=== PATIENT | female | born 1975 | race Caucasian/White ===

== ENCOUNTER 2020-01-12 07:42 | Outpatient (CLI) | payer OTHER, SELFPAY ==
[2020-01-12 07:57] LABS: Basophils Absolute Auto 0.04 K/mm3 (0.00-0.10); Basophils Percent Auto 0.6 % (0.0-1.0); Eosinophils Percent Auto 1.6 % (1.0-6.0); Hematocrit 40.1 % (35.0-49.0); Hemoglobin 13.1 g/dL (12.0-15.0); Immature Granulocyte Absolute 0.02 K/mm3 (0.00-0.00); Immature Granulocyte Percent A 0.3 % (0.0-0.0); Lymphocytes Absolute Auto 1.76 K/mm3 (1.10-4.50); Lymphocytes Percent Auto 28.2 % (18.0-42.0); Mean Corpuscular HGB Conc 32.7 g/dL (32.0-36.0); Mean Corpuscular Hemoglobin 30.8 pg (27.0-31.0); Mean Corpuscular Volume 94.1 fL (78.0-102.0); Mean Platelet Volume 9.7 fl (9.2-11.8); Monocytes Absolute Auto 0.76 K/mm3 (0.10-0.90); Monocytes Percent Auto 12.2 % (2.0-11.0); Neutrophils Absolute Auto 3.6 K/mm3 (1.7-7.2); Neutrophils Percent Auto 57.1 % (50.0-70.0); Platelet Count Result 388 K/mm3 (150-420); Red Blood Count 4.26 M/mm3 (4.20-5.40); White Blood Count 6.2 K/mm3 (4.8-10.8)
[2020-01-12 08:10] LABS: Add Urine Microscopic? YES; Appearance Urine Clear (Clear); Bilirubin Urine Negative (Negative); Color Urine Yellow (Yellow); Glucose Urine UA Negative (Negative); Ketones Urine Negative (Negative); Leukocyte Esterase Ur Negative LEU/UL (Negative); Nitrate Urine Negative (Negative); Protein Urine Negative (Negative); Specific Grav Ur 1.025 (1.010-1.020); Urobilinogen Urine 0.2 mg/dL (0.2-1.0)
[2020-01-12 08:18] LABS: Bacteria Urine 2+ /hpf; RBC Urine >75 /hpf (0-2); Squamous Epithelial Cell Urine Few /hpf (Few); WBC Urine 0-3 /hpf (0-3)
[2020-01-12 08:19] LABS: Blood Urine 3+ (Negative)
[2020-01-12 09:52] LABS: Alanine Aminotransferase 12 U/L (14-59); Albumin Level 3.6 g/dL (3.4-5.0); Alkaline Phosphatase 66 U/L (46-116); Anion Gap 16.3 mmol/L (7-16); Aspartate Amino Transferase 12 U/L (15-37); Bilirubin,Total 0.5 mg/dL (0.00-1.00); Blood Urea Nitrogen 15 mg/dL (7-18); Calcium 9.2 mg/dL (8.5-10.1); Carbon Dioxide 27 mmol/L (21-32); Chloride 105 mmol/L (98-108); Cholesterol 197 mg/dL (0-200); Estimated Glomerular Filt Rate > 60; Glucose 90 mg/dL (70-99); HDL Direct 49 mg/dL (40-60); LDL Cholesterol Calculated 130 mg/dL (<130); Osmolality Calculated 298 mOsm/kg (285-295); Potassium 4.3 mmol/L (3.5-5.1); Sodium 144 mmol/L (136-145); Thyroid Stimulating Hormone 1.07 uIU/mL (0.36-3.74); Total Protein 6.9 g/dL (6.4-8.2); Triglycerides 88 mg/dL (0-150)
== END 2020-01-12 07:43 | disposition home or self-care (01) ==
LOC: CHSLAB 07:45
PROVIDERS: PCP Internal Medicine; Visit Provider Nurse Practitioner Family
DX: E66.01 Morbid (severe) obesity due to excess calories (principal); F41.1 Generalized anxiety disorder; G43.709 Chronic migraine without aura, not intractable, without status migrainosus
CPT/HCPCS: 36415; 80053; 80061; 81001; 84443; 85025

== ENCOUNTER 2020-02-08 12:44 | Outpatient (CLI) | payer OTHER, SELFPAY ==
--- NOTE | ~2020-02-08 | MM_ITS ---
EXAMINATION: MM screening [facility] HISTORY: Screening mammogram TECHNIQUE: Craniocaudal and mediolateral oblique 3-D tomosynthesis images were obtained and synthetic 2-D images were generated. CAD analysis was submitted and interpreted. COMPARISON: 02/06/2019 diagnostic right mammogram 01/24/2019, 01/18/2018 bilateral digital screening mammogram examinations BREAST PARENCHYMAL COMPOSITION: There are scattered areas of fibroglandular density. FINDINGS: There is no evidence of suspicious mass, calcification, or architectural distortion to sugg est malignancy in either breast. There has been no suspicious interval change. IMPRESSION: 1. No mammographic evidence of malignancy. 2. Recommend routine screening mammography in one year. BI-RADS Category 1: Negative Reviewed, dictated and finalized at location A.
== END 2020-02-08 12:45 | disposition home or self-care (01) ==
LOC: CHSIMG 12:46
PROVIDERS: PCP Internal Medicine; Visit Provider Nurse Practitioner Family
DX: Z12.31 Encounter for screening mammogram for malignant neoplasm of breast (principal)
CPT/HCPCS: 77063; 77067

== ENCOUNTER 2020-08-26 11:48 | Outpatient (CLI) | payer OTHER, SELFPAY ==
[2020-08-27 13:51] LABS: SARS-CoV-2 RNA PCR Negative
== END 2020-08-26 11:49 | disposition home or self-care (01) ==
LOC: CHSLAB 11:50
PROVIDERS: PCP Internal Medicine; Visit Provider Internal Medicine
DX: Z20.828 Contact with and (suspected) exposure to other viral communicable diseases (principal)
CPT/HCPCS: 87635; C9803; U0003

== ENCOUNTER 2021-01-17 08:25 | Outpatient (CLI) | payer OTHER, SELFPAY ==
[2021-01-17 08:41] LABS: Add Urine Microscopic? NO; Appearance Urine Clear (Clear); Basophils Absolute Auto 0.04 K/mm3 (0.00-0.10); Basophils Percent Auto 0.4 % (0.0-1.0); Bilirubin Urine Negative (Negative); Blood Urine Negative (Negative); Color Urine Yellow (Yellow); Eosinophils Absolute Auto 0.12 K/mm3 (0.02-0.50); Eosinophils Percent Auto 1.3 % (1.0-6.0); Glucose Urine UA Negative (Negative); Hematocrit 39.5 % (35.0-49.0); Hemoglobin 12.8 g/dL (12.0-15.0); Immature Granulocyte Absolute 0.05 K/mm3 (0.00-0.00); Immature Granulocyte Percent A 0.5 % (0.0-0.0); Ketones Urine Negative (Negative); Leukocyte Esterase Ur Negative LEU/UL (Negative); Lymphocytes Absolute Auto 1.91 K/mm3 (1.10-4.50); Lymphocytes Percent Auto 20.7 % (18.0-42.0); Mean Corpuscular HGB Conc 32.4 g/dL (32.0-36.0); Mean Corpuscular Hemoglobin 30.8 pg (27.0-31.0); Mean Platelet Volume 9.7 fl (9.2-11.8); Monocytes Absolute Auto 0.83 K/mm3 (0.10-0.90); Neutrophils Absolute Auto 6.3 K/mm3 (1.7-7.2); Neutrophils Percent Auto 68.1 % (50.0-70.0); Nitrate Urine Negative (Negative); Platelet Count Result 375 K/mm3 (150-420); Protein Urine Negative (Negative); Red Blood Count 4.16 M/mm3 (4.20-5.40); Red Cell Distribution Width 12.7 % (11.6-14.4); Specific Grav Ur 1.025 (1.010-1.020); Urobilinogen Urine 0.2 mg/dL (0.2-1.0); White Blood Count 9.2 K/mm3 (4.8-10.8)
[2021-01-17 09:32] LABS: Alanine Aminotransferase 10 U/L (14-59); Albumin Level 3.5 g/dL (3.4-5.0); Alkaline Phosphatase 64 U/L (46-116); Anion Gap 11 mmol/L (8-16); Aspartate Amino Transferase < 10 U/L (15-37); Bilirubin,Total 0.7 mg/dL (0.00-1.00); Blood Urea Nitrogen 15 mg/dL (7-18); Calcium 8.8 mg/dL (8.5-10.1); Carbon Dioxide 27 mmol/L (21-32); Chloride 102 mmol/L (98-108); Cholesterol 195 mg/dL (0-200); Estimated Glomerular Filt Rate > 60; Free T4 Free Thyroxine 1.19 ng/dL (0.76-1.46); Glucose 88 mg/dL (70-99); HDL Direct 58 mg/dL (40-60); LDL Cholesterol Calculated 112 mg/dL (<130); Osmolality Calculated 289 mOsm/kg (285-295); Potassium 4.5 mmol/L (3.5-5.1); Sodium 140 mmol/L (136-145); Thyroid Stimulating Hormone 1.37 uIU/mL (0.36-3.74); Triglycerides 123 mg/dL (0-150)
== END 2021-01-17 08:26 | disposition home or self-care (01) ==
LOC: CHSLAB 08:27
PROVIDERS: PCP Nurse Practitioner Family; Visit Provider Nurse Practitioner Family
DX: Z00.00 Encounter for general adult medical examination without abnormal findings (principal); G43.709 Chronic migraine without aura, not intractable, without status migrainosus; F41.1 Generalized anxiety disorder
CPT/HCPCS: 36415; 80053; 80061; 81003; 84439; 84443; 85025

== ENCOUNTER 2021-01-22 07:50 | Outpatient (CLI) | payer OTHER, SELFPAY ==
--- NOTE | ~2021-01-22 | US_ITS ---
US right upper quadrant INDICATION: Abnormal liver function tests. PROCEDURE: Realtime right upper abdominal ultrasound. COMPARISON: Limited abdominal ultrasound dated 09/22/2012 FINDINGS: The pancreas is normal without focal mass or pancreatic ductal dilation. There is asymmetr ic hyperechoic mass right hepatic lobe measuring 6.3 x 5.6 x 5.3 cm, suspicious for malignancy. Remai nder of the liver echotexture is heterogeneous. There is normal directional flow in the portal vein. Gallbladder is grossly unremarkable. No definite gallstones. No gallbladder wall thickening. Common bile duct measures 4 mm. No sonographic He's sign. IMPRESSION: 1: Heterogeneous predominantly hyperechoic 6.3 cm mass right hepatic lobe, suspicious for malignancy. Correlation with contrast-enhanced CT is recommended. Reviewed, dictated and finalized at location A. IMPRESSION: 1: Heterogeneous predominantly hyperechoic 6.3 cm mass right hepatic lobe, susp icious for malignancy. Correlation with contrast-enhanced CT is recommended.
== END 2021-01-22 07:51 | disposition home or self-care (01) ==
LOC: CHSIMG 07:52
PROVIDERS: PCP Nurse Practitioner Family; Visit Provider Nurse Practitioner Family
DX: R94.5 Abnormal results of liver function studies (principal); D18.00 Hemangioma unspecified site; R16.0 Hepatomegaly, not elsewhere classified
CPT/HCPCS: 76705

== ENCOUNTER 2021-02-09 07:55 | Outpatient (CLI) | payer OTHER, SELFPAY ==
--- NOTE | ~2021-02-09 | CT_ITS ---
EXAMINATION: CT abdomen w con INDICATION: Liver mass on ultrasound TECHNIQUE: Computed tomographic images of the abdomen were obtained after the administration of 100 c c of Omnipaque 350 intravenous contrast. The dose-length product (DLP) was 744.25 mGy-cm. Automated e xposure control and iterative reconstruction technique were employed. COMPARISON: 01/22/2021, 03/08/2012 FINDINGS: There is an 8.7 x 7.2 cm right hepatic lobe mass with interrupted peripheral nodular enhanc ement, consistent with a hemangioma. No suspicious liver mass is identified. The spleen, pancreas, ga llbladder, and adrenal glands are normal. The kidneys are unremarkable. There are no pathologically e nlarged abdominal lymph nodes. There is no free intraperitoneal gas or evidence of bowel obstruction. IMPRESSION: 1. Large hemangioma of the right hepatic lobe corresponding to the ultrasound lesion in question. Reviewed, dictated and finalized at location B. IMPRESSION: 1. Large hemangioma of the right hepatic lobe corresponding to the ultrasound l esion in question.
--- NOTE | ~2021-02-09 | MM_ITS ---
EXAMINATION: MM screening [facility] HISTORY: Screening TECHNIQUE: Craniocaudal and mediolateral oblique 3-D tomosynthesis images were obtained and synthetic 2-D images were generated. CAD analysis was submitted and interpreted. COMPARISON: Comparison to multiple prior studies sequentially, with oldest reviewed study dated 01/18. BREAST PARENCHYMAL COMPOSITION: There are scattered areas of fibroglandular density. FINDINGS: There is no evidence of suspicious mass, calcification, or architectural distortion to sugg est malignancy in either breast. There has been no suspicious interval change. IMPRESSION: 1. No mammographic evidence of malignancy. 2. Recommend routine screening mammography in one year. BI-RADS Category 1: Negative Reviewed, dictated and finalized at location A.
== END 2021-02-09 07:56 | disposition home or self-care (01) ==
LOC: CHSIMG 07:57
PROVIDERS: PCP Internal Medicine; Visit Provider Internal Medicine
DX: R16.0 Hepatomegaly, not elsewhere classified (principal); Z12.31 Encounter for screening mammogram for malignant neoplasm of breast
CPT/HCPCS: 74160; 77063; 77067; Q9967

== ENCOUNTER 2021-03-30 07:03 | Emergency (ER) | payer OTHER, SELFPAY ==
[2021-03-30 07:10] VITALS: BP 192/95; PULSE 70; RESP 17; TEMP 36.6; O2SAT 98
--- NOTE | 2021-03-30 07:21 | ED.GENADULT ---
HPI - General Adult General Chief complaint: Headache Stated complaint: Migraine Source: patient Mode of arrival: ambulatory Limitations: no limitations History of Present Illness HPI narrative: Mirna is a 45F with a PMH of cluster headaches and anxiety that presented to the ED with a headache. She has severe stabbing pain in her right eye that started 2 days ago. Pain came about over 1 hour. No vision or hearing changes. It feels like all of her other cluster headaches. Admits nausea but no vomiting. No syncope or lightheadedness. Related Data Home Medications Medication Instructions Recorded Confirmed norgestimate-ethinyl estradiol 1 tablet PO DAILY 03/30/21 03/30/21 [[id number]] Allergies Allergy/AdvReac Type Severity Reaction Status Date / Time Penicillins Allergy Unknown Flushing Verified 03/30/21 07:08 Review of Systems Constitutional: Constitutional: Denies chills, Denies fever(s) and Denies weakness Eyes: Eyes: Reports no additional eye complaints ENT: Reports as per HPI Cardiovascular: Cardiovascular: Reports no additional cardiovascular complaints Respiratory: Respiratory: Reports no additional respiratory complaints Gastrointestinal: Gastrointestinal: Reports no additional gastrointestinal complaints Genitourinary: Genitourinary: Reports no additional female genitourinary complaints Musculoskeletal: Musculoskeletal: Reports no additional musculoskeletal complaints Integumentary/Breasts: Skin/Breast: Reports system reviewed and no additional complaints, except as docu Neurologic: Reports as per HPI Psychiatric: Psychiatric: Reports no additional psychiatric complaints Endocrine: Endocrine: Reports no additional endocrine complaints Hematologic/Lymphatic: Hematologic/Lymphatic: Reports no additional hematologic/lymphatic complaints Allergic/Immunologic: Allergic/Immunologic: Reports no additional allergic/immunologic complaints Exam Const: General: healthy appearing, no acute distress and alert; No confusion Orientation/consciousness: patient oriented x3 Limitations: No altered mental status HENMT: Head: normal to inspection Other: atraumatic Eyes: Conjunctivae: conjunctivae normal Pupils: Equal, round and reactive pupils present Neck: Neck: normal visual inspection Chest: Chest palpation & inspection: normal inspection of the chest Resp: Effort & Inspection: normal respiratory effort, not labored and not tachypneic Cardio: Rate: regular rate Skin: General skin exam: normal color Rashes: no rashes Neuro: General: patient oriented x3 and moves all extremities Other: Normal finger to nose, normal rapid alternating movements, cranial nerves II-XII intact as tested, normal speech and cognition. Extrem: General: normal to inspection Psych: Appearance: grossly normal Mental Status: mental status grossly normal Thought content: Yes Normal thought content present Course Course Emergency Course: Ordered toradol, benadryl, compazine and fluids for the headache. After meds her pain was a 2/10 Vital Signs Vital signs: Vital Signs Temperature 97.8 F 03/30/21 07:10 Pulse Rate 70 03/30/21 07:10 Respiratory Rate 17 03/30/21 07:10 Blood Pressure 192/95 H 03/30/21 07:10 Pulse Oximetry 98 03/30/21 07:10 Temperature 97.8 F 03/30/21 07:10 Pulse Rate 70 03/30/21 07:10 Respiratory Rate 17 03/30/21 08:34 Blood Pressure 192/95 H 03/30/21 07:10 Pulse Oximetry 98 03/30/21 07:10 Medical Decision Making Vital Signs Vital Signs: Vital Signs Temperature 97.8 F 03/30/21 07:10 Pulse Rate 70 03/30/21 07:10 Respiratory Rate 17 03/30/21 07:10 Blood Pressure 192/95 H 03/30/21 07:10 Pulse Oximetry 98 03/30/21 07:10 Temperature 97.8 F 03/30/21 07:10 Pulse Rate 70 03/30/21 07:10 Respiratory Rate 17 03/30/21 08:34 Blood Pressure 192/95 H 03/30/21 07:10 Pulse Oximetry 98 03/30/21 07:10 Discharge Plan Di
[2021-03-30] MEDS: diphenhydrAMINE HCl INJ 50 MG/ML VIAL IV PUSH (07:34)
[2021-03-30] MEDS: SODIUM CHLORIDE 0.9% IV 1,000 ML 999 ML IV CONT (07:35)
[2021-03-30] MEDS: KETOROLAC 30 MG/ML VIAL (*BKC) IV PUSH (07:35)
[2021-03-30] MEDS: PROCHLORPERAZINE EDISYLATE 10 MG/2 ML VIAL IV PUSH (07:35)
[2021-03-30 08:34] VITALS: RESP 17
== END 2021-03-30 08:35 | disposition home or self-care (01) ==
PROVIDERS: Emergency Provider Family Medicine; PCP Internal Medicine
DX: G44.009 Cluster headache syndrome, unspecified, not intractable (principal)
CPT/HCPCS: 96361; 96374; 96375; 99283; 99284; J0780; J1200; J1885; J7030

== ENCOUNTER 2021-10-12 11:33 | Outpatient (CLI) | payer OTHER, SELFPAY ==
[2021-10-12 11:46] LABS: Basophils Absolute Auto 0.04 K/mm3 (0.00-0.10); Basophils Percent Auto 0.4 % (0.0-1.0); Eosinophils Absolute Auto 0.14 K/mm3 (0.02-0.50); Eosinophils Percent Auto 1.4 % (1.0-6.0); Hematocrit 39.9 % (35.0-49.0); Hemoglobin 13.6 g/dL (12.0-15.0); Immature Granulocyte Absolute 0.03 K/mm3 (0.00-0.00); Immature Granulocyte Percent A 0.3 % (0.0-0.0); Lymphocytes Absolute Auto 1.94 K/mm3 (1.10-4.50); Lymphocytes Percent Auto 19.9 % (18.0-42.0); Mean Corpuscular HGB Conc 34.1 g/dL (32.0-36.0); Mean Corpuscular Hemoglobin 31.1 pg (27.0-31.0); Mean Corpuscular Volume 91.3 fL (78.0-102.0); Mean Platelet Volume 9.5 fl (9.2-11.8); Monocytes Percent Auto 8.2 % (2.0-11.0); Neutrophils Absolute Auto 6.8 K/mm3 (1.7-7.2); Neutrophils Percent Auto 69.8 % (50.0-70.0); Platelet Count Result 375 K/mm3 (150-420); Red Blood Count 4.37 M/mm3 (4.20-5.40); Red Cell Distribution Width 12.5 % (11.6-14.4); White Blood Count 9.7 K/mm3 (4.8-10.8)
== END 2021-10-12 11:34 | disposition home or self-care (01) ==
LOC: CHSLAB 11:35
PROVIDERS: PCP Internal Medicine; Visit Provider Internal Medicine
DX: J03.90 Acute tonsillitis, unspecified (principal)
CPT/HCPCS: 36415; 85025

== ENCOUNTER 2021-10-29 10:24 | Outpatient (CLI) | payer OTHER, SELFPAY ==
[2021-10-29 11:10] LABS: Anion Gap 10 mmol/L (8-16); Blood Urea Nitrogen 23 mg/dL (7-18); Calcium 9.4 mg/dL (8.5-10.1); Carbon Dioxide 28 mmol/L (21-32); Chloride 102 mmol/L (98-108); Estimated Glomerular Filt Rate > 60; Glucose 75 mg/dL (70-99); Osmolality Calculated 292 mOsm/kg (285-295); Potassium 4.5 mmol/L (3.5-5.1); Sodium 140 mmol/L (136-145)
== END 2021-10-29 10:25 | disposition home or self-care (01) ==
LOC: CHSLAB 10:26
PROVIDERS: PCP Internal Medicine; Visit Provider Internal Medicine
DX: I10 Essential (primary) hypertension (principal)
CPT/HCPCS: 36415; 80048

== ENCOUNTER 2021-12-04 10:14 | Outpatient (CLI) | payer OTHER, SELFPAY ==
[2021-12-04 11:00] LABS: Anion Gap 10 mmol/L (8-16); Blood Urea Nitrogen 18 mg/dL (7-18); Calcium 9.2 mg/dL (8.5-10.1); Carbon Dioxide 28 mmol/L (21-32); Chloride 100 mmol/L (98-108); Estimated Glomerular Filt Rate > 60; Glucose 91 mg/dL (70-99); Osmolality Calculated 287 mOsm/kg (285-295); Potassium 3.9 mmol/L (3.5-5.1); Sodium 138 mmol/L (136-145)
== END 2021-12-04 10:15 | disposition home or self-care (01) ==
LOC: CHSLAB 10:15
PROVIDERS: PCP Internal Medicine; Visit Provider Internal Medicine
DX: I10 Essential (primary) hypertension (principal)
CPT/HCPCS: 36415; 80048

== ENCOUNTER 2022-02-11 10:50 | Outpatient (CLI) | payer OTHER, SELFPAY ==
--- NOTE | ~2022-02-11 | MM_ITS ---
EXAMINATION: MM screening [facility] HISTORY: Screening TECHNIQUE: Craniocaudal and mediolateral oblique 3-D tomosynthesis images were obtained and synthetic 2-D images were generated. CAD analysis was submitted and interpreted. COMPARISON: Comparison to multiple prior studies sequentially, with oldest reviewed study dated 01/18. BREAST PARENCHYMAL COMPOSITION: There are scattered areas of fibroglandular density. FINDINGS: There is no evidence of suspicious mass, calcification, or architectural distortion to sugg est malignancy in either breast. There has been no suspicious interval change. IMPRESSION: 1. No mammographic evidence of malignancy. 2. Recommend routine screening mammography in one year. BI-RADS Category 1: Negative Reviewed, dictated and finalized at location A.
== END 2022-02-11 10:51 | disposition home or self-care (01) ==
LOC: CHSIMG 10:51
PROVIDERS: PCP Internal Medicine; Visit Provider Nurse Practitioner
DX: Z12.31 Encounter for screening mammogram for malignant neoplasm of breast (principal)
CPT/HCPCS: 77063; 77067

== ENCOUNTER 2022-03-06 07:33 | Outpatient (CLI) | payer OTHER, SELFPAY ==
[2022-03-06 07:54] LABS: Basophils Absolute Auto 0.06 K/mm3 (0.00-0.10); Basophils Percent Auto 0.7 % (0.0-1.0); Eosinophils Absolute Auto 0.22 K/mm3 (0.02-0.50); Eosinophils Percent Auto 2.6 % (1.0-6.0); Hematocrit 39.6 % (35.0-49.0); Immature Granulocyte Absolute 0.03 K/mm3 (0.00-0.00); Immature Granulocyte Percent A 0.4 % (0.0-0.0); Lymphocytes Absolute Auto 2.05 K/mm3 (1.10-4.50); Lymphocytes Percent Auto 24.1 % (18.0-42.0); Mean Corpuscular HGB Conc 32.8 g/dL (32.0-36.0); Mean Corpuscular Hemoglobin 31.4 pg (27.0-31.0); Mean Corpuscular Volume 95.7 fL (78.0-102.0); Mean Platelet Volume 9.4 fl (9.2-11.8); Monocytes Absolute Auto 0.86 K/mm3 (0.10-0.90); Monocytes Percent Auto 10.1 % (2.0-11.0); Neutrophils Absolute Auto 5.3 K/mm3 (1.7-7.2); Neutrophils Percent Auto 62.1 % (50.0-70.0); Platelet Count Result 460 K/mm3 (150-420); Red Blood Count 4.14 M/mm3 (4.20-5.40); Red Cell Distribution Width 12.7 % (11.6-14.4); White Blood Count 8.5 K/mm3 (4.8-10.8)
[2022-03-06 08:14] LABS: Alanine Aminotransferase 18 U/L (14-59); Albumin Level 3.4 g/dL (3.4-5.0); Alkaline Phosphatase 73 U/L (46-116); Anion Gap 7 mmol/L (8-16); Aspartate Amino Transferase 14 U/L (15-37); Bilirubin,Total 0.5 mg/dL (0.00-1.00); Blood Urea Nitrogen 17 mg/dL (7-18); Calcium 8.9 mg/dL (8.5-10.1); Carbon Dioxide 29 mmol/L (21-32); Chloride 103 mmol/L (98-108); Cholesterol 224 mg/dL (0-200); Estimated Glomerular Filt Rate > 60; Free T4 Free Thyroxine 1.23 ng/dL (0.76-1.46); Glucose 94 mg/dL (70-99); HDL Direct 58 mg/dL (40-60); LDL Cholesterol Calculated 149 mg/dL (<130); Osmolality Calculated 289 mOsm/kg (285-295); Potassium 3.5 mmol/L (3.5-5.1); Sodium 139 mmol/L (136-145); Thyroid Stimulating Hormone 1.39 uIU/mL (0.36-3.74); Total Protein 7.6 g/dL (6.4-8.2); Triglycerides 85 mg/dL (0-150)
[2022-03-06 11:39] LABS: Bilirubin Urine Negative (Negative); Blood Urine 3+ (Negative); Glucose Urine UA Negative (Negative); Ketones Urine Negative (Negative); Leukocyte Esterase Ur Trace LEU/UL (Negative); Nitrate Urine Negative (Negative); Protein Urine 2+ (Negative); Urobilinogen Urine 0.2 mg/dL (0.2-1.0); pH Urine 5.5 (5.0-8.0)
[2022-03-06 11:43] LABS: Add Urine Microscopic? YES; Appearance Urine Cloudy (Clear); Bacteria Urine 1+ /hpf; Color Urine Dark Brown (Yellow); Squamous Epithelial Cell Urine Few /hpf (Few); WBC Urine 0-3 /hpf (0-3)
[2022-03-06 11:44] LABS: RBC Urine >75 /hpf (0-2)
[2022-03-10 15:32] LABS: Vitamin D 25 Hydroxy 26 ng/mL (30-100)
== END 2022-03-06 07:34 | disposition home or self-care (01) ==
LOC: CHSLAB 07:35
PROVIDERS: PCP Internal Medicine; Visit Provider Nurse Practitioner
DX: Z00.00 Encounter for general adult medical examination without abnormal findings (principal); E55.9 Vitamin D deficiency, unspecified; R53.83 Other fatigue
CPT/HCPCS: 36415; 80053; 80061; 81001; 82306; 84439; 84443; 85025

== ENCOUNTER 2022-03-15 12:15 | Outpatient (CLI) | payer OTHER, SELFPAY ==
[2022-03-15 12:32] LABS: Basophils Absolute Auto 0.07 K/mm3 (0.00-0.10); Basophils Percent Auto 0.6 % (0.0-1.0); Eosinophils Absolute Auto 0.15 K/mm3 (0.02-0.50); Eosinophils Percent Auto 1.3 % (1.0-6.0); Hematocrit 38.7 % (35.0-49.0); Immature Granulocyte Absolute 0.04 K/mm3 (0.00-0.00); Immature Granulocyte Percent A 0.3 % (0.0-0.0); Lymphocytes Absolute Auto 2.56 K/mm3 (1.10-4.50); Lymphocytes Percent Auto 21.6 % (18.0-42.0); Mean Corpuscular HGB Conc 33.6 g/dL (32.0-36.0); Mean Corpuscular Hemoglobin 31.7 pg (27.0-31.0); Mean Corpuscular Volume 94.4 fL (78.0-102.0); Mean Platelet Volume 9.6 fl (9.2-11.8); Monocytes Absolute Auto 0.93 K/mm3 (0.10-0.90); Monocytes Percent Auto 7.8 % (2.0-11.0); Neutrophils Absolute Auto 8.1 K/mm3 (1.7-7.2); Neutrophils Percent Auto 68.4 % (50.0-70.0); Platelet Count Result 471 K/mm3 (150-420); Red Cell Distribution Width 12.2 % (11.6-14.4); White Blood Count 11.9 K/mm3 (4.8-10.8)
[2022-03-15 12:35] LABS: Appearance Urine Clear (Clear); Bilirubin Urine Negative (Negative); Color Urine Light Yellow (Yellow); Glucose Urine UA Negative (Negative); Ketones Urine Negative (Negative); Leukocyte Esterase Ur Trace LEU/UL (Negative); Nitrate Urine Negative (Negative); Protein Urine Negative (Negative); Specific Grav Ur 1.015 (1.010-1.020); Urobilinogen Urine 0.2 mg/dL (0.2-1.0)
[2022-03-15 12:39] LABS: Add Urine Microscopic? YES; Bacteria Urine 2+ /hpf; Blood Urine Trace-Intact (Negative); RBC Urine 0-2 /hpf (0-2); Squamous Epithelial Cell Urine Moderate /hpf (Few); WBC Urine 0-3 /hpf (0-3)
[2022-03-15 13:13] LABS: Alanine Aminotransferase 8 U/L (14-59); Albumin Level 3.6 g/dL (3.4-5.0); Alkaline Phosphatase 76 U/L (46-116); Anion Gap 10 mmol/L (8-16); Aspartate Amino Transferase 17 U/L (15-37); Bilirubin,Total 0.5 mg/dL (0.00-1.00); Blood Urea Nitrogen 16 mg/dL (7-18); CRP 1.7 mg/dL (0.0-0.9); Carbon Dioxide 27 mmol/L (21-32); Chloride 100 mmol/L (98-108); Estimated Glomerular Filt Rate > 60; Glucose 87 mg/dL (70-99); NT Pro B Type Natriuretic Pept 102 pg/mL (0-125); Osmolality Calculated 284 mOsm/kg (285-295); Potassium 3.3 mmol/L (3.5-5.1); Sodium 137 mmol/L (136-145); Total Protein 7.8 g/dL (6.4-8.2); Uric Acid 6.2 mg/dL (2.6-6.0)
== END 2022-03-15 12:16 | disposition home or self-care (01) ==
LOC: CHSLAB 12:18
PROVIDERS: PCP Internal Medicine; Visit Provider Nurse Practitioner Family
DX: I50.9 Heart failure, unspecified (principal); M79.89 Other specified soft tissue disorders; I10 Essential (primary) hypertension; R31.9 Hematuria, unspecified
CPT/HCPCS: 36415; 80053; 81001; 83880; 84550; 85025; 85380; 86140; 88112; 88175; G0145

== ENCOUNTER 2022-03-16 10:11 | Outpatient (CLI) | payer OTHER, SELFPAY ==
--- NOTE | ~2022-03-16 | US_ITS ---
EXAMINATION:US venous doppler LE BI INDICATION:Leg swelling TECHNIQUE: Multiple grayscale, color flow and Doppler images of the right and left lower extremity de ep venous systems were obtained and reviewed. COMPARISON:No prior studies for comparison. FINDINGS: The common femoral, superficial femoral and popliteal veins demonstrate normal respiratory variation, augmentation and compressibility. Color flow is also seen within the posterior tibial, pe roneal, greater saphenous and profunda veins. There is a hypoechoic mass in the right popliteal fossa measuring 2.4 x 1.8 x 1.8 cm, possibly an enlarged lymph node or complicated Grya's cyst. IMPRESSION: 1: No lower extremity deep venous thrombosis. 2: Hypoechoic mass in the right popliteal fossa measuring 2.4 x 1.8 x 1.8 cm, possibly an enlarged l ymph node or complicated Gray's cyst. Reviewed, dictated and finalized at location A. IMPRESSION: 1: No lower extremity deep venous thrombosis. 2: Hypoechoic mass in the right popliteal fossa measuring 2.4 x 1.8 x 1.8 cm, possibly an enlarged lymph node or complicated Gray's cyst.
== END 2022-03-16 10:12 | disposition home or self-care (01) ==
LOC: CHSIMG 10:15
PROVIDERS: PCP Internal Medicine; Visit Provider Nurse Practitioner Family
DX: M79.89 Other specified soft tissue disorders (principal)
CPT/HCPCS: 93970

== ENCOUNTER 2022-03-27 06:43 | Outpatient (CLI) | payer OTHER, SELFPAY ==
--- NOTE | ~2022-03-27 | MR_ITS ---
EXAMINATION: MR knee RT wo con DATE: 03/27/2022 10:13 INDICATION: Soft tissue mass. TECHNIQUE: Magnetic resonance imaging (MRI) of the right knee was performed without intravenous contr ast. COMPARISON: Ultrasound 03/16/2022 FINDINGS: Medial compartment: Medial meniscus is normal. Medial compartment cartilage is normal, but the large vsqdj-ye-nvxg decrea ses sensitivity. Lateral compartment: Lateral meniscus is normal. Lateral compartment cartilage is normal, but the large pscwc-qh-ytrb decr eases sensitivity. Patellofemoral compartment: Patellar and trochlear cartilage are normal, but the large xbrbo-jh-rejg decreases sensitivity. Ligaments and tendons: The anterior and posterior cruciate ligaments are normal. Medial collateral ligament and lateral harpreet ateral ligament complex are normal. There is mild patellar tendinopathy. Fluid: There is a small knee joint effusion. Osseous/other: There is a 2.4 x 1.9 x 2.1 cm mass posterior to the popliteal vessels that demonstrates increased T2- weighted signal intensity. IMPRESSION: 1. 2.4 cm mass posterior to the popliteal vessels suspicious for neoplasm such as peripheral nerve s melissa tumor. Ultrasound-guided core needle biopsy is recommended. Reviewed, dictated and finalized at location A. IMPRESSION: 1. 2.4 cm mass posterior to the popliteal vessels suspicious for neoplasm such as peripheral nerve sheath tumor. Ultrasound-guided core needle biopsy is elvis mmended.
== END 2022-03-27 06:44 | disposition home or self-care (01) ==
LOC: CHSIMG 06:45
PROVIDERS: PCP Internal Medicine; Visit Provider Internal Medicine
DX: R22.41 Localized swelling, mass and lump, right lower limb (principal)
CPT/HCPCS: 73721

== ENCOUNTER 2022-04-17 07:40 | Outpatient (CLI) | payer OTHER, SELFPAY ==
[2022-04-17 08:00] LABS: Basophils Absolute Auto 0.06 K/mm3 (0.00-0.10); Basophils Percent Auto 0.5 % (0.0-1.0); Eosinophils Absolute Auto 0.19 K/mm3 (0.02-0.50); Eosinophils Percent Auto 1.7 % (1.0-6.0); Hematocrit 40.3 % (35.0-49.0); Hemoglobin 13.2 g/dL (12.0-15.0); Immature Granulocyte Absolute 0.04 K/mm3 (0.00-0.00); Immature Granulocyte Percent A 0.4 % (0.0-0.0); Lymphocytes Absolute Auto 1.69 K/mm3 (1.10-4.50); Mean Corpuscular HGB Conc 32.8 g/dL (32.0-36.0); Mean Corpuscular Hemoglobin 31.4 pg (27.0-31.0); Mean Platelet Volume 9.5 fl (9.2-11.8); Monocytes Absolute Auto 1.05 K/mm3 (0.10-0.90); Monocytes Percent Auto 9.3 % (2.0-11.0); Neutrophils Absolute Auto 8.2 K/mm3 (1.7-7.2); Neutrophils Percent Auto 73.1 % (50.0-70.0); Platelet Count Result 390 K/mm3 (150-420); White Blood Count 11.2 K/mm3 (4.8-10.8)
[2022-04-17 08:09] LABS: Anion Gap 7 mmol/L (8-16); Blood Urea Nitrogen 16 mg/dL (7-18); Calcium 8.9 mg/dL (8.5-10.1); Carbon Dioxide 28 mmol/L (21-32); Chloride 103 mmol/L (98-108); Estimated Glomerular Filt Rate > 60; Glucose 112 mg/dL (70-99); Osmolality Calculated 288 mOsm/kg (285-295); Sodium 138 mmol/L (136-145)
== END 2022-04-17 07:41 | disposition home or self-care (01) ==
LOC: CHSLAB 07:42
PROVIDERS: PCP Internal Medicine; Visit Provider Internal Medicine
DX: D75.839 Thrombocytosis, unspecified (principal); I10 Essential (primary) hypertension
CPT/HCPCS: 36415; 80048; 85025

== ENCOUNTER 2022-10-16 08:53 | Outpatient (CLI) | payer OTHER, SELFPAY ==
[2022-10-16 09:11] LABS: Add Urine Microscopic? YES; Bilirubin Urine Negative (Negative); Blood Urine 3+ (Negative); Glucose Urine UA Negative (Negative); Ketones Urine Negative (Negative); Leukocyte Esterase Ur 2+ (Negative); Nitrate Urine Negative (Negative); Protein Urine 2+ (Negative); Urobilinogen Urine 0.2 mg/dL (0.2-1.0)
[2022-10-16 09:23] LABS: Appearance Urine Cloudy (Clear); Color Urine Red (Yellow)
[2022-10-16 09:24] LABS: Bacteria Urine 2+ /hpf; Squamous Epithelial Cell Urine Moderate /hpf (Few); WBC Urine >75 /hpf (0-3)
[2022-10-16 09:52] LABS: Alanine Aminotransferase 11 U/L (14-59); Albumin Level 3.6 g/dL (3.4-5.0); Alkaline Phosphatase 80 U/L (46-116); Anion Gap 10 mmol/L (8-16); Aspartate Amino Transferase 13 U/L (15-37); Bilirubin,Total 0.5 mg/dL (0.00-1.00); Blood Urea Nitrogen 15 mg/dL (7-18); Calcium 9.5 mg/dL (8.5-10.1); Carbon Dioxide 30 mmol/L (21-32); Chloride 101 mmol/L (98-108); Cholesterol 235 mg/dL (0-200); Estimated Glomerular Filt Rate > 60; Glucose 90 mg/dL (70-99); HDL Direct 62 mg/dL (40-60); LDL Cholesterol Calculated 156 mg/dL (<130); Osmolality Calculated 292 mOsm/kg (285-295); Sodium 141 mmol/L (136-145); Total Protein 7.5 g/dL (6.4-8.2); Triglycerides 86 mg/dL (0-150); Uric Acid 5.3 mg/dL (2.6-6.0)
== END 2022-10-16 08:54 | disposition home or self-care (01) ==
LOC: CHSLAB 08:55
PROVIDERS: PCP Internal Medicine; Visit Provider Internal Medicine
DX: E79.0 Hyperuricemia without signs of inflammatory arthritis and tophaceous disease (principal); I10 Essential (primary) hypertension; E78.2 Mixed hyperlipidemia
CPT/HCPCS: 36415; 80053; 80061; 81001; 84550

== ENCOUNTER 2022-10-18 10:19 | Outpatient (CLI) | payer OTHER, SELFPAY ==
[2022-10-18 10:44] LABS: Add Urine Microscopic? YES; Appearance Urine Cloudy (Clear); Bilirubin Urine Negative (Negative); Blood Urine 3+ (Negative); Glucose Urine UA Negative (Negative); Ketones Urine Negative (Negative); Leukocyte Esterase Ur 1+ (Negative); Nitrate Urine Negative (Negative); Protein Urine 1+ (Negative); Urobilinogen Urine 0.2 mg/dL (0.2-1.0)
[2022-10-18 10:56] LABS: Color Urine Red (Yellow); RBC Urine >75 /hpf (0-2); Renal Epithelial Cells Urine Few /hpf; Squamous Epithelial Cell Urine Few /hpf (Few)
[2022-10-18 10:57] LABS: Bacteria Urine 1+ /hpf
== END 2022-10-18 10:20 | disposition home or self-care (01) ==
LOC: CHSLAB 10:20
PROVIDERS: PCP Internal Medicine; Visit Provider Internal Medicine
DX: N39.0 Urinary tract infection, site not specified (principal)
CPT/HCPCS: 81001; 87086; 87088

== ENCOUNTER 2022-12-25 20:36 | Emergency (ER) | payer OTHER, SELFPAY ==
--- NOTE | ~2022-12-25 | CT_ITS ---
EXAMINATION: CT brain wo con DATE: 12/25/2022 21:20 INDICATION: bells palsy. RIGHT SIDE TINGLING AND FACIAL DROOP. . TECHNIQUE: Computed tomography (CT) of the head was performed without intravenous contrast. The mA wa s adjusted according to patient size. Iterative reconstruction technique was employed. The dose-lengt h product was 605.33 mGy-cm. COMPARISON: None. FINDINGS: No acute intracranial hemorrhage or extra-axial fluid collection. No hydrocephalus, mass, or herniation. No acute ischemic infarct. Unremarkable dural venous sinus attenuation. No acute osseous abnormality. The aerated spaces are clear. IMPRESSION: No acute intracranial process. Reviewed, dictated and finalized at location K. [employer]
--- NOTE | 2022-12-25 20:38 | ED.GENADULT ---
HPI - General Adult General Chief complaint: Unspecified Stated complaint: tingling R side Time Seen by Provider: 12/25/22 20:38 Source: patient Mode of arrival: ambulatory Limitations: no limitations History of Present Illness HPI narrative: Patient is a 47-year-old white female complaining of yesterday started to have some twitching around right eye and then some discomfort in the eye without visual changes. Or discharge. Then today she started having tingling in the right side of her face with drooping of her right side of her mouth. Denies any problems talking walking seeing or hearing. Any other weakness or paresthesias or numbness. Denies any pain anywhere. Denies any fever nausea vomiting diarrhea joint pain bleeding or bruising 50 cough or shortness of breath sore throat earache sinus problems nasal congestion chest pain palpitations irregular heartbeat shortness of breath problems voiding or stooling diarrhea constipation blood in her stool or melena Or lumps or bumps. Related Data Home Medications Medication Instructions Recorded Confirmed norgestimate 0.18 mg/0.215 mg/0.25 1 tablet PO DAILY 03/30/21 12/25/22 mg-ethinyl estradiol 25 mcg tablet (Pbs-Np-Exgtbnim) losartan 100 mg tablet 100 mg PO DAILY 12/25/22 12/25/22 triamterene 37.5 1 tablet PO DAILY 12/25/22 12/25/22 mg-hydrochlorothiazide 25 mg tablet Allergies Allergy/AdvReac Type Severity Reaction Status Date / Time Penicillins Allergy Unknown Flushing Verified 12/25/22 20:59 Review of Systems Review of Systems: per HPI Exam Const: General: healthy appearing Nutritional Appearance: well nourished Orientation/consciousness: patient oriented x3 Limitations: no limitations Other: white female no apparent distress head is normocephalic she is alert and oriented x4 she has right facial droop with weakness of the right side of face or upper and lower portions of the face he has definite weakness with trying to close her right eye drooping of right side of her mouth pupils are equal round react light extraocular movements are intact there is no nystagmus ears TMs are normal rest of her neuro exam is normal with regards to motor and sensory strength for upper lower extremities gait is normal mbqsvk-owyc-bjhysy is normal. Neck is supple without lymphadenopathy oropharynx is clear with moist mucous membranes. Hearing is grossly normal. Lungs are clear heart is regular rate rhythm without murmurs gallops or rubs. Abdomen is soft and nontender no hepatosplenomegaly or masses no CVA tenderness no abdominal bruits extremities no cyanosis clubbing or edema. Skin is warm and dry. Course Vital Signs Vital signs: Vital Signs Temperature 36.8 C 12/25/22 20:39 Pulse Rate 83 12/25/22 20:39 Respiratory Rate 16 12/25/22 20:39 Blood Pressure 125/85 12/25/22 20:39 Pulse Oximetry 100 12/25/22 20:39 Oxygen Delivery Room Air 12/25/22 20:39 Temperature 36.8 C 12/25/22 20:39 Pulse Rate 75 12/25/22 21:24 Respiratory Rate 16 12/25/22 21:24 Blood Pressure 124/68 12/25/22 21:24 Pulse Oximetry 98 12/25/22 21:24 Oxygen Delivery Room Air 12/25/22 21:24 Medical Decision Making MDM Narrative Medical decision making narrative: History and physical is done and she is sent for CT of the head which was negative. . Patient has no joint diseases or rash to suggest Lyme disease he has no pain in her ear to suggest otitis media mastoiditis. She does not have the present tingling complaints ofGullain-Danville syndrome, she has no other weaknesses or cranial nerve abnormalities to suggest stroke no history of Sjogren's syndrome or sarcoidosis. Patient was given 60 mg of prednisone and Protonix 40 mg and valacyclovir 1000 mg. Evaluation was discussed in detail with patient and her all questions were asked and answered and they agreed on plan. She take prednisone for a week 60 mg Protonix 40 mg daily and valacyclovir 1000
[2022-12-25 20:39] VITALS: BP 125/85; PULSE 83; RESP 16; TEMP 36.8; O2SAT 100
[2022-12-25 21:24] VITALS: BP 124/68; PULSE 75; RESP 16; O2SAT 98
[2022-12-25] MEDS: predniSONE 20 MG TABLET 60 MG PO (21:48)
[2022-12-25] MEDS: PANTOPRAZOLE 40 MG TABLET PO (21:50)
[2022-12-25] MEDS: valACYclovir HCL 500 MG TABLET 1000 MG PO (21:50)
[2022-12-25 21:58] VITALS: BP 129/70; PULSE 71; RESP 16; O2SAT 100
== END 2022-12-25 22:03 | disposition home or self-care (01) ==
PROVIDERS: Emergency Provider Emergency Medicine; PCP Internal Medicine
DX: G51.0 Bell's palsy (principal)
CPT/HCPCS: 70450; 99284; A9270; J7512

== ENCOUNTER 2023-02-14 12:01 | Outpatient (CLI) | payer OTHER, SELFPAY ==
--- NOTE | ~2023-02-14 | MM_ITS ---
EXAMINATION: MM screening [facility] BI w [facility] HISTORY: Screening mammogram TECHNIQUE: Craniocaudal and mediolateral oblique 3-D tomosynthesis images were obtained and synthetic 2-D images were generated. CAD analysis was submitted and interpreted. COMPARISON: 02/11/2022, 02/09/2021, 02/08/2020 BREAST PARENCHYMAL COMPOSITION: There are scattered areas of fibroglandular density. FINDINGS: No suspicious mass, calcification, or architectural distortion are identified in either martina ast to suggest malignancy. There has been no suspicious interval change. IMPRESSION: 1. No mammographic evidence of malignancy. 2. Recommend routine screening mammography in one year. BI-RADS Category 1: Negative Reviewed, dictated and finalized at location A.
== END 2023-02-14 12:02 | disposition home or self-care (01) ==
LOC: CHSIMG 12:03
PROVIDERS: PCP Internal Medicine; Visit Provider Internal Medicine
DX: Z12.31 Encounter for screening mammogram for malignant neoplasm of breast (principal)
CPT/HCPCS: 77063; 77067

== ENCOUNTER 2023-04-30 08:18 | Outpatient (CLI) | payer OTHER, SELFPAY ==
[2023-04-30 08:44] LABS: Appearance Urine Slightly Cloudy (Clear); Bilirubin Urine Negative (Negative); Blood Urine 3+ (Negative); Color Urine Yellow (Yellow); Glucose Urine UA Negative (Negative); Ketones Urine Negative (Negative); Leukocyte Esterase Ur Negative (Negative); Nitrate Urine Negative (Negative); Protein Urine 1+ (Negative); Urobilinogen Urine 0.2 mg/dL (0.2-1.0)
[2023-04-30 08:51] LABS: Alanine Aminotransferase 17 U/L (14-59); Albumin Level 3.7 g/dL (3.4-5.0); Alkaline Phosphatase 80 U/L (46-116); Anion Gap 9 mmol/L (8-16); Aspartate Amino Transferase 32 U/L (15-37); Bilirubin,Total 0.5 mg/dL (0.00-1.00); Blood Urea Nitrogen 13 mg/dL (7-18); Calcium 9.4 mg/dL (8.5-10.1); Carbon Dioxide 29 mmol/L (21-32); Chloride 103 mmol/L (98-108); Cholesterol 218 mg/dL (0-200); Estimated Glomerular Filt Rate > 60; Glucose 108 mg/dL (70-99); HDL Direct 58 mg/dL (40-60); LDL Cholesterol Calculated 146 mg/dL (<130); Osmolality Calculated 293 mOsm/kg (285-295); Potassium 3.7 mmol/L (3.5-5.1); Sodium 141 mmol/L (136-145); Total Protein 7.3 g/dL (6.4-8.2); Triglycerides 72 mg/dL (0-150)
[2023-04-30 08:54] LABS: Add Urine Microscopic? YES; Bacteria Urine 1+ /hpf; Mucus Urine Few /lpf; Squamous Epithelial Cell Urine Moderate /hpf (Few); WBC Urine None seen /hpf (0-3)
== END 2023-04-30 08:19 | disposition home or self-care (01) ==
LOC: CHSLAB 08:19
PROVIDERS: PCP Internal Medicine; Visit Provider Internal Medicine
DX: I10 Essential (primary) hypertension (principal); E78.2 Mixed hyperlipidemia
CPT/HCPCS: 36415; 80053; 80061; 81001

== ENCOUNTER 2023-08-13 09:18 | Outpatient (CLI) | payer OTHER, SELFPAY ==
[2023-08-13 09:51] LABS: Hemoglobin A1C 5.5 % (<5.7)
[2023-08-13 10:05] LABS: Alanine Aminotransferase 9 U/L (14-59); Albumin Level 3.1 g/dL (3.4-5.0); Alkaline Phosphatase 73 U/L (46-116); Anion Gap 12 mmol/L (8-16); Aspartate Amino Transferase < 10 U/L (15-37); Bilirubin,Total 0.5 mg/dL (0.00-1.00); Blood Urea Nitrogen 20 mg/dL (7-18); Calcium 9.1 mg/dL (8.5-10.1); Carbon Dioxide 27 mmol/L (21-32); Chloride 105 mmol/L (98-108); Cholesterol 199 mg/dL (0-200); Estimated Glomerular Filt Rate > 60; Glucose 88 mg/dL (70-99); HDL Direct 63 mg/dL (40-60); LDL Cholesterol Calculated 118 mg/dL (<130); Osmolality Calculated 299 mOsm/kg (285-295); Potassium 3.9 mmol/L (3.5-5.1); Sodium 144 mmol/L (136-145); Total Protein 6.5 g/dL (6.4-8.2); Triglycerides 90 mg/dL (0-150)
== END 2023-08-13 09:19 | disposition home or self-care (01) ==
LOC: CHSLAB 09:19
PROVIDERS: PCP Internal Medicine; Visit Provider Internal Medicine
DX: R73.01 Impaired fasting glucose (principal); E78.2 Mixed hyperlipidemia
CPT/HCPCS: 36415; 80053; 80061; 83036

== ENCOUNTER 2024-01-31 07:39 | Outpatient (CLI) | payer OTHER, SELFPAY ==
[2024-01-31 07:58] LABS: Appearance Urine Clear (Clear); Bilirubin Urine Negative (Negative); Blood Urine Trace-intact (Negative); Color Urine Yellow (Yellow); Glucose Urine UA Negative (Negative); Ketones Urine Negative (Negative); Leukocyte Esterase Ur Trace (Negative); Nitrate Urine Negative (Negative); Protein Urine Negative (Negative); Specific Grav Ur 1.025 (1.010-1.020); Urobilinogen Urine 0.2 mg/dL (0.2-1.0)
[2024-01-31 08:26] LABS: Hemoglobin A1C 5.2 % (<5.7)
[2024-01-31 08:32] LABS: Add Urine Microscopic? YES; Bacteria Urine 2+ /hpf; Mucus Urine Moderate /lpf; RBC Urine 0-2 /hpf (0-2); Squamous Epithelial Cell Urine Moderate /hpf (Few); WBC Urine 0-5 /hpf (0-3)
[2024-01-31 09:06] LABS: Albumin Level 3.1 g/dL (3.4-5.0); Alkaline Phosphatase 61 U/L (46-116); Anion Gap 9 mmol/L (4-12); Aspartate Amino Transferase 11 U/L (15-37); Bilirubin,Total 0.5 mg/dL (0.00-1.00); Blood Urea Nitrogen 19 mg/dL (7-18); Calcium 8.9 mg/dL (8.5-10.1); Carbon Dioxide 30 mmol/L (21-32); Chloride 103 mmol/L (98-108); Cholesterol 221 mg/dL (0-200); Creatine Kinase 54 U/L (26-192); Estimated Glomerular Filt Rate > 60; Glucose 83 mg/dL (70-99); HDL Direct 66 mg/dL (40-60); LDL Cholesterol Calculated 129 mg/dL (<130); Osmolality Calculated 295 mOsm/kg (285-295); Sodium 142 mmol/L (136-145); Total Protein 6.6 g/dL (6.4-8.2); Triglycerides 132 mg/dL (0-150)
[2024-01-31 09:15] LABS: Alanine Aminotransferase 12 U/L (14-59)
== END 2024-01-31 07:40 | disposition home or self-care (01) ==
LOC: CHSLAB 07:40
PROVIDERS: PCP Internal Medicine; Visit Provider Internal Medicine
DX: I10 Essential (primary) hypertension (principal); E78.2 Mixed hyperlipidemia; R73.01 Impaired fasting glucose
CPT/HCPCS: 36415; 80053; 80061; 81001; 82550; 83036

== ENCOUNTER 2024-02-17 11:48 | Outpatient (CLI) | payer OTHER, SELFPAY ==
--- NOTE | ~2024-02-17 | MM_ITS ---
EXAMINATION: MM screening [facility] w [facility] HISTORY: Screening TECHNIQUE: Craniocaudal and mediolateral oblique 3-D tomosynthesis images were obtained and synthetic 2-D images were generated. CAD analysis was submitted and interpreted. COMPARISON: Comparison to multiple prior studies sequentially, with oldest reviewed study dated 02/07. BREAST PARENCHYMAL COMPOSITION: Not dense: There are scattered areas of fibroglandular density. FINDINGS: There is no evidence of suspicious mass, calcification, or architectural distortion to sugg est malignancy in either breast. There has been no suspicious interval change. IMPRESSION: 1. No mammographic evidence of malignancy. 2. Recommend routine screening mammography in one year. BI-RADS Category 1: Negative Reviewed, dictated and finalized at location B.
== END 2024-02-17 11:49 | disposition home or self-care (01) ==
LOC: CHSIMG 11:49
PROVIDERS: PCP Internal Medicine; Visit Provider Internal Medicine
DX: Z12.31 Encounter for screening mammogram for malignant neoplasm of breast (principal)
CPT/HCPCS: 77063; 77067

== ENCOUNTER 2024-07-15 01:46 | Emergency (ER) | payer OTHER, SELFPAY ==
[2024-07-15 01:47] VITALS: BP 153/89; PULSE 70; RESP 18; TEMP 36.3; O2SAT 96
--- NOTE | 2024-07-15 02:01 | ED.EAR ---
HPI - Ear Problem General Chief complaint: Ear Stated complaint: ear issues Time Seen by Provider: 07/15/24 01:53 Source: patient Mode of arrival: ambulatory Limitations: no limitations History of Present Illness HPI Narrative: this is 48-year-old female that presents with some right ear pressure with no drainage no discharge no fever chills no shortness of breath. Patient has been having sinus congestion and sinus pressure for the last 2 weeks. MD Complaint: ear pain Location: right ear Duration: constant Severity: moderate Relieving factors: nothing Related Data Home Medications Medication Instructions Recorded Confirmed norgestimate 0.18 mg/0.215 mg/0.25 1 tablet PO DAILY 03/30/21 07/15/24 mg-ethinyl estradiol 25 mcg tablet (Ewh-Ms-Yiwacbvn) losartan 100 mg tablet 100 mg PO DAILY 12/25/22 07/15/24 triamterene 37.5 1 tablet PO DAILY 12/25/22 07/15/24 mg-hydrochlorothiazide 25 mg tablet Allergies Allergy/AdvReac Type Severity Reaction Status Date / Time Penicillins Allergy Unknown Flushing Verified 07/15/24 02:01 Review of Systems Review of Systems: All systems reviewed & are unremarkable except as noted in HPI and below PMFSH Past Medical History Medical History Patient denies medical problems Exam Const: General: healthy appearing Nutritional Appearance: well nourished Orientation/consciousness: patient oriented x3 Limitations: no limitations HENMT: Other: frontal and maxillary sinus tenderness with palpation with some right ear dullness with of the tympanic membrane nasal turbinates inflamed and red bilaterally Eyes: Conjunctivae: conjunctivae normal Neck: Neck: normal visual inspection, no lymphadenopathy and no meningeal signs Chest: Chest palpation & inspection: normal inspection of the chest Resp: Effort & Inspection: normal respiratory effort Auscultation: clear to auscultation bilaterally Cardio: Rate: regular rate Rhythm: regular rhythm GI: GI Palp: Yes Soft to palpation Auscultation: normal bowel sounds Course Course Emergency Course: patient with some ear pain related to sinus infection will administer a dose of p.o. Zithromax and a g of Tylenol p.o.. Vital Signs Vital signs: Vital Signs Temperature 36.3 C L 07/15/24 01:47 Pulse Rate 70 07/15/24 01:47 Respiratory Rate 18 07/15/24 01:47 Blood Pressure 153/89 H 07/15/24 01:47 Pulse Oximetry 96 07/15/24 01:47 Oxygen Delivery Room Air 07/15/24 01:47 Temperature 36.3 C L 07/15/24 01:47 Pulse Rate 70 07/15/24 01:47 Respiratory Rate 18 07/15/24 01:47 Blood Pressure 153/89 H 07/15/24 01:47 Pulse Oximetry 96 07/15/24 01:47 Oxygen Delivery Room Air 07/15/24 01:47 Medical Decision Making Vital Signs Vital Signs: Vital Signs Temperature 36.3 C L 07/15/24 01:47 Pulse Rate 70 07/15/24 01:47 Respiratory Rate 18 07/15/24 01:47 Blood Pressure 153/89 H 07/15/24 01:47 Pulse Oximetry 96 07/15/24 01:47 Oxygen Delivery Room Air 07/15/24 01:47 Temperature 36.3 C L 07/15/24 01:47 Pulse Rate 70 07/15/24 01:47 Respiratory Rate 18 07/15/24 01:47 Blood Pressure 153/89 H 07/15/24 01:47 Pulse Oximetry 96 07/15/24 01:47 Oxygen Delivery Room Air 07/15/24 01:47 Critical Care Time Critical Care Time Critical Care Time: No Discharge Plan Discharge Clinical Impression: Sinusitis Qualifiers: Sinusitis location: frontal Chronicity: acute Recurrence: non-recurrent Qualified Code(s): J01.10 - Acute frontal sinusitis, unspecified Patient Disposition: Home, Self-Care Condition: Stable Instructions: Antibiotic Form, Sinusitis (ED) Additional Instructions: advised to take medicine as prescribed and follow-up with primary care physician if symptoms persist or worsen. and take [id number] Claritin or Zyrtec daily x2 weeks. Prescriptions: New azithromycin [Zithromax
[2024-07-15] MEDS: ACETAMINOPHEN 500 MG TABLET 1000 MG PO (02:08)
[2024-07-15] MEDS: AZITHROMYCIN 250 MG TABLET 500 MG PO (02:09)
== END 2024-07-15 02:21 | disposition home or self-care (01) ==
PROVIDERS: Emergency Provider Emergency Medicine; PCP Internal Medicine
DX: J01.10 Acute frontal sinusitis, unspecified (principal); Z79.899 Other long term (current) drug therapy
CPT/HCPCS: 99283; A9270

== ENCOUNTER 2024-07-16 07:09 | Outpatient (CLI) | payer OTHER, SELFPAY ==
[2024-07-16 07:32] LABS: Add Urine Microscopic? YES; Appearance Urine Sl Cloudy (Clear); Bilirubin Urine 1+ (Negative); Blood Urine Trace-intact (Negative); Color Urine Light Yellow (Yellow); Glucose Urine UA Negative (Negative); Ketones Urine Negative (Negative); Leukocyte Esterase Ur 1+ (Negative); Nitrate Urine Negative (Negative); Protein Urine Negative (Negative); Specific Grav Ur >= 1.030 (1.010-1.020); Urobilinogen Urine 0.2 mg/dL (0.2-1.0)
[2024-07-16 07:37] LABS: Bacteria Urine 1+ /hpf; RBC Urine 0-2 /hpf (0-2); Squamous Epithelial Cell Urine Moderate /hpf (Few)
[2024-07-16 07:49] LABS: Hemoglobin A1C 5.6 % (<5.7)
[2024-07-16 08:03] LABS: Alanine Aminotransferase 9 U/L (14-59); Alkaline Phosphatase 70 U/L (46-116); Anion Gap 6 mmol/L (4-12); Aspartate Amino Transferase < 10 U/L (15-37); Bilirubin,Total 0.5 mg/dL (0.00-1.00); Blood Urea Nitrogen 15 mg/dL (7-18); Calcium 9.1 mg/dL (8.5-10.1); Carbon Dioxide 32 mmol/L (21-32); Chloride 102 mmol/L (98-108); Cholesterol 224 mg/dL (0-200); Creatine Kinase 65 U/L (26-192); Estimated Glomerular Filt Rate > 60; Glucose 93 mg/dL (70-99); HDL Direct 69 mg/dL (40-60); LDL Cholesterol Calculated 132 mg/dL (<130); Osmolality Calculated 290 mOsm/kg (285-295); Potassium 4.5 mmol/L (3.5-5.1); Sodium 140 mmol/L (136-145); Total Protein 6.8 g/dL (6.4-8.2); Triglycerides 114 mg/dL (0-150)
== END 2024-07-16 07:10 | disposition home or self-care (01) ==
LOC: CHSLAB 07:11
PROVIDERS: PCP Internal Medicine; Visit Provider Internal Medicine
DX: I10 Essential (primary) hypertension (principal); E78.2 Mixed hyperlipidemia; R73.01 Impaired fasting glucose
CPT/HCPCS: 36415; 80053; 80061; 81001; 82550; 83036

== ENCOUNTER 2024-11-03 02:52 | Emergency (ER) | payer OTHER, SELFPAY ==
[2024-11-03 02:54] VITALS: BP 147/89; PULSE 83; RESP 18; TEMP 36.4; O2SAT 99
--- NOTE | 2024-11-03 02:56 | ED.EAR ---
HPI - Ear Problem General Chief complaint: Ear Stated complaint: ear pain Time Seen by Provider: 11/03/24 02:54 Source: patient Mode of arrival: ambulatory Limitations: no limitations History of Present Illness HPI Narrative: Patient is 48-year-old female with right ear pain this evening. It is going down the side of her neck below the ear. Complaint: ear pain ( Right) Location: right ear Duration: constant Severity: moderate Relieving factors: nothing Exacerbating factors: nothing Context: Reports other ( patient having right ear pain this evening and some nasal congestion) Discharge from ear: Reports no Associated symptoms ear: other ( none) Treatment prior to arrival: none Related Data Home Medications ?Medication ?Instructions ?Recorded ?Confirmed ?Last Taken ?Type norgestimate 0.18 mg/0.215 mg/0.25 1 tablet PO DAILY 03/30/21 07/15/24 Unknown History mg-ethinyl estradiol 25 mcg tablet (Dcr-My-Hdagwdwy) losartan 100 mg tablet 100 mg PO DAILY 12/25/22 07/15/24 Unknown History triamterene 37.5 1 tablet PO DAILY 12/25/22 07/15/24 Unknown History mg-hydrochlorothiazide 25 mg tablet Allergies Allergy/AdvReac Type Severity Reaction Status Date / Time Penicillins Allergy Unknown Flushing Verified 07/15/24 02:01 Review of Systems Review of Systems: All systems reviewed & are unremarkable except as noted in HPI and below Constitutional: Constitutional: Reports no additional constitutional complaints Eyes: Eyes: Reports no additional eye complaints ENT: Reports system reviewed and no additional complaints, except as documented Cardiovascular: Cardiovascular: Reports no additional cardiovascular complaints Respiratory: Respiratory: Reports no additional respiratory complaints Gastrointestinal: Gastrointestinal: Reports no additional gastrointestinal complaints Genitourinary: Genitourinary: Reports no additional female genitourinary complaints Musculoskeletal: Musculoskeletal: Reports no additional musculoskeletal complaints Integumentary/Breasts: Skin/Breast: Reports system reviewed and no additional complaints, except as docu Neurologic: Reports system reviewed and no additional complaints, except as documented Psychiatric: Psychiatric: Reports no additional psychiatric complaints Endocrine: Endocrine: Reports no additional endocrine complaints Hematologic/Lymphatic: Hematologic/Lymphatic: Reports no additional hematologic/lymphatic complaints Allergic/Immunologic: Allergic/Immunologic: Reports no additional allergic/immunologic complaints PMFSH Past Medical History Medical History Patient denies medical problems Exam Const: General: healthy appearing Nutritional Appearance: well nourished Orientation/consciousness: patient oriented x3 Limitations: no limitations HENMT: Head: normal to inspection Ears: external ears normal Face/Nose/Sinus: Normal external nose present Other: Left canal and tympanic membrane are normal; right canal is red and irritated and inflamed with excoriation with a normal TM Eyes: Conjunctivae: conjunctivae normal Pupils: Equal, round and reactive pupils present EOM: EOMs intact bilaterally Neck: Neck: normal visual inspection Chest: Chest palpation & inspection: normal inspection of the chest Resp: Effort & Inspection: normal respiratory effort and not labored Auscultation: clear to auscultation bilaterally and no crackles Cardio: Rate: regular rate Rhythm: regular rhythm Heart sounds: no murmurs GI: Inspection: non-distended GI Palp: Yes Soft to palpation and No Tenderness to palpation present (GI) Auscultation: normal bowel sounds : General: Yes bladder normal to palpation Back/Spine/Pelvis: Back: no CVA tenderness Skin: General skin exam: normal color Rashes: no rashes Wounds: no wounds Neuro: General: patient oriented x3 Cranial nerves: Yes Nystagmus not present Speech: normal speech Gait exam (Neuro): Normal gait present Extrem: General: normal to inspection Psych: Mental Status: mental status grossly normal Affect: normal affect Attitude: cooperative Course Vital Signs Vital signs: Vital Signs Temperature 36.4 C 11/03/24 02:54 Pulse Rate 83 11/03/24 02:54 Respiratory Rate 18 11/03/24 02:54 Blood Pressure 147/89 H 11/03/24 02:54 Pulse Oximetry 99 11/03/24 02:54 Oxygen Delivery Room Air 11/03/24 02:54 Temperature 36.4 C 11/03/24 02:54 Pulse Rate 83 11/03/24 02:54 Respiratory Rate 18 11/03/24 02:54 Blood Pressure 147/89 H 11/03/24 02:54 Pulse Oximetry 99 11/03/24 02:54 Oxygen Delivery Room Air 11/03/24 02:54 Medical Decision Making MDM Narrative Medical decision making narrative: patient is a 48-year-old female with right ear pain this evening. We will use Cortisporin otic. Vital Signs Vital Signs: Vital Signs Temperature 36.4 C 11/03/24 02:54 Pulse Rate 83 11/03/24 02:54 Respiratory Rate 18 11/03/24 02:54 Blood Pressure 147/89 H 11/03/24 02:54 Pulse Oximetry 99 11/03/24 02:54 Oxygen Delivery Room Air 11/03/24 02:54 Temperature 36.4 C 11/03/24 02:54 Pulse Rate 83 11/03/24 02:54 Respiratory Rate 18 11/03/24 02:54 Blood Pressure 147/89 H 11/03/24 02:54 Pulse Oximetry 99 11/03/24 02:54 Oxygen Delivery Room Air 11/03/24 02:54 Discharge Plan Discharge Clinical Impression: Otitis externa Qualifiers: Otitis externa type: diffuse Chronicity: acute Laterality: right Qualified Code(s): H60.311 - Diffuse otitis externa, right ear Patient Disposition: Home, Self-Care Condition: Stable Instructions: Antibiotic Form, Earache (ED) Patient Language: Djiboutian Prescriptions: New ftzgljvm-liqmbhtgu-GS 3.5-10,000-1 mg/mL-unit/mL-% drops,suspension 3 drp RIGHT EAR TID 7 Days Qty: 10 0RF No Action norgestimate-ethinyl estradiol [Cbg-Wp-Zedsvhbs] 0.18/0.215/0.25 mg-25 mcg tablet 1 tablet PO DAILY triamterene-hydrochlorothiazid 37.5-25 mg tablet 1 tablet PO DAILY losartan 100 mg tablet 100 mg PO DAILY prednisone 20 mg tablet 60 mg PO DAILY 6 Days Qty: 18 0RF pantoprazole [Protonix] [address] for susp in packet 40 mg PO DAILY 10 Days Qty: 10 0RF valacyclovir 1 gram tablet 1,000 mg PO Q8H 10 Days Qty: 30 0RF azithromycin [Zithromax Z-Stanislaw] 250 mg tablet See Rx Instructions .ROUTE .COMPLEX Qty: 6 0RF Rx Instructions: For 250 mg dose pack: take 500 mg today (day 1), then 250 mg for 4 days (days 2-5) fluticasone propionate [Flonase Allergy Relief] 50 mcg/actuation spray,suspension 2 spray intranasal DAILY Qty: 16 0RF Rx Instructions: administer into each nostril Follow-up/Referrals: Chan Daniel MD [Primary Care Provider] - Time of Disposition: 03:10
[2024-11-03] MEDS: NEOMYCIN/POLYMYXIN/HYDROCORT OT SUSP 10 ML BTL (*BKC) 3 DROP RIGHT EAR (03:21)
--- OUTSIDE RECORDS SUMMARY | 2024-11-10 03:48 | XMS_ITS | Clinical Summary ---
Author Organization [facility] Address [address] [place] [address] Care Team Providers Care Occupational Health Professional Name Role Phone Chan Daniel MD Primary Care Provider + [phone] Chan Daniel MD Unavailable [phone] Myrtle Rivas MD Unavailable [phone] China Gee MD PhD Unavailable + Allergies Active Allergy Reactions Criticality Noted Date Comments Penicillins Rash Medium 06/10/2022 Medications losartan (COZAAR) 100 mg tablet 05/13/2022 Active triamterene-hyd roCHLOROthiazid e 37.5-25 mg per tablet 05/13/2022 Active Yuo-Uv-Azkigqxz 0.18/0.215/0.25 mg-25 mcg per tablet 05/29/2022 Active potassium chloride ER 20 mEq CR tablet 05/04/2022 Activ e multivitamin capsule Take 1 capsule by mouth daily Active ACETAMINOPHEN ORAL Take by mouth Active Active Problems Problem Noted Date Diagnosed Date Neoplasm 07/27/2022 Immunizations Name Administration Dates Next Due DTP 04/02/1981,06/15/1977,05/01/1976 ,02/29/1976,1975 MMR 01/24/1992,12/17/1976 OPV 04/02/1981,06/15/1977,05/01/1976 ,02/29/1976,1975 Td, adsorbed 05/26/1990 Surgical History Surgery Date Site/Laterality Comments PERCUTANEOUS NEEDLE BIOPSY MUSCLE 08/09/2022 N/A Medical History Medical History Date Comments Hypertension Family History Medical History Relation Name Comments No Known Problems Brother Hypertension Father No Known Problems Maternal Grandfather No Known Problems Maternal Grandmother Hypertension Mother No Known Problems Paternal Grandfather No Known Problems Paternal Grandmother Relation Name Status Comments Brother Alive Father Alive Maternal Grandfather Maternal Grandmother Mother Alive Paternal Grandfather Paternal Grandmother Social History Tobacco Use Types Packs/Day Years Used Date Smoking Tobacco: Never Passive Smoke Exposure: Never Smokeless Tobacco: Never Tobacco Cessation:Counseling Given: Not Answered Personal Safety Answer Date Recorded Getting School Help Needed Not on file 01/14 Comments Unknown Sex and Gender Information Value Date Recorded Sex Assigned at Not on file Legal Sex Female 4:01 PM CDT Gender Identity Not on file Sexual Orientation Not on file Obstetrics History Last Filed Vital Signs Vital Sign Reading Time Taken Comments Blood Pressure 121/68 08/09/2022 3:00 PM CDT Pulse 66 08/09/2022 3:00 PM CDT Temperature 36.5 ??C (97.7 ??F) 08/09/2022 1:55 PM CD T Respiratory Rate 16 08/09/2022 3:00 PM CDT Oxygen Saturation 97% 08/09/2022 3:00 PM CDT Inhaled Oxygen Concentration - - Weight 116.1 kg (256 lb) 08/09/2022 12:25 PM CDT Height 162.6 cm (5' 4 ) 08/09/2022 12:25 PM CDT Body Mass Index 43.94 08/09/2022 12:25 PM CDT Plan of Treatment Health Maintenance Due Date Last Done Comments Breast Cancer Screening-Mammogram 1975 Cervical Cancer Screening 1975 Colon Cancer Screening-Colonoscopy 1975 Depression Screening 1975 Hepatitis C Screening 1975 DTaP/Tdap/Td Vaccine (6 - Tdap) 05/27/1990 05/26/1990, 04/02/1981, 06/15/1977, Additional history exists Hepatitis B Screening 1993 Regular Well Visit/Exam 18-64 1993 Covid-19 Vaccine (4 - 2024-25 season) 2024 04/16/2022, 04/28/2021, 04/07/2021 Influenza Vaccine (#1) 2024 Pneumococcal vaccine <65 Aged Out No longer eligible based on patient's age to complete this topic Insurance [facility] Care Teams Occupational Health Professional Relationship Specialty Start Date End Date Chan Daniel MD [address] [place] [address] PCP - General Internal Medicine 04/30/22 Chan Daniel MD [address] [place] [address] Referring Physician Internal Medicine 04/30/22 Myrtle Rivas MD [address] [facility] [address] [place] [address] Referring Physician Plastic Surgery 07/14/22 China Gee MD PhD [address] [facility] DIV IM MEDICAL ONCOLOGY, [address]A, [address], [address] [place] [address] Medical Oncologist/Buttonhole Maker Medical Oncology 07/14/22
--- OUTSIDE RECORDS SUMMARY | 2024-11-10 03:48 | XMS_ITS | Encounter Summary ---
Author Organization [facility] Address [address] [place] [address]. [place] [address] [place] [address] Care Team Providers Care Quality Controller Name Role Phone Unavailable Primary Care Provider Unavailabl e Encounter Details Date Type Department Care Team (Late st Contact Info) Description 11/23/2013 [facility] [address] [place] [address] , Raven Garza MD Social History Tobacco Use Types Packs/Day Years Used Date Smoking Tobacco: Never Assessed Comments Unknown Sex and Gender Information Value Date Recorded Sex Assigned at Not on file Legal Sex Female 4:46 PM CDT Gender Identity Not on file Sexual Orientation Not on file documented as of this encounter Plan of Treatment Not on file documented as of this encounter Visit Diagnoses Not on filedocumented in this encounter
--- OUTSIDE RECORDS SUMMARY | 2024-11-10 03:48 | XMS_ITS | Referral Summary ---
Author Organization [facility] Address [address] [place] [address] Care Team Providers Care Tie Mill Operator Name Role Phone Chan Daniel MD Primary Care Provider + [phone] Chan Daniel MD Unavailable [phone] Myrtle Rivas MD Unavailable [phone] China Gee MD PhD Unavailable + Allergies Active Allergy Reactions Criticality Noted Date Comments Penicillins Rash Medium 06/10/2022 Medications losartan (COZAAR) 100 mg tablet 05/13/2022 Active triamterene-hyd roCHLOROthiazid e 37.5-25 mg per tablet 05/13/2022 Active Hse-Vp-Vvlwotat 0.18/0.215/0.25 mg-25 mcg per tablet 05/29/2022 Active potassium chloride ER 20 mEq CR tablet 05/04/2022 Activ e multivitamin capsule Take 1 capsule by mouth daily Active ACETAMINOPHEN ORAL Take by mouth Active Active Problems Problem Noted Date Diagnosed Date Neoplasm 07/27/2022 Immunizations Name Administration Dates Next Due DTP 04/02/1981,06/15/1977,05/01/1976 ,02/29/1976,1975 MMR 01/24/1992,12/17/1976 OPV 04/02/1981,06/15/1977,05/01/1976 ,02/29/1976,1975 Td, adsorbed 05/26/1990 Social History Tobacco Use Types Packs/Day Years [...] on file Sexual Orientation Not on file Last Filed Vital Signs Vital Sign Reading [...] 08/09/2022 12:25 PM CDT Plan of Treatment Not on file Insurance [facility] Care Teams Tie Mill Operator Relationship Specialty Start Date End Date Chan Daniel MD [address] [place] [address] PCP - General Internal Medicine 04/30/22 Chan Daniel MD [address] [place] [address] Referring Physician Internal Medicine 04/30/22 Myrtle Rivas MD [address] [place] [address] Referring Physician Plastic Surgery 07/14/22 China Gee MD PhD [address] DIV IM MEDICAL ONCOLOGY, [address] [place] [address] Medical Oncologist/Bunghole Borer Medical Oncology 07/14/22
--- OUTSIDE RECORDS SUMMARY | 2024-11-10 03:48 | XMS_ITS | Encounter Summary ---
Author Organization [facility] Address [address] [place] [address] Phone Care Team Providers Care Immunochemist Name Role Phone Chan Danile MD Primary Care Provider + [phone] Chan Daniel MD Unavailable [phone] Myrtle Rivas MD Unavailable [phone] China Gee MD PhD Unavailable + Encounter Details Date Type Department Care Team (Late st Contact Info) Description 08/11/2022 Telephone [facility] On[facility] [address] [facility] 7th [place] [address] [place] [address] Rosamaria Mann RMA Social History Tobacco Use Types Packs/Day Years Used Date Smoking Tobacco: Never Passive Smoke Exposure: Never Smokeless Tobacco: Never Comments Unknown Sex and Gender Information Value Date Recorded Sex Assigned at Not on file Legal Sex Female 4:01 PM CDT Gender Identity Not on file Sexual Orientation Not on file documented as of this encounter Miscellaneous Notes * Telephone Encounter - Rosamaria Mann RMA - 08/11/2022 10:42 AM CDT Pt. Cancel the previously scheduled PET Scan... I called to see if she would like to tito., no answer and the call was routed to vm. I left a vm with a call back number if she'd like to tito. And/or required any addtl assistance. documented in this encounter Plan of Treatment Not on file documented as of this encounter Visit Diagnoses Not on filedocumented in this encounter Care Teams Immunochemist Relationship Specialty Start Date End Date Chan Daniel MD [address] [place] [address] PCP - General Internal Medicine 04/30/22 Chan Daniel MD [address] [place] [address] Referring Physician Internal Medicine 04/30/22 Myrtle Rivas MD [address] [facility] [address] [place] [address] Referring Physician Plastic Surgery 07/14/22 China Gee MD PhD [address] [facility] DIV IM MEDICAL ONCOLOGY, [address] [place] [address] Medical Oncologist/Print Color Operator Medical Oncology 07/14/22 documented as of this encounter
--- OUTSIDE RECORDS SUMMARY | 2024-11-10 03:48 | XMS_ITS | Encounter Summary ---
Author Organization [facility] Address [address] [place] [address] [place] [address] Phone Care Team Providers Care Scalping Machine Operator Name Role Phone Chan Daniel MD Primary Care Provider + [phone] Chan Daniel MD Unavailable [phone] Myrtle Rivas MD Unavailable [phone] China Gee MD PhD Unavailable + Encounter Details Date Type Department Care Team (Late st Contact Info) Description 08/17/2022 Orders Only [facility] Oncology [address] [facility] Advanced Medicine 7th [place] [address] [place] [address] Jose Armando Carrillo, JASPREET [address] [place] [address] Benign schwannoma (Primary Dx) Social History Tobacco Use Types Packs/Day Years [...] documented as of this encounter Visit Diagnoses Diagnosis Benign schwannoma- Primary documented in this encounter Care Teams Scalping Machine Operator Relationship Specialty Start Date End Date Chan Daniel MD [address] [place] [address] PCP - General Internal Medicine 04/30/22 Chan Daniel MD [address] [place] [address] Referring Physician Internal Medicine 04/30/22 Myrtle Rivas MD [address] [facility] [address] [place] [address] Referring Physician Plastic Surgery 07/14/22 China Gee MD PhD [address] [facility] [address] DIV IM MEDICAL ONCOLOGY, [address] [place] [address] Medical Oncologist/Call Center Specialist Medical Oncology 07/14/22 documented as of this encounter
--- OUTSIDE RECORDS SUMMARY | 2024-11-10 03:48 | XMS_ITS | Clinical Summary ---
Author Organization [facility] Address [address] [place] [address]. [place], [place] [address] [place] [address] Care Team Providers Care Wheel Worker Name Role Phone Unavailable Primary Care Provider Unavailabl e Social History Tobacco Use Types Packs/Day Years Used Date Smoking Tobacco: Never Assessed Comments Unknown Sex and Gender Information Value Date Recorded Sex Assigned at Not on file Legal Sex Female 4:46 PM CDT Gender Identity Not on file Sexual Orientation Not on file Plan of Treatment Health Maintenance Due Date Last Done Comments Cervical Cancer Screening Pa p Smear (Age 30 to 64) Every 3 Years 1975 Colorectal Cancer Screening Colonoscopy (10 Years) 1975 Annual Physical 1978 Hepatitis C 1993 DTaP, Tdap and Td Vaccines ( 1 - Tdap) 1994 Hepatitis B Vaccines (1 of 3 - 19+ 3-dose series) 1994 Cervical Cancer Screening Pa p with HPV Testing (Age 30 to 64) Every 5 Years 2005 Cervical Cancer Screening with HPV 2005 Mammogram Screening 2015 COVID-19 Vaccine (2023-2 5 season) 2024 Influenza Adult (#1) 2024 Meningococcal Vaccine Aged Out No joaquin loretta eligible based on patient's age to complete this topic Pneumococcal Vaccine: Pediat rics (0 to 5 Years) and At-Risk Patients (6 to 64 Years) Aged Out No longer eligible b ased on patient's age to complete this topic RSV Immunizations Under 20 Months Aged Out No longer eligible based on patient's age to complete this topic
--- OUTSIDE RECORDS SUMMARY | 2024-11-10 03:48 | XMS_ITS | Encounter Summary ---
Author Organization [facility] Address [address] [place] [address] Phone Care Team Providers Care Corporate Planning Manager Name Role Phone Chan Daniel MD Primary Care Provider + [phone] Chan Daniel MD Unavailable [phone] Myrtle Rivas MD Unavailable [phone] China Gee MD PhD Unavailable + Encounter Details Date Type Department Care Team (Late st Contact Info) Description 08/17/2022 Telephone [facility] Oncology [address] [facility] Advanced Medicine 7th [place] [address] [place] [address] Jose Armando Carrillo NP [address] [place] [address] Social History Tobacco Use Types Packs/Day Years Used Date Smoking Tobacco: Never Passive Smoke Exposure: Never Smokeless Tobacco: Never Comments Unknown Sex and Gender Information Value Date Recorded Sex Assigned at Not on file Legal Sex Female 4:01 PM CDT Gender Identity Not on file Sexual Orientation Not on file documented as of this encounter Miscellaneous Notes * Telephone Encounter - Jose Armando Carrillo NP - 08/17/2022 4:04 PM CDT I spoke with the patient and let her know that we had our tumor board discussion and we reviewed pathology and mri scans- the mass is a benign schwannoma. For follow up and surveillance- We can image once a year. Let the patient know she doesn't need to do anything unless it grows or becomes painful, then she should getevaluated by Dr. Rivas. We will cancel her upcoming in person follow up and reschedule to a year from now with repeat imaging with MRI knee right. Patient in agreement. Jose Armando Carrillo, MSN, WAGE ANALYST, AGNP-C Nurse Practitioner, Medical Oncology [facility] documented in this encounter Plan of Treatment Not on file documented as of this encounter Visit Diagnoses Not on filedocumented in this encounter Care Teams Corporate Planning Manager Relationship Specialty Start Date End Date Chan Daniel MD [address] [place] [address] PCP - General Internal Medicine 04/30/22 Chan Daniel MD [address] [place] [address] Referring Physician Internal Medicine 04/30/22 Myrtle Rivas MD [address] [facility] [address] [place] [address] Referring Physician Plastic Surgery 07/14/22 China Gee MD PhD [address] [facility] [address] DIV IM MEDICAL ONCOLOGY, [address] [place] [address] Medical Oncologist/Mixing Plant Operator Medical Oncology 07/14/22 documented as of this encounter
--- OUTSIDE RECORDS SUMMARY | 2024-11-10 03:48 | XMS_ITS | Encounter Summary ---
Author Organization [facility] Address [address] [place] [address]. [place] [address] [place] [address] Care Team Providers Care Caddie Name Role Phone Unavailable Primary Care Provider Unavailabl e Encounter Details Date Type Department Care Team (Late st Contact Info) Description 11/23/2013 [facility] [address] [place] [address] , Raven Garza MD Social History Tobacco [...]
--- OUTSIDE RECORDS SUMMARY | 2024-11-10 03:49 | XMS_ITS | Encounter Summary ---
Author Organization [facility] Healthcare Address [address] [place] [address] Care Team Providers Care Hospice Admitting Clerk Name Role Phone Chan Daniel MD Primary Care Provider [phone] Chan Daniel MD Unavailable [phone] Myrtle Rivas MD Unavailable [phone] China Gee MD PhD Unavailable + Reason for Referral * Diagnostic Imaging (Routine) - Closed Specialty Diagnoses / Procedures Referred By Contac t Referred To Contact Radiology Diagnoses Neoplasm Procedures IR Biopsy Soft Tissue Mass Consult to Musculoskeletal Interventional Radiology China Gee MD PhD [address] MEDICAL ONCOLOGY, [address] [place] [address] Phone: tel: fax: [facility] [address] [place] [address] Referral ID Status Reason Start Date Expiration Date Visits Re quested Visits Authorized [id number] Closed 07/27/2022 08/26/2023 1 1 Reason for Visit * Diagnostic Imaging (Routine) - Closed Specialty Diagnoses / Procedures Referred By Contac t Referred To Contact Radiology Diagnoses Neoplasm Procedures IR Biopsy Soft Tissue Mass Consult to Musculoskeletal Interventional Radiology China Gee MD PhD [id number] [facility] [address] IM MEDICAL ONCOLOGY, [address] [place] [address] Phone: tel: fax: [facility] [address] [place] [address] Referral ID Status Reason Start Date Expiration Date Visits Re quested Visits Authorized [id number] Closed 07/27/2022 08/26/2023 1 1 Encounter Details Date Type Department Care Team (Late st Contact Info) Description 08/09/2022 11:36 AM CDT - 08/09/2022 11:59 PM CDT Hospital Encounter [facility] Radiology [address] [place], [place] [id number] Gold Thorpe MD PhD [address] [facility] [address] [place], [place] [id number] Neoplasm Discharge Disposition: Discharge to home or self care Social History Tobacco Use Types Packs/Day Years Used Date Smoking Tobacco: Never Passive Smoke Exposure: Never Smokeless Tobacco: Never Comments Unknown Sex and Gender Information Value Date Recorded Sex Assigned at Not on file Legal Sex Female 4:01 PM CDT Gender Identity Not on file Sexual Orientation Not on file documented as of this encounter Last Filed Vital Signs Vital Sign Reading [...] Mass Index 43.94 08/09/2022 12:25 PM CDT documented in this encounter Discharge Instructions * Discharge Instructions* Ronny Torres MD - 08/09/2022 1:57 PM CDT .[facility] Radiology Outpatient Discharge Instructions/Note Diagnosis: The encounter diagnosis was Neoplasm. Procedure:IR BIOPSY SOFT TISSUE MASS Limitations: [] No lifting greater than 5 pounds with [] Right [] Left arm for 7 days. [x] Light physical activity for 48 hours (2 days). [x] Do not lift more than 10 pounds for 48 hours (2 days). [x] You received medication that may affect your judgement. Stay with a responsible person today. Do not drive, operate machinery, make any legal or important decisions, or drink alcohol until tomorrow. No smoking unless another adult is present. Other Diet: You may resume your previous diet. Medication: [x] Usual medications; check with your regular doctor for any questions. Do not take any new pain medicine, sleeping pills or sedatives unless approved by your doctor. [] Prescriptions given for: [] Blood thinners: If you take aspirin 81mg or 325mg, you may resume the same day of biopsy. If you take warfarin (Coumadin), you may resume 12 hours after biopsy. If you take clopidogrel (Plavix), you may resume the same day of biopsy. If you take ticlopidine (Ticlid), you may resume 24 hours after biopsy. If you take enoxaparin (Lovenox): 30-40 mg every day or BID for prophylaxis, you may resume 6 hours after biopsy. >40 mg for therapy, you may resume 24 hours after biopsy. If you take rivaroxaban (Xalrelto), you may resume 48 hours after biopsy. If you take apixaban (Eliquis), you may resume 48 hours after biopsy. You may resume all other medications the same day of biopsy. Procedure Site Care: [] teaching sheet given [x] Skin glue was used to close your incision. See below. [] The bandage or dressing that was placed on the biopsy site may be removed the next day. [x] Keep site clean and dry. [x] You may bathe or shower tomorrow. [x] Do not submerge in bath, pool, or hot tubs. [] Change the dressing daily and if it becomes wet or dirty. [] Cover entire area with plastic and tape down edges before showering to keep site clean and dry. Results: [x] The biopsy will be read within 5-7 days. Special studies may take longer. Please allow at leasta week before calling for results. Follow up care: [] Follow up with [facility] Radiology in 1 week with XRs on same day, prior to appointment. Nurse Coordinators will call to schedule the appointment. Please come to: [] 3rd Floor [facility] [] 10th floor [facility] [] [facility] [] [facility] To contact an [facility] Radiology at [facility] or [facility] call [phone] Tuesday through Tuesday from 7:30am-4:30pm. After hours emergencies, please contact: [phone]. Questions: During regular office hours, call your referring physician. Special instructions: Please call [facility] Radiology for any procedure related questions or problems including: Extreme swelling or bruising at the site. Unusual drainage or bleeding from procedure site. Fever of 101.5 F for more than 24 hours. Procedure related pain. If vomiting occurs more than 3 times, contact the front loader residential driver personal shopper at [phone] within 24 hours after surgery. Contact your primary care physician 24 hours after surgery. For emergencies, go to the closest emergency room if you have any of the following: SEVERE PAIN WEAKNESS OR FAINTNESS SHORTNESS OF BREATH OR CHEST PAIN Skin Adhesive Care WHAT YOU NEED TO KNOW: Skin adhesive is medical glue used to close wounds. It is a substitute for gustavo and stitches. Skin adhesive wound closures take less time and do not require anesthesia. You have less pain and a lower risk of infection than with gustavo or stitches. Skin adhesive will fall off after the wound is healed. DISCHARGE INSTRUCTIONS: Self-care: Keep your wound clean and dry for 1 to 5 days. You can shower 24 hours after the skin adhesive is applied. Lightly pat your wound dry after you shower. Do not soak your wound in water, such as in a bath or hot tub. Do not scrub your wound or pick at the adhesive. This can make your wound reopen. Do not apply ointments to your wound. These include antibiotic and other ointments that contain petroleum jelly. These products will remove skin adhesive and reopen your wound. documented in this encounter Medications at Time of Discharge ACETAMINOPHEN ORAL Take by mouth losartan (COZAAR) 100 mg tablet 05/13/2022 multivitamin capsule Take 1 capsule by mouth daily potassium chloride ER 20 mEq CR tablet 05/04/2022 Zan-Ud-Xzkfmggr 0.18/0.215/0.25 mg-25 mcg per tablet 05/29/2022 triamterene-hydro CHLOROthiazide 37.5-25 mg per tablet 05/13/2022 documented as of this encounter Discharge Disposition Disposition Code Departure Means Destination Discharge to home or self care documented in this encounter Miscellaneous Notes * Post-Procedure Note - Ronny Torres MD - 08/09/2022 1:00 PM CDT Radiology Brief Post Procedure Note Attending: Gold Thorpe Entry Level Mechanical Engineer: Rnony Torres Sedation/Anesthesia: Min Sedation Pre-Op/Pre-Procedure Diagnosis: Right popliteal mass Post-Op/Post-Procedure Diagnosis: Same Procedure Performed: Right popliteal mass biopsy Procedure Findings: See dictation Complications: None Estimated Blood Loss: < 30 ml Specimens: three 2cm cores Condition: Stable Full report to follow. * Pre-Procedure Note - Ronny Torres MD - 08/09/2022 1:00 PM CDT Radiology Short Sedation Form Indication: Right popliteal mass Planned Procedure: Right popliteal mass biopsy Planned Sedation/Anesthesia: minimal sedation History of Sedation/ Anesthesia: No See H&P dated 07/27/22 for details of history, review of systems, physical exam, labs, imaging data and assessment. Changes in patient condition since prior assessment: none Most Recent Vitals: Vitals: 08/09/22 1225 BP: 157/63 Pulse: 82 Resp: 18 Temp: 36.5 ??C (97.7 ??F) SpO2: 98% Airway assessment: normal ASA Score: ASA 3 - Patient with moderate systemic disease with functional limitations NPO time: 5 AM Benefits, risks and alternatives of procedure and planned sedation have been discussed with the patient and/or their customer counter representative. All questions answered and they agree to proceed. documented in this encounter Plan of Treatment Not on file documented as of this encounter Procedures Procedure Name Priority Date/Time Associated Diagnosis Comments PERCUTANEOUS NEEDLE BIOPSY MUSCLE Schedule Routine, Read Routine (OP Routine) 08/09/2022 1:45 PM CDT Neoplasm SURGICAL PATHOLOGY Routine 08/09/2022 1: 40 PM CDT Neoplasm documented in this encounter Results * IR Biopsy Soft Tissue Mass (08/09/2022 1:45 PM CDT) Anatomical Region Laterality Modality Body N/A Radio Fluoroscop y 08/09/2022 2:04 PM CDT Impressions 08/09/2022 3:23 PM CDT 1. ??Right popliteal soft tissue mass biopsy under ultrasound guidance. ??The soft tissue core specimens were sent to surgical pathology. ?? Dictated by: Ronny Torres M.D. The radiology attending physician has personally reviewed this study, and had reviewed and/or edited this written report and agrees with it. Electronically signed by: Gold Thorpe MD, PHD Narrative 08/09/2022 3:23 PM CDT EXAMINATION: ??Right popliteal mass biopsy under ultrasound guidance HISTORY: Right popliteal mass on MRI. ATTENDING PRESENCE: Dr. Gold Thorpe MD, PHD, the attending radiologist, was present from the beginning to the end of the procedure. SEDATION: Conscious sedation was administered under the attending physician's direction and continuous monitoring by a trained nurse specialist who was independent from those actually performing the procedure. ??Total monitored sedation time was 14 minutes. During the course of the procedure, the patient received Fentanyl 100 mcg and Versed 2 mg IV. TECHNIQUE: ??The risks, benefits and alternatives were discussed and informed consent was obtained. ??Prior to beginning the procedure, Epworth Protocol was performed to confirm the patient's identity and the planned procedure. Sterile barriers used during the procedure included cap, mask, hand hygiene, sterile gloves, sterile gown and a sterile drape. Chloraprep was used for cutaneous antisepsis. The patient was placed prone on the stretcher. ??The biopsy site was localized with ultrasound. 10 mL of a 1:1 mixture of 0.25% bupivacaine and 1% lidocaine was injected for subcutaneous and deep anesthesia. ?? A 13/14 gauge Achieve needle was inserted into the biopsy site utilizing ultrasound guidance. Appropriate needle position was confirmed with ultrasound. ??3 core specimens of 2 cm in length was/were obtained. The biopsy was very painful for the patient and no further attempts were made after the third biopsy. The needle was removed and the skin was cleansed with hydrogen peroxide. Dermabond was placed at the needle entry site. Complication: None ?? ESTIMATED BLOOD LOSS: <30mL CONDITION: Stable condition. DISCHARGED TO: Home FINDINGS: ??Ultrasound demonstrated a rounded circumscribed hypoechoic soft tissue mass in the right popliteal region without internal vascular flow. ??This was successfully biopsied under ultrasound guidance. Procedure Note Gold Thorpe MD PhD - 08/09/2022 EXAMINATION: Right popliteal mass biopsy under ultrasound guidance HISTORY: Right popliteal mass on MRI. ATTENDING PRESENCE: Dr. Gold Thorpe MD, PHD, the attending radiologist, was present from the beginning to the end of the procedure. SEDATION: Conscious sedation was administered under the attending physician's direction and continuous monitoring by a trained nurse specialist who was independent from those actually performing the procedure. Total monitored sedation time was 14 minutes. During the course of the procedure, the patient received Fentanyl 100 mcg and Versed 2 mg IV. TECHNIQUE: The risks, benefits and alternatives were discussed and informed consent was obtained. Prior to beginning the procedure, Epworth Protocol was performed to confirm the patient's identity and the planned procedure. Sterile barriers used during the procedure included cap, mask, hand hygiene, sterile gloves, sterile gown and a sterile drape. Chloraprep was used for cutaneous antisepsis. The patient was placed prone on the stretcher. The biopsy site was localized with ultrasound. 10 mL of a 1:1 mixture of 0.25% bupivacaine and 1% lidocaine was injected for subcutaneous and deep anesthesia. A 13/14 gauge Achieve needle was inserted into the biopsy site utilizing ultrasound guidance. Appropriate needle position was confirmed with ultrasound. 3 core specimens of 2 cm in length was/were obtained. The biopsy was very painful for the patient and no further attempts were made after the third biopsy. The needle was removed and the skin was cleansed with hydrogen peroxide. Dermabond was placed at the needle entry site. Complication: None ESTIMATED BLOOD LOSS: <30mL CONDITION: Stable condition. DISCHARGED TO: Home FINDINGS: Ultrasound demonstrated a rounded circumscribed hypoechoic soft tissue mass in the right popliteal region without internal vascular flow. This was successfully biopsied under ultrasound guidance. IMPRESSION: 1. Right popliteal soft tissue mass biopsy under ultrasound guidance. The soft tissue core specimens were sent to surgical pathology. Dictated by: Ronny Torres M.D. The radiology attending physician has personally reviewed this study, and had reviewed and/or edited this written report and agrees with it. Electronically signed by: Gold Thorpe MD, PHD China Gee MD PhD IMG IR PROCEDURES Final Result * Surgical pathology (08/09/2022 1:40 PM CDT) Tissue (Soft tissue biopsy) 08/09/2022 1:40 PM CDT Comment:Right Knee Soft Tiss ue Mass Biopsy Narrative PATHOLOGY [facility] - 08/12/2022 2:12 PM CDT EPIC results best viewed via link to PDF [facility] [place] [address] [place] [address] Note to Patients: This report may contain a detailed description of human tissue sent by a health care provider to the laboratory for pathologic evaluation. The content of this report is essential for diagnosis and may provide important critical findings. This information may be unfamiliar to patients to review without a medical professional present. It is advised that the patient review this report in the presence of a health care provider who can answer questions and explain the details. SURGICAL PATHOLOGY REPORT FINAL Patient Name: ?? DARYN THACKER Gender: ??F : ??1975 (Age: 46) Address: ??[address] [place] [address] ??[id number] Hospital #: ??[id number] Taken:08/09/2022 Received:08/09/2022 Reported: 08/12/2022 Patient Type: [facility] Ancillary ?? Service: Laboratory Location: Physician(s): ??Gold Thorpe M.D. China Gee M.D. Chan Daniel M.D. Diagnosis: A. Soft tissue, right knee, biopsy ? - Schwannoma (see comment) toa08/12/2022 12:40 By this signature, I attest that the above diagnosis is based upon my personal examination of the slides(and/or other material indicated in the diagnosis). Phil Aguilar M.D. Report Electronically Reviewed and Signed Out By ??Phil Aguilar M.D. 08/12/2022 14:12:10 Microscopic Description and Comment: Immunohistochemical stains (single antibody procedures, with appropriate controls) for SOX10, S100, vimentin and collagen IV for were performed. ??The lesional cells stain positive for SOX10, S100, vimentin and collagen IV. ??This staining pattern confirms the diagnosis of a schwannoma. ??Microscopic examination substantiates the above cited diagnosis. Mary Ragland M.D. History: The patient is a 46-year-old woman presenting with neoplasm. ??Operative procedure: ??Knee soft tissue mass biopsy. Specimen(s) Received: A: Right knee soft tissue mass biopsy Gross Description: Received in formalin, labeled with the patient? ? s identifiers and right knee soft tissue mass biopsy and consists of four jackson cores of soft tissue with attached hemorrhagic material measuring 0.7-1.3 cm each in length x 0.2 cm in diameter. ??Labeled A1-A2. Jar 0. ?? sxst/08/10/2022 12:11 PA(s): Leslie Mondragon By this signature, I attest that the above diagnosis is based upon my personal examination of the slides(and/or other material). Addenda/Procedures The performance characteristics of some immunohistochemical stains, fluorescence in-situ hybridization tests and immunophenotyping by flow cytometry cited in this report (if any) were determined by the Surgical Pathology and Flow Cytometry Departments at [facility] as part of an ongoing quality control projectionist program and in compliance with federally mandated regulations drawn from the Clinical Laboratory Improvement Act of 1988 (CLIA '88). ??Some of these tests rely on the use of analyte specific reagents and are subject to specific labeling requirements by the US Food and Drug Administration. ??Such diagnostic tests may only be performed in a facility that is certified by the Department of Health and Human Services as a high complexity laboratory under CLIA '88. ??The FDA has determined that such clearance or approval is not necessary. ??This test is used for clinical purposes. ??It should not be regarded as investigational or for research. ??Nevertheless, federal rules concerning the medical use of analyte specific reagents require that the following disclaimer be attached to the report: This test was developed and its performance characteristics determined by the Surgical Pathology and Flow Cytometry Departments of [facility]. ??It has not been cleared or approved by the U. S. Food and Drug Administration. IMAGES AND SCANNED DOCUMENTS, IF INCLUDED, ONLY VIEWABLE IN PDF VERSION OF REPORT China Gee MD PhD LAB PATHOLOGY [facility] Final Result PATHOLOGY [facility] 3rd Floor [place], [place] [phone] documented in this encounter Visit Diagnoses Diagnosis Neoplasm Neoplasm of unspecified nature, site unspecified documented in this encounter Administered Medications Inactive Administered Medications - up to 3 most recent administrations Medication Order MAR Action Action Date Dose Rate Site fentaNYL (SUBLIMAZE) preservative free injection intravenous, Code/trauma/sedation medication, Starting on Tue08/09/22 at 1334 Given 08/09/2022 1:38 PM CDT 50 mcg Given 08/09/2022 1:34 PM CDT 50 mcg lidocaine (XYLOCAINE) 10 mg/mL (1 %) injection Code/trauma/sedation medication, Starting on Tue08/09/22 at 1335, Intra-Procedure (IR), Indications: Administration of Local AnesthesiaIndications:Administration of Local Anesthesia Given 08/09/2022 1:35 PM CDT 1 mL midazolam (VERSED) 1 mg/mL preservative free injection intravenous, Administer over 2 Minutes, Code/trauma/sedation medication, Starting on 08/09/22 at 1331, Intra-Procedure (IR) Given 08/09/2022 1:38 PM CDT 1 mg Given 08/09/2022 1:31 PM CDT 1 mg documented in this encounter Orders Diet Count Last Ordered Date First Orde red Date ADULT DISCHARGE DIET 1 08/09/2022 Nursing Count Last Ordered Date First Orde red Date DISCHARGE ACTIVITY 3 08/09/2022 DISCHARGE CALL PROVIDER 1 08/09/2022 DISCHARGE DRESSING 1 08/09/2022 OTHER FOLLOW UP 1 08/09/2022 Discharge Count Last Ordered Date First Orde red Date DISCHARGE PATIENT 1 08/09/2022 documented in this encounter Care Teams Hospice Admitting Clerk Relationship Specialty Start Date End Date Chan Daniel MD [address] [place] [address] PCP - General Internal Medicine 04/30/22 Chan Daniel MD [address] [place] [address] Referring Physician Internal Medicine 04/30/22 Myrtle Rivas MD [address] [place] [address] Referring Physician Plastic Surgery 07/14/22 China Gee MD PhD [address] DIV IM MEDICAL ONCOLOGY, [address] [place] [address] Medical Oncologist/Underliner Medical Oncology 07/14/22 documented as of this encounter
--- OUTSIDE RECORDS SUMMARY | 2024-11-10 03:49 | XMS_ITS | Encounter Summary ---
Author Organization [facility] Address [address] [place] [address] Phone Care Team Providers Care Long Chain Dyeing Machine Operator Name Role Phone Chan Daniel MD Primary Care Provider [phone] Chan Daniel MD Unavailable [phone] Reason for Visit * Consultation (Routine) - Closed Specialty Diagnoses / Procedures Referred By Contac t Referred To Contact Plastic Surgery Diagnoses Neoplasm Chan Daniel MD [address] [place] [address] Phone: tel: fax: [facility] (All Locations) Referral ID Status Reason Start Date Expiration Date V isits Requested Visits Authorized [id number] Closed Specialty Services Required 04/30/2022 05/30/2023 99 99 Encounter Details Date Type Department Care Team (Late st Contact Info) Description 06/10/2022 12:45 PM CDT Office Visit [facility] Surgery [address] [facility] Advanced [facility] 6th [place] [address] [place] [address] Myrtle Rivas MD [address] [place] [address] Neoplasm Social History Tobacco Use Types Packs/Day Years Used Date Smoking Tobacco: Never Comments Unknown Sex and Gender Information Value Date Recorded Sex Assigned at Not on file Legal Sex Female 4:01 PM CDT Gender Identity Not on file Sexual Orientation Not on file documented as of this encounter Progress Notes * Myrtle Rivas MD - 06/10/2022 12:45 PM CDT Images from the original note were not included. PLASTIC NEW PATIENT NOTE Patient: Mirna Thacker : 1975 Date of Service: 06/10/2022 PCP: Chan Daniel MD Referring Provider: Chan Daniel MD DATE OF VISIT: 06/10/2022 Dear Chan Daniel MD, thank you for requesting me to see Mirna Thacker for RIGHT knee mass CHIEF COMPLAINT: RIGHT knee mass HISTORY OF PRESENT ILLNESS: Mirna Thacker is a 46 y.o. female with progressive swelling to RIGHT posterior knee x 2 months. 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 She currently has intermittent 4/10 pain that shoots down to her foot and this R LE issue is having a 10% negative impact on her quality of life. He was referred by Chan Daniel MD, internal medicine. 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 She has no weakness or sensory loss in the right lower extremity. PMH: Migraine, cervical atypical cells, obesity with BMI 42-44, anxiety, HTN Surg Hx: None Meds: Sumitriptan, control lmw-zk-[id number], triamterene-HCTZ, losartan All: Penicillins (pedal edema) SH: No tobacco/EtOH/IVDU. Employed at [employer], engaged with 2 children. [facility] OSH BLE duplex 03/16/22 - No DVT. 2.4x1.8x1.8cm hypoechoic mass in popliteal fossa. OSH MRI RIGHT knee 03/27/22 - 2.4x1.9x2.1 cm mass posterior to popliteal vessels with increased T2-weighted signal intensity, c/f possible nerve sheath tumor. A total of 19 pages of records were reviewed prior to today???s consultation. HEIGHT/WEIGHT/BMI: Ht Readings from Last 1 Encounters: No data found for Ht Wt Readings from Last 1 Encounters: No data found for Wt MEDICATIONS: Prior to Admission medications Not on File ALLERGIES: Not on File PAST MEDICAL HISTORY: No past medical history on file. REVIEW OF SYSTEMS: A thorough review of systems was performed per the patients general health questionnaire. All systems are negative except for history of present illness per patient questionnaire. PHYSICAL EXAM: General - Resting comfortably on room air RLE - Fullness in RIGHT popliteal fossa, no discrete palpable mass. RIGHT foot toes warm, well perfused. RIGHT knee flexion/extension intact 5/5, RIGHT ankle plantarflexion/dorsiflexion intact 5/5, toe flexion/extension intact 5/5. SILT 10/10 to sural/saphenous/tibial/SPN/DPN. ASSESSMENT AND PLAN: Ms. Mirna Thacker has a 2.5 cm popliteal mass that was found when working up her RIGHT knee fullness, with MRI read c/f possible nerve sheath tumor. She has no weakness or sensory deficits from thismass, and it has a minimal effect on her life. Given her BMI and asymptomatic presentation, the risks of removing the mass that is likely benign outweigh the benefits. We will plan to monitor the mass -- we will get a baseline RLE MRI, and then plan to re-check RLE MRI in 1 year. She showed interest in weight loss, so we gave her our weight loss plan and provided resources to learn about bariatric surgery. All questions/concerns addressed. ATTENDING ATTESTATION: Please see resident/fellow's note. I discussed the case with the resident/fellow, performed the physical examination, reviewed all tests and imaging studies, and agree with the findings and treatmentplan as documented in resident/fellow's note. 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 Given her BMI and lack of symptoms I believe that at most she could consider a fine-needle biopsy or a repeat MRI in 12 months. Being this tumor in someone with her habitus could be associated with significant complications including neurogenic pain and dysfunction. Went over with her the details of the operation and I would be happy to do that surgery fo r her if she wished by contrast she is also interested in weight loss program which I gave her today and also discussed the possibility of a consultation with our bariatric surgeons. Weight loss would certainly make the surgery more likely to be successful without complication. She is in agreement with this plan and I will be happy to see her p.r.n.. Myrtle Rivas M.D. [employer], [facility] documented in this encounter Plan of Treatment Not on file documented as of this encounter Visit Diagnoses Diagnosis Neoplasm Neoplasm of unspecified nature, site unspecified documented in this encounter Historical Medications * This list may reflect changes made after this encounter. ACETAMINOPHEN ORAL Take by mouth multivitamin capsule Take 1 capsule by mouth daily potassium chloride ER 20 mEq CR tablet 05/04/2022 Rlb-Wi-Mczkjhfk 0.18/0.215/0.25 mg-25 mcg per tablet 05/29/2022 triamterene-hydro CHLOROthiazide 37.5-25 mg per tablet 05/13/2022 losartan (COZAAR) 100 mg tablet 05/13/2022 added in this encounter Orders Outpatient Referral Count Last Ordered Date Fir st Ordered Date AMB REFERRAL TO PLASTIC SURGERY 1 2 documented in this encounter Care Teams Long Chain Dyeing Machine Operator Relationship Specialty Start Date End Date Chan Daniel MD [address] [place] [address] PCP - General Internal Medicine 04/30/22 Chan Daniel MD [address] [place] [address] Referring Physician Internal Medicine 04/30/22 documented as of this encounter
--- OUTSIDE RECORDS SUMMARY | 2024-11-10 03:49 | XMS_ITS | Encounter Summary ---
Author Organization [facility] Address [address] [place] [address] Care Team Providers Care Hand Baseball Sewer Name Role Phone Chan Daniel MD Primary Care Provider [phone] Chan Daniel MD Unavailable [phone] Myrtle Rivas MD Unavailable [phone] China Gee MD PhD Unavailable + Encounter Details Date Type Department Care Team (Late st Contact Info) Description 08/06/2022 Telephone [facility] Radiology [address] [place] [address] Magui Deng RN Social History Tobacco Use Types Packs/Day Years Used Date Smoking Tobacco: Never Passive Smoke Exposure: Never Smokeless Tobacco: Never Comments Unknown Sex and Gender Information Value Date Recorded Sex Assigned at Not on file Legal Sex Female 4:01 PM CDT Gender Identity Not on file Sexual Orientation Not on file documented as of this encounter Miscellaneous Notes * Telephone Encounter - Magui Deng RN - 08/06/2022 8:45 AM CDT I spoke with the patient and pre procedure call completed Preprocedure Phone Call Procedure Time Verified: Yes (1300) Arrival Time Verified: Yes (1130) Procedure Location Verified: Yes ([facility]) Medical History Reviewed: Yes NPO Status Reinforced: Yes (npo after 0500) Ride and Caregiver Arranged: Yes Is Patient on Blood Thinners?: No (denies) documented in this encounter Plan of Treatment Not on file documented as of this encounter Visit Diagnoses Not on filedocumented in this encounter Care Teams Hand Baseball Sewer Relationship Specialty Start Date End Date Chan Daniel MD [address] [place] [address] PCP - General Internal Medicine 04/30/22 Chan Daniel MD [address] [place] [address] Referring Physician Internal Medicine 04/30/22 Myrtle Rivas MD [address] [facility] [address] [place] [address] Referring Physician Plastic Surgery 07/14/22 China Gee MD PhD [address] [facility] [address] DIV IM MEDICAL ONCOLOGY, [address], [address] [place] [address] Medical Oncologist/Friction Saw Operator Medical Oncology 07/14/22 documented as of this encounter
--- OUTSIDE RECORDS SUMMARY | 2024-11-10 03:49 | XMS_ITS | Encounter Summary ---
Author Organization [facility] Address [address] [place] [address] Phone Care Team Providers Care Electric Container Tester Name Role Phone Chan Daniel MD Primary Care Provider [phone] Chan Daniel MD Unavailable [phone] Encounter Details Date Type Department Care Team (Late st Contact Info) Description 04/30/2022 Orders Only [facility] Surgery [address] [facility] Advanced Medicine 6th [place] [address] [place] [address] Myrtle Rivas MD [address] [place], [place] [id number] Social History Tobacco Use Types Packs/Day Years [...] on filedocumented in this encounter Care Teams Electric Container Tester Relationship Specialty Start Date End Date Chan Daniel MD [address] [place] [address] PCP - General Internal Medicine 04/30/22 Chan Daniel MD [address] [place] [id number] Referring Physician Internal Medicine 04/30/22 documented as of this encounter
--- OUTSIDE RECORDS SUMMARY | 2024-11-10 03:49 | XMS_ITS | Encounter Summary ---
Author Organization [facility] Address [address] [place] [address] Phone Care Team Providers Care Credentialing Assistant Name Role Phone Chan Daniel MD Primary Care Provider [phone] Chan Daniel MD Unavailable [phone] Myrtle Rivas MD Unavailable [phone] China Gee MD PhD Unavailable + Encounter Details Date Type Department Care Team (Late st Contact Info) Description 07/14/2022 Telephone [facility] Surgery [address] [place] [address] [place] [address] Ashley Mojica M.A. Social History Tobacco Use Types Packs/Day Years Used Date Smoking Tobacco: Never Comments Unknown Sex and Gender Information Value Date Recorded Sex Assigned at Not on file Legal Sex Female 4:01 PM CDT Gender Identity Not on file Sexual Orientation Not on file documented as of this encounter Miscellaneous Notes * Telephone Encounter - Ashley Mojica M.A. - 07/14/2022 2:33 PM CDT Call to patient to ask about changing her appt to a zoom appt. Patient is fine with this. documented in this encounter Plan of Treatment Not on file documented as of this encounter Visit Diagnoses Not on filedocumented in this encounter Care Teams Credentialing Assistant Relationship Specialty Start Date End Date Chan Daniel MD [address] [place] [address] PCP - General Internal Medicine 04/30/22 Chan Daniel MD [address] [place] [address] Referring Physician Internal Medicine 04/30/22 Myrtle Rivas MD [address] [facility] [address] [place] [address] Referring Physician Plastic Surgery 07/14/22 China Gee MD PhD [address] DIV IM MEDICAL ONCOLOGY, [address] [place] [address] Medical Oncologist/Iridologist Medical Oncology 07/14/22 documented as of this encounter
--- OUTSIDE RECORDS SUMMARY | 2024-11-10 03:49 | XMS_ITS | Encounter Summary ---
Author Organization [facility] Address [address] [place] [address] Phone Care Team Providers Care Self Pay Specialist Name Role Phone Chan Daniel MD Primary Care Provider [phone] Chan Daniel MD Unavailable [phone] Reason for Referral * MRI/CAT/PET Scan (Routine) - Closed Specialty Diagnoses / Procedures Referred By Contac t Referred To Contact Radiology Diagnoses Mass of muscle of right lower extremity Procedures MRI Knee Right W WO Contrast Myrtle Rivas MD [address] [place] [address] Phone: tel: fax: [facility] [address] [place] [address] Referral ID Status Reason Start Date Expiration Date Visits Re quested Visits Authorized [id number] Closed 06/17/2022 06/17/2023 1 1 Encounter Details Date Type Department Care Team (Late st Contact Info) Description 06/10/2022 Orders Only [facility] Surgery [address] [facility] 6th [place] [address] [place] [address] Myrtle Rivas MD [address] [place] [address] Mass of muscle of right lower extremity (Primary Dx) Social History Tobacco Use Types Packs/Day Years Used Date Smoking Tobacco: Never Comments Unknown Sex and Gender Information Value Date Recorded Sex Assigned at Not on file Legal Sex Female 4:01 PM CDT Gender Identity Not on file Sexual Orientation Not on file documented as of this encounter Plan of Treatment Not on file documented as of this encounter Results * MRI Knee Right W WO Contrast (07/11/2022 9:06 AM CDT) Anatomical Region Laterality Modality Lower Extremities Right Magnetic Reson ance 07/11/2022 11:3 7 AM CDT Impressions 07/11/2022 12:04 PM CDT 1. ??Peripherally enhancing, T2 hyperintense popliteal mass with central necrosis measuring 2.1 x 2.4 x 2.0 cm. 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 ??Given central necrosis, malignant peripheral nerve sheath tumor must be considered. Soft tissue sarcoma could have this appearance, but is less likely. ??If clinically indicated, PET/CT could be considered for further characterization. 2. 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 Dictated by: Peggy Paris M.D. The radiology attending physician has personally reviewed this study, and had reviewed and/or edited this written report and agrees with it. Electronically signed by: MD Peggy Richards 07/11/2022 12:04 PM CDT EXAMINATION: 1. MRI KNEE RIGHT W WO CONTRAST HISTORY: ??Right popliteal mass. ??Question nerve sheath tumor. TECHNIQUE: ??MR examination of the right knee was performed without and with the use of intravenous contrast (Dotarem 20 mL). FINDINGS: Right popliteal sonogram 06/10/2022 was reviewed. Within the right knee popliteal fossa just posterior to the neurovascular bundle is a T1 hypointense and T2 hyperintense mass which measures 2.1 x 2.4 x 2.0 cm (transverse x anteroposterior x craniocaudal). ??This mass demonstrates avid peripheral enhancement with central necrosis. Medial and lateral knee joint spaces are preserved. ??There is moderate chondrosis of the central trochlea with associated subchondral edema. ??No displaced meniscus tear. The cruciate and collateral ligaments are intact. ??The extensor mechanism is normal. There is a small right knee joint effusion. ??Imaged muscle bulk of the right knee is normal. No fracture or marrow replacing lesion. Procedure Note Abdiaziz Giang MD - 07/11/2022 EXAMINATION: 1. MRI KNEE RIGHT W WO CONTRAST HISTORY: Right popliteal mass. Question nerve sheath tumor. TECHNIQUE: MR examination of the right knee was performed without and with the use of intravenous contrast (Dotarem 20 mL). FINDINGS: Right popliteal sonogram 06/10/2022 was reviewed. Within the right knee popliteal fossa just posterior to the neurovascular bundle is a T1 hypointense and T2 hyperintense mass which measures 2.1 x 2.4 x 2.0 cm (transverse x anteroposterior x craniocaudal). This mass demonstrates avid peripheral enhancement with central necrosis. Medial and lateral knee joint spaces are preserved. There is moderate chondrosis of the central trochlea with associated subchondral edema. No displaced meniscus tear. The cruciate and collateral ligaments are intact. The extensor mechanism is normal. There is a small right knee joint effusion. Imaged muscle bulk of the right knee is normal. No fracture or marrow replacing lesion. IMPRESSION: 1. Peripherally enhancing, T2 hyperintense popliteal mass with central necrosis measuring 2.1 x 2.4 x 2.0 cm. 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 Given central necrosis, malignant peripheral nerve sheath tumor must be considered. Soft tissue sarcoma could have this appearance, but is less likely. If clinically indicated, PET/CT could be considered for further characterization. 2. 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 Dictated by: Peggy Paris M.D. The radiology attending physician has personally reviewed this study, and had reviewed and/or edited this written report and agrees with it. Electronically signed by: Abdiaziz Giang MD Myrtle Rivas MD IM MRI PROCEDURES Final R esult documented in this encounter Visit Diagnoses Diagnosis Mass of muscle of right lower extremity- Primary Mass of muscle of right lower extremity documented in this encounter Care Teams Self Pay Specialist Relationship Specialty Start Date End Date Chan Daniel MD [address] [place] [address] PCP - General Internal Medicine 04/30/22 Chan Daniel MD [address] [place] [address] Referring Physician Internal Medicine 04/30/22 documented as of this encounter
--- OUTSIDE RECORDS SUMMARY | 2024-11-10 03:49 | XMS_ITS | Encounter Summary ---
Author Organization [facility] Address [address] [place] [address] Care Team Providers Care Panel Wirer Name Role Phone Chan Daniel MD Primary Care Provider [phone] Chan Daniel MD Unavailable [phone] Myrtle Rivas MD Unavailable [phone] China Gee MD PhD Unavailable + Encounter Details Date Type Department Care Team (Latest Contact Info) Description 07/27/2022 1:43 PM CDT - 07/27/2022 11:59 PM CDT Hospital Encounter [facility] ([facility]) [address] [place] [id number] Neoplasm Discharge Disposition: Discharge to home or [...] on file documented as of this encounter Medications at Time of Discharge ACETAMINOPHEN ORAL Take by mouth losartan (COZAAR) 100 mg tablet 05/13/2022 multivitamin capsule Take 1 capsule by mouth daily potassium chloride ER 20 mEq CR tablet 05/04/2022 Rtl-Nk-Ctsjxvgn 0.18/0.215/0.25 mg-25 mcg per tablet 05/29/2022 triamterene-hydro CHLOROthiazide 37.5-25 mg per tablet 05/13/2022 documented as of this encounter Discharge Disposition Disposition Code Departure Means Destination Discharge to home or self care documented in this encounter Plan of Treatment Not on file documented as of this encounter Procedures Procedure Name Priority Date/Time Associated Diagnosis Comments EGFR Routine 07/27/2022 2:58 PM CDT Neoplasm DIFFERENTIAL AUTO Routine 07/27/2022 2:5 8 PM CDT Neoplasm CBC WITH AUTO DIFFERENTIAL Routine 07/27/2022 2:58 PM CDT Neoplasm COMPREHENSIVE METABOLIC PANEL Routine 07/27/2022 2:58 PM CDT Neoplasm documented in this encounter Results * eGFR (07/27/2022 2:58 PM CDT) eGFR >90 90 - 130 mL/min/1. 73 m2 [facility] Comment: Interpretive Data Reference Interval Normal ?>/= 90 mL/min/1.73m2 Mildly decreased* ? 60 - 89 mL/min/1.73m2 Mildly to moderately decreased ?45 - 59 mL/min/1.73m2 Moderately to severely decreased ??30 - 44 mL/min/1.73m2 Severely decreased ?15 - 29 mL/min/1.73m2 Kidney Failure ?< 15 ??mL/min/1.73m2 *Relative to young adult level Estimated glomerular filtration rate is determined by the 2020 CKD-EPI equation recommended by the National Kidney Foundation (A Unifying Approach to GFR Estimation: Recommendations of the NKF-ASK Task Force on Reassessing the Inclusion of Race in Diagnosing Kidney Disease, JASN 2020). The CKD-EPI equation should not be used for patients with unstable renal function and has not been validated in children and those over 70. Current interpretive data was last reviewed 2021. Testing performed by: [facility], [address] [place] [phone] Blood 07/27/2022 2:58 PM CDT 07/27/2022 3:01 PM CDT China Gee MD PhD LAB BLOOD ORDERABL ES Final Result [facility] Department [place] [address] * (ABNORMAL) Differential, auto (07/27/2022 2:58 PM CDT) Neutrophil abs 7.6(H) 1.8 - 6.6 K/cumm [facility] Comment:Testing performed by : [facility], [address] [place] [phone] Lymphocyte abs 2.6 1.2 - 3.3 K/cumm C[facility]J Comment:Testing performed by : [facility], [address] [place] [phone] Monocyte abs 1.2 0.2 - 1.2 K/cumm CERNER BJ Comment:Testing performed by : [facility], [address] [place] [address] Eosinophil abs 0.2 0.0 - 0.5 K/cumm CERNER BJ Comment:Testing performed by : [facility], [address] [place] [address] Basophil abs 0.1 0.0 - 0.2 K/cumm C[facility]ER BJ Comment:Testing performed by : [address] [phone] Neutrophil pct 64.6 % [facility] Comment: Interpretive Data Percent cell count reference ranges are not reported, since discordance with absolute values may lead to misinterpretation of CBC data. Current Interpretive Data was last revised on 2018. Testing performed by: [facility], [address] [place] [phone] Lymphocyte pct 22.3 % [facility] Comment: Interpretive Data Percent cell count reference ranges are not reported, since discordance with absolute values may lead to misinterpretation of CBC data. Current Interpretive Data was last revised on 2018. Testing performed by: [facility], [address] [place] [address] Monocyte pct 10.1 % [facility] GUERRERO Comment:Testing performed by : [facility], [address] [place] [phone] Eosinophil pct 2.1 % [facility] GUERRERO Comment:Testing performed by : [facility], [address] [place] [address] Basophil pct 0.9 % [facility] Comment:Testing performed by : [facility], [address] [place] [phone] Blood 07/27/2022 2:58 PM CDT 07/27/2022 3:01 PM CDT us China Gee MD PhD LAB BLOOD ORDERABL ES Final Result [facility] Department [place] [address] * (ABNORMAL) CBC with auto differential (07/27/2022 2:58 PM CDT) WBC 11.7(H) 3.8 - 9.8 K/cumm [facility] Comment:Testing performed by : [facility], [address] [place] [address] Hgb 13.6 12.1 - 15.1 g/dL [facility]LEY GUERRERO Comment:Testing performed by : [facility], [address] [place] [address] Hct 40.4 36.1 - 44.3 % [facility] GUERRERO Comment:Testing performed by : [address] [address] Plt 443(H) 140 - 440 K/cumm [facility] GUERRERO Comment:Testing performed by : [facility], [address] [place] [address] MPV 7.5 6.8 - 10.4 fL [facility] Comment:Testing performed by : [facility], [address] [place], [place] [phone] RBC 4.40 3.90 - 5.00 M/cumm CERARELI BJ Comment:Testing performed by : [facility], [address] [place], [place] [phone] MCV 91.8 80.0 - 97.6 fL [facility]LEY BJ Comment:Testing performed by : [facility], [address] [place] [address] MCH 30.9 26.7 - 33.7 pg [facility]I [facility] Comment:Testing performed by : [facility], [address] [place] [address] MCHC 33.7 32.7 - 35.5 g/dL [facility] Comment:Testing performed by : [facility], [address] [place] [address] RDW CV 13.4 11.8 - 14.6 % [facility] Comment:Testing performed by : [facility], [address] [place] [address] NRBC abs 0.00 0.00 - 0.01 K/cumm [facility] Comment:Testing performed by : [facility], [address] [place] [address] Blood 07/27/2022 2:58 PM CDT 07/27/2022 3:01 PM CDT us China Gee MD PhD LAB BLOOD ORDERABL ES Final Result [facility] Department of Laboratories [place], [place] [id number] * (ABNORMAL) Comprehensive metabolic panel (07/27/2022 2:58 PM CDT) Sodium 139 135 - 145 mmol/L [facility] Comment:Testing performed by : [facility], [address] [place], [place] [phone] Potassium, pl 4.2 3.3 - 4.9 mmol/L [facility] Comment:Testing performed by : [facility], [address] [place] [address] Chloride 101 97 - 110 mmol/L [facility] Comment:Testing performed by : [facility], [address] [place] [address] CO2 30 22 - 32 mmol/L [facility] Comment:Testing performed by : [facility], [address] [place] [address] Anion gap 8 2 - 15 mmol/L [facility] Comment:Testing performed by : [facility], [address] [place] [address] BUN 18 8 - 25 mg/dL [facility] Comment:Testing performed by : [facility], [address] [place] [phone] Creatinine 0.58(L) 0.60 - 1.10 mg/dL [facility] Comment:Testing performed by : [facility], [address] [place] [address] Glucose 116 70 - 199 mg/dL [facility] Comment: Interpretive Data Fasting glucose >/= 126 mg/dl is diagnostic for diabetes. ?? Fasting is defined as no caloric intake for at least 8 hours. Fasting glucose between 100 mg/dl to 125 mg/dl is diagnostic of prediabetes. In a patient with classic symptoms of hyperglycemia or hyperglycemic crisis, a random glucose >/= 200 mg/dl is diagnostic for diabetes. In the absence of unequivocal hyperglycemia, results should be confirmed by repeat testing. The classification and Diagnosis of Diabetes Diabetes Care 2017;40 (Suppl. 1):S11. Current interpretive data was last revised 2017. Testing performed by: [facility], [address] [place] [address] Calcium 9.8 8.5 - 10.3 mg/dL [facility]J Comment:Testing performed by : [facility], [address] [place] [phone] Bilirubin, total 0.3 0.1 - 1.2 mg/dL [facility]J Comment:Testing performed by : [facility], [address] [place] [phone] Protein, pl 8.1 6.5 - 8.5 g/dL [facility] Comment:Testing performed by : [facility], [address] [place] [address] Albumin 4.5 3.5 - 5.0 g/dL [facility] Comment:Testing performed by : [facility], [address] [place] [address] Alk phos 89 40 - 130 Units/L [facility] Comment:Testing performed by : [facility], [address] [place] [phone] ALT <5(L) 7 - 45 Units/L [facility] Comment:Testing performed by : [facility], [address] [place] [phone] AST 14 10 - 45 Units/L [facility] Comment:Testing performed by : [facility], [address] [place] [phone] Blood 07/27/2022 2:58 PM CDT 07/27/2022 3:01 PM CDT us China Gee MD PhD LAB BLOOD ORDERABL ES Final Result [facility] Department [place] [address] documented in this encounter Visit Diagnoses Diagnosis Neoplasm Neoplasm of unspecified nature, site unspecified documented in this encounter Orders Lab Orders Without Results Count Last Ordered D ate First Ordered Date ONCBCN STUDY LAB 1 07/27/2022 documented in this encounter Care Teams Panel Wirer Relationship Specialty Start Date End Date Chan Daniel MD [address] [place] [address] PCP - General Internal Medicine 04/30/22 Chan Daniel MD [address] [place] [address] Referring Physician Internal Medicine 04/30/22 Myrtle Rivas MD [address] [place] [address] Referring Physician Plastic Surgery 07/14/22 China Gee MD PhD [address] DIV IM MEDICAL ONCOLOGY, [address], [address]B, [address] [place] [address] Medical Oncologist/Clam Shucker Medical Oncology 07/14/22 documented as of this encounter
--- OUTSIDE RECORDS SUMMARY | 2024-11-10 03:49 | XMS_ITS | Encounter Summary ---
Author Organization [facility] Address [address] [place] [address] Phone Care Team Providers Care Nps Name Role Phone Chan Daniel MD Primary Care Provider [phone] Chan Daniel MD Unavailable [phone] Encounter Details Date Type Department Care Team (Late st Contact Info) Description 05/10/2022 Telephone [facility] Surgery [address] [facility] 6th [place] [address] [place] [address] Ashley Mojica M.A. Social History [...] Telephone Encounter - Ashley Mojica M.A. - 05/10/2022 10:18 AM CDT Return call to patient re: her appt on 05/10 Rescheduled to 06/10. Patient stated she received her new patient paperwork in the mail with 05/10 as her appt date. She was confirming we did in fact reschedule her appt. Left Voicemail documented in this encounter Plan of Treatment Not on file documented as of this encounter Visit Diagnoses Not on filedocumented in this encounter Care Teams Nps Relationship Specialty Start Date End Date Chan Daniel MD [address] [place] [address] PCP - General Internal Medicine 04/30/22 Chan Daniel MD [address] [place] [address] Referring Physician Internal Medicine 04/30/22 documented as of this encounter
--- OUTSIDE RECORDS SUMMARY | 2024-11-10 03:49 | XMS_ITS | Encounter Summary ---
Author Organization [facility] Address [address] [place] [address] Phone Care Team Providers Care Visor Installer Name Role Phone Chan Daniel MD Primary Care Provider [phone] Chan Daniel MD Unavailable [phone] Encounter Details Date Type Department Care Team (Late st Contact Info) Description 04/30/2022 Telephone [facility] Surgery [address] [facility] 6th [place] [address] [place] [address] Ashley Mojica M.A. Social History [...] Telephone Encounter - Ashley Mojica M.A. - 04/30/2022 4:23 PM CDT Call to patient to schedule her appt with Dr. Rivas, scheduled on 05/10 @ 3:15. Advised I will need to call her on Tuesday with her US appt and depending on the date of the , her appt with Dr. Rivas may change. documented in this encounter Plan of Treatment Not on file documented as of this encounter Visit Diagnoses Not on filedocumented in this encounter Care Teams Visor Installer Relationship Specialty Start Date End Date Chan Daniel MD [address] [place] [address] PCP - General Internal Medicine 04/30/22 Chan Daniel MD [address] [place] [address] Referring Physician Internal Medicine 04/30/22 documented as of this encounter
--- OUTSIDE RECORDS SUMMARY | 2024-11-10 03:49 | XMS_ITS | Encounter Summary ---
Author Organization [facility] Address [address] [place] [address] Care Team Providers Care Lapping Machine Tender Name Role Phone Chan Daniel MD Primary Care Provider [phone] Chan Daniel MD Unavailable [phone] Myrtle Rivas MD Unavailable [phone] China Gee MD PhD Unavailable + Encounter Details Date Type Department Care Team (Late st Contact Info) Description 08/10/2022 Telephone [facility] Radiology [address] [place] [address] Zelda Mueller RN Social History Tobacco Use Types Packs/Day Years Used Date Smoking Tobacco: Never Passive Smoke Exposure: Never Smokeless Tobacco: Never Comments Unknown Sex and Gender Information Value Date Recorded Sex Assigned at Not on file Legal Sex Female 4:01 PM CDT Gender Identity Not on file Sexual Orientation Not on file documented as of this encounter Miscellaneous Notes * Telephone Encounter - Zelda Mueller RN - 08/10/2022 12:23 PM CDT [facility]. Post procedure call DOS 08/09/22 Right popliteal soft tissue mass biopsy under ultrasound guidance. The soft tissue core specimens were sent to surgical pathology. Site Soreness: N Ice compress for comfort measures needed or instructed:N Medication needed for post procedure pain: Site clean, dry, and dressing/Dermabond intact:Y Signs or symptoms of infection to site (increasing redness or site drainage):N Site care reviewed (Dermabond/steri strips will fall off on its own, No bathing or submerging in water for 4 days, Able to shower after 24 hours post procedure- pat site lightly to dry): Y Plan to follow up with referring MD: Larisa Gee MD Post procedure follow up call was placed to Mirna for status. She is doing well overall and denies pain at site of biopsy.Site inspected and is c/d/I. Reviewed post care instructions and informed to follow up with Dr. Gee for pending biopsy results. She was appreciative of call. documented in this encounter Plan of Treatment Not on file documented as of this encounter Visit Diagnoses Not on filedocumented in this encounter Care Teams Lapping Machine Tender Relationship Specialty Start Date End Date Chan Daniel MD [address] [place] [address] PCP - General Internal Medicine 04/30/22 Chan Daniel MD [address] [place] [address] Referring Physician Internal Medicine 04/30/22 Myrtle Rivas MD [address] [place] [address] Referring Physician Plastic Surgery 07/14/22 China Gee MD PhD [address] DIV IM MEDICAL ONCOLOGY, [address], [address]B, [address] [place] [address] Medical Oncologist/Production Reproduction Manager Medical Oncology 07/14/22 documented as of this encounter
--- OUTSIDE RECORDS SUMMARY | 2024-11-10 03:49 | XMS_ITS | Encounter Summary ---
Author Organization [facility] Address [address] [place] [address] Phone Care Team Providers Care Help Desk Support Name Role Phone Chan Daniel MD Primary Care Provider [phone] Chan Daniel MD Unavailable [phone] Encounter Details Date Type Department Care Team (Late st Contact Info) Description 05/05/2022 Telephone [facility] Surgery [address] [facility] 6th [place] [address] [place] [address] Ashley Mojica M.A. Social History [...] Telephone Encounter - Ashley Mojica M.A. - 05/05/2022 1:18 PM CDT Call to patient to reschedule her appt with Dr. Rivas to follow her US set on 06/10 @ 7:[address] Rivas appt set on 06/10 @ 12:45 pm documented in this encounter Plan of Treatment Not on file documented as of this encounter Visit Diagnoses Not on filedocumented in this encounter Care Teams Help Desk Support Relationship Specialty Start Date End Date Chan Daniel MD [address] [place] [address] PCP - General Internal Medicine 04/30/22 Chan Daniel MD [address] [place] [address] Referring Physician Internal Medicine 04/30/22 documented as of this encounter
--- OUTSIDE RECORDS SUMMARY | 2024-11-10 03:49 | XMS_ITS | Encounter Summary ---
Author Organization [facility] Address [address] [place] [address] Phone Care Team Providers Care Electrochemist Name Role Phone Chan Daniel MD Primary Care Provider + [phone] Chan Daniel MD Unavailable [phone] Myrtle Rivas MD Unavailable [phone] Nestor Gee MD PhD Unavailable + Reason for Referral * Oncology (Routine) - Closed Specialty Diagnoses / Procedures Referred By Contac t Referred To Contact Oncology Diagnoses Neoplasm Myrtle Rivas MD [address] [place] [address] Phone: tel: fax: Nestor Gee MD PhD [phone] [facility] [address] [place] [address] Phone: tel: fax: Referral ID Status Reason Start Date Expiration Date V isits Requested Visits Authorized [id number] Closed Specialty Services Required 07/14/2022 10/30/2023 99 99 Question Answer Please select the performing region: [facility] (All Locations) [[id number]] Please select the performing department: [facility] [[id number]] Is this referral for Breast Health Multi-Disciplinary Clinic? No To provider: NESTOR GEE [[id number]] # of visits: 1 Comments Popliteal mass Encounter Details Date Type Department Care Team (Late st Contact Info) Description 07/14/2022 Orders Only [facility] Surgery [address] [facility] 6th [place] [address] Myrtle Rivas MD [address] [place], [place] [id number] Neoplasm (Primary Dx) Social History Tobacco Use Types Packs/Day Years Used Date Smoking Tobacco: Never Comments Unknown Sex and Gender Information Value Date Recorded Sex Assigned at Not on file Legal Sex Female 4:01 PM CDT Gender Identity Not on file Sexual Orientation Not on file documented as of this encounter Plan of Treatment Scheduled Referrals Name Type Priority Associated Diagnoses Order Schedule Ambulatory referral to Oncology Outpatient Referral Routine Neoplasm Expected: 07/28/2022 (Approximate), Expires: 07/14/2023 documented as of this encounter Visit Diagnoses Diagnosis Neoplasm- Primary Neoplasm of unspecified nature, site unspecified documented in this encounter Care Teams Electrochemist Relationship Specialty Start Date End Date Chan Daniel MD [address] [place] [address] PCP - General Internal Medicine 04/30/22 Chan Daniel MD [address] [place] [address] Referring Physician Internal Medicine 04/30/22 Myrtle Rivas MD [address] [place] [address] Referring Physician Plastic Surgery 07/14/22 Nestor Gee MD PhD [address] [facility] DIV IM MEDICAL ONCOLOGY, [address] [place] [address] Medical Oncologist/Scheduling Specialist Medical Oncology 07/14/22 documented as of this encounter
--- OUTSIDE RECORDS SUMMARY | 2024-11-10 03:49 | XMS_ITS | Encounter Summary ---
Author Organization [facility] Address [address] [place] [address] Phone Care Team Providers Care Bowling Ball Grader And Marker Name Role Phone Chan Daniel MD Primary Care Provider [phone] Chan Daniel MD Unavailable [phone] Encounter Details Date Type Department Care Team (Late st Contact Info) Description 05/05/2022 Telephone [facility] Surgery [address] [facility] 6th [place] [address] [place] [address] Ashley Mojica M.A. Social History [...] Encounter - Ashley Mojica M.A. - 05/05/2022 1:49 PM CDT Return call from patient acknowledging my voicemail with her scheduled appts. documented in this encounter Plan of Treatment Not on file documented as of this encounter Visit Diagnoses Not on filedocumented in this encounter Care Teams Bowling Ball Grader And Marker Relationship Specialty Start Date End Date Chan Daniel MD [address] [place] [address] PCP - General Internal Medicine 04/30/22 Chan Daniel MD [address] [place] [address] Referring Physician Internal Medicine 04/30/22 documented as of this encounter
--- OUTSIDE RECORDS SUMMARY | 2024-11-10 03:49 | XMS_ITS | Encounter Summary ---
Author Organization [facility] Address [address] [place] [address] Care Team Providers Care Tire Man Name Role Phone Chan Daniel MD Primary Care Provider [phone] Chan Daniel MD Unavailable [phone] Myrtle Rivas MD Unavailable [phone] China Gee MD PhD Unavailable + Encounter Details Date Type Department Care Team (Late st Contact Info) Description 07/09/2022 Telephone [facility] [address] [place] [address] Myrtle Rivas MD [address] [facility] [address] [place], [place] [id number] Social History Tobacco Use Types Packs/Day Years [...] on filedocumented in this encounter Care Teams Tire Man Relationship Specialty Start Date End Date Chan Daniel MD [address] [place] [address] PCP - General Internal Medicine 04/30/22 Chan Daniel MD [address] [place] [address] Referring Physician Internal Medicine 04/30/22 Myrtle Rivas MD [address] [facility] [address] [place] [address] Referring Physician Plastic Surgery 07/14/22 China Gee MD PhD [address] [facility] DIV IM MEDICAL ONCOLOGY, [address] [place] [address] Medical Oncologist/Health Physics Technician Medical Oncology 07/14/22 documented as of this encounter
--- OUTSIDE RECORDS SUMMARY | 2024-11-10 03:49 | XMS_ITS | Encounter Summary ---
Author Organization [facility] Address [address] [place] [address] Phone Care Team Providers Care Perfume Compounder Name Role Phone Chan Daniel MD Primary Care Provider [phone] Chan Daniel MD Unavailable [phone] Encounter Details Date Type Department Care Team (Late st Contact Info) Description 06/10/2022 Telephone [facility] Surgery [address] [facility] 6th [place] [address] [place] [address] Natalie Roy RN Social History Tobacco Use Types Packs/Day Years Used Date Smoking Tobacco: Never Comments Unknown Sex and Gender Information Value Date Recorded Sex Assigned at Not on file Legal Sex Female 4:01 PM CDT Gender Identity Not on file Sexual Orientation Not on file documented as of this encounter Miscellaneous Notes * Telephone Encounter - Natalie Roy RN - 06/10/2022 12:38 PM CDT MRI KNEE RIGHT W WO CONTRAST 07/11/22 8 am, 7:30 arrival. 3rd floor CAM, no prep needed. Pt aware in clinic. documented in this encounter Plan of Treatment Not on file documented as of this encounter Visit Diagnoses Not on filedocumented in this encounter Care Teams Perfume Compounder Relationship Specialty Start Date End Date Chan Daniel MD [address] [place] [address] PCP - General Internal Medicine 04/30/22 Chan Daniel MD [address] [place] [address] Referring Physician Internal Medicine 04/30/22 documented as of this encounter
--- OUTSIDE RECORDS SUMMARY | 2024-11-10 03:49 | XMS_ITS | Encounter Summary ---
Author Organization [facility] Address [address] [place] [address] Phone Care Team Providers Care It Support Specialist Name Role Phone Chan Daniel MD Primary Care Provider [phone] Chan Daniel MD Unavailable [phone] Myrtle Rivas MD Unavailable [phone] China Gee MD PhD Unavailable + Reason for Visit * Consultation (Routine) - Closed Specialty Diagnoses / Procedures Referred By Contac t Referred To Contact Plastic Surgery Diagnoses Neoplasm Chan Daniel MD [address] [place] [address] Phone: tel: fax: [facility] (All Locations) Referral ID Status Reason Start Date Expiration Date V isits Requested Visits Authorized [id number] Closed Specialty Services Required 04/30/2022 05/30/2023 99 99 Encounter Details Date Type Department Care Team (Late st Contact Info) Description 07/15/2022 8:45 AM CDT Telemedicine [facility] Surgery [address] [facility] 6th [place] [address] [place] [address] Myrtle Rivas MD [address] [place] [address] Neoplasm (Primary Dx) Social History Tobacco Use Types Packs/Day Years Used Date Smoking Tobacco: Never Comments Unknown Sex and Gender Information Value Date Recorded Sex Assigned at Not on file Legal Sex Female 4:01 PM CDT Gender Identity Not on file Sexual Orientation Not on file documented as of this encounter Progress Notes * Myrtle Rivas MD - 07/15/2022 8:45 AM CDT Images from the original note were not included. This was a telemedicine visit with Mirna Thacker alone which took place via Real-time video connection (Snapwire, Zoom or similar).During the visit, I was located at home and the patient was located at home in the state [facility]. I was present for the [place] portions with the resident and patient/caregiver. I agree with the findings and plan of care as documented in the resident's note. My visit with the patient started at 8:40 and ended at 850. My total encounter time on 07/15/2022 was 30 minutes which was spent in the activities documented in the note. This includes time spent prior to the visit and after the visit in direct care of the patient. This time does not include time spent in any separately reportable services.. The patient: has been informed that the visit may not be secure and acknowledged the information. The Attending has explained the option of participating in a telephone or video visit during the COVID-19 public health emergency to them. After being given an opportunity to ask questions about and discuss this type of visit, they verbally consented to proceeding with the telephone/video visit and understand that this service replaces an office visit. Myrtle Rivas MD PLASTICS ESTABLISHED PATIENT NOTE Patient: Mirna Thacker : 1975 Date of Service: 07/13/2022 PCP: Chan Daniel MD DATE OF VISIT: 07/13/2022 Dear Chan Daneil MD, I was pleased to see Mirna Thacker today for further discussion of her RIGHT knee mass and to discuss her MRI findings. I last saw her on 06/10/22 and recommended an MRI. 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 Given the central necrosis, malignant peripheral nerve sheath tumor must be considered. She has an appointment to see Dr. Gee on 07/27/22 to evaluate whether this mass is malignant. However, after personally reviewing the MRI and evaluating her function, I feel strongly this is benign;however, given her BMI, I think she would have a difficult time with wound healing and is at much higher risk for postoperative complications including neuropathic pain and loss of function given thetumors location within her nerve. I have previously given her my weight-loss plan and I strongly encourage her to lose weight prior to excising this tumor to decrease these risks. I would also like to obtain an EDX to evaluate her RLE. If Dr. Gee were to feel this tumor were malignant, then we would of course move forward with an excision in a more timely manner. She is amenable with this plan.All of her questions were answered. Sincerely, Myrtle Rivas, Cathead Operator, [facility] Dr. Myrtle Rivas dictating using Fluency Direct. Aviation Survival Technician nonsensical variances may occur. ATTENDING ATTESTATION: Please see resident/fellow's note. I discussed the case with the resident/fellow, performed the physical examination, reviewed all tests and imaging studies, and agree with the findings and treatmentplan as documented in resident/fellow's note. Briefly, this is a patient who had an MRI and the read was possible malignancy. I doubt that that is the case but given that interpretation by our radiologist she will be seeing Dr. Gee who will likely recommend a PET scan and also we will be organizing an ED X to evaluate for tibial nerve function to make sure that the study is essentially normal. I went over all of this with the patient. After I had reviewed the MRI I would already move forward with the referral to Dr. Gomez and set that up so things are moving forward quickly for this patient. I also encouraged her to decrease that BMI because if she needs surgery at a BMI of 44 their will mostlikely be issues with wound healing and will make the surgery more complicated which could then result in nerve injury with increased pain and decreased neurological function and possible vascular injury as well given the location. We will telemedicine or visit in office as she chooses once we get that above information collected. Myrtle Rivas M.D. Cathead Operator, [employer] [facility] [employer] [facility] Dr. Myrtle Rivas is dictating using Fluency Direct. Aviation Survival Technician nonsensical variances may occur. documented in this encounter Miscellaneous Notes * Addendum Note - Eun Roy RN - 07/15/2022 8:45 AM CDTAddended by: EUN ROY on: 07/15/2022 02:31 PM Modules accepted: Orders documented in this encounter Plan of Treatment Not on file documented as of this encounter Visit Diagnoses Diagnosis Neoplasm- Primary Neoplasm of unspecified nature, site unspecified documented in this encounter Care Teams It Support Specialist Relationship Specialty Start Date End Date Chan Daniel MD [address] [place] [address] PCP - General Internal Medicine 04/30/22 Chan Daniel MD [address] [place] [address] Referring Physician Internal Medicine 04/30/22 Myrtle Rivas MD [address] [place] [address] Referring Physician Plastic Surgery 07/14/22 China Gee MD PhD [address] DIV IM MEDICAL ONCOLOGY, [address] [place] [address] Medical Oncologist/Assistant Center Manager Medical Oncology 07/14/22 documented as of this encounter
--- OUTSIDE RECORDS SUMMARY | 2024-11-10 03:49 | XMS_ITS | Encounter Summary ---
Author Organization [facility] Address [address] [place] [address] Care Team Providers Care Booking Police Officer Name Role Phone Chan Daniel MD Primary Care Provider [phone] Chan Daniel MD Unavailable [phone] Myrtle Rivas MD Unavailable [phone] China Gee MD PhD Unavailable + Encounter Details Date Type Department Care Team (Late st Contact Info) Description 08/03/2022 Telephone [facility] Radiology [address] [place] [address] Zelda Mueller RN Social History Tobacco Use [...] Telephone Encounter - Zelda Mueller RN - 08/03/2022 3:25 PM CDT [facility] Radiology Date order received:07/28/22 Referring MD office: China Gee MD Spoke with patient and below information given/reviewed: RICHARD IVKenan has spoken to Mirna and communicated all details regarding scheduled appointment. Information form was sent to home per pt request. Date scheduled:08/09/22 Location: [facility] admitting Registration time: 1130 Procedure time: 1300 Instructed on NPO instructions: NPO after 0500 Indicated wedding transportation driver (family/friend) required: Y wedding transportation driver required to accompany pt to scheduled appointment Anticoagulant/Antiplatelet use: N Insurance [place] needed: [facility]- Requested insurance approval through ordering office, Dr. China Gee/ Tayla Anderson RN documented in this encounter Plan of Treatment Not on file documented as of this encounter Visit Diagnoses Not on filedocumented in this encounter Care Teams Booking Police Officer Relationship Specialty Start Date End Date Chan Daniel MD [address] [place] [address] PCP - General Internal Medicine 04/30/22 Chan Daniel MD [address] [place] [address] Referring Physician Internal Medicine 04/30/22 Myrtle Rivas MD [address] [facility] [address] [place] [address] Referring Physician Plastic Surgery 07/14/22 China Gee MD PhD [address] [facility] DIV IM MEDICAL ONCOLOGY, [address] [place] [address] Medical Oncologist/Finance Executive Medical Oncology 07/14/22 documented as of this encounter
--- OUTSIDE RECORDS SUMMARY | 2024-11-10 03:49 | XMS_ITS | Encounter Summary ---
Author Organization [facility] Address [address] [place] [address] Care Team Providers Care Property Specialist Name Role Phone Chan Daniel MD Primary Care Provider + [phone] Chan Daniel MD Unavailable [phone] Myrtle Rivas MD Unavailable [phone] China Gee MD PhD Unavailable + Encounter Details Date Type Department Care Team (Late st Contact Info) Description 07/30/2022 Telephone [facility] Radiology [address] [place] [address] Zelda Mueller RN Social History Tobacco Use [...] Telephone Encounter - Zelda Mueller RN - 07/30/2022 9:15 AM CDT RICHARD HAMMONDS has contaced Mirna to arrange scheduling requested R knee soft tissue mass biopsy. A detailed message with call back was left for pt to call and arrange appointment. documented in this encounter Plan of Treatment Not on file documented as of this encounter Visit Diagnoses Not on filedocumented in this encounter Care Teams Property Specialist Relationship Specialty Start Date End Date Chan Daniel MD [address] [place] [address] PCP - General Internal Medicine 04/30/22 Chan Daniel MD [address] [place] [address] Referring Physician Internal Medicine 04/30/22 Myrtle Rivas MD [address] [place] [address] Referring Physician Plastic Surgery 07/14/22 China Gee MD PhD [address] DIV IM MEDICAL ONCOLOGY, [address] [place] [address] Medical Oncologist/Product Trainer Medical Oncology 07/14/22 documented as of this encounter
--- OUTSIDE RECORDS SUMMARY | 2024-11-10 03:49 | XMS_ITS | Encounter Summary ---
Author Organization [facility] Address [address] [place] [address] Phone Care Team Providers Care Supervisor Dog License Officer Name Role Phone Chan Daniel MD Primary Care Provider + [phone] Chan Daniel MD Unavailable [phone] Myrtle Rivas MD Unavailable [phone] China Gee MD PhD Unavailable + Encounter Details Date Type Department Care Team (Late st Contact Info) Description 07/27/2022 3:00 PM CDT Lab [facility] 7th [place] [address] [place] [address] Neoplasm Social History Tobacco Use Types Packs/Day [...] site unspecified documented in this encounter Orders Appointment Requests Count Last Ordered Date Fi rst Ordered Date ONCBCN LAB APPOINTMENT 1 07/27/2022 documented in this encounter Care Teams Supervisor Dog License Officer Relationship Specialty Start Date End Date Chan Daneil MD [address] [place] [address] PCP - General Internal Medicine 04/30/22 Chan Daniel MD [address] [place] [address] Referring Physician Internal Medicine 04/30/22 Myrtle Rivas MD [address] [facility] [address] [place] [address] Referring Physician Plastic Surgery 07/14/22 China Gee MD PhD [address] DIV IM MEDICAL ONCOLOGY, [address] [place] [address] Medical Oncologist/Foreign Policy Officer Medical Oncology 07/14/22 documented as of this encounter
--- OUTSIDE RECORDS SUMMARY | 2024-11-10 03:49 | XMS_ITS | Encounter Summary ---
Author Organization [facility] Address [address] [place] [address] Care Team Providers Care Policy Cancellation Clerk Name Role Phone Chan Daniel MD Primary Care Provider [phone] Chan Daniel MD Unavailable [phone] Reason for Referral * MRI/CAT/PET Scan (Routine) - Closed Specialty Diagnoses / Procedures Referred By Hernan coreas Referred To Contact Radiology Diagnoses Mass of muscle of right lower extremity Procedures MRI Knee Right W WO Contrast Myrtle Rivas MD [address] [place] [address] Phone: tel: fax: [address] [address] Referral ID Status Reason Start Date Expiration Date Visits Re quested Visits Authorized [id number] Closed 06/17/2022 06/17/2023 1 1 Reason for Visit * MRI/CAT/PET Scan (Routine) - Closed Specialty Diagnoses / Procedures Referred By Contac t Referred To Contact Radiology Diagnoses Mass of muscle of right lower extremity Procedures MRI Knee Right W WO Contrast Myrtle Rivas MD [address] [place] [address] Phone: tel: fax: [facility] [address] [facility] [place] [address] Referral ID Status Reason Start Date Expiration Date Visits Re quested Visits Authorized [id number] Closed 06/17/2022 06/17/2023 1 1 Encounter Details Date Type Department Care Team (Latest Contact Info) Description 07/11/2022 7:32 AM CDT - 07/11/2022 11:59 PM CDT Hospital Encounter [facility] Rad[facility] [address] [place] [address] Myrtle Rivas MD [address] [place] [address] Mass of muscle of right lower extremity Discharge Disposition: Discharge to home or self [...] chloride ER 20 mEq CR tablet 05/04/2022 Fcr-Ll-Zmmcqjev 0.18/0.215/0.25 mg-25 mcg per tablet 05/29/2022 triamterene-hydro CHLOROthiazide 37.5-25 mg per tablet 05/13/2022 documented as of this encounter Discharge Disposition Disposition Code Departure Means Destination Discharge to home or self care documented in this encounter Miscellaneous Notes * Result Encounter Note - Natalie Roy RN - 07/11/2022 11:59 PM CDT Referral placed. Thanks documented in this encounter Plan of Treatment Not on file documented as of this encounter Procedures Procedure Name Priority Date/Time Associated Diagnosis Comments MRI KNEE RIGHT W WO CONTRAST Schedule Routine, Read Routine (OP Routine) 07/11/2022 9:06 AM CDT Mass of muscle of right lower extremity documented in this encounter Results * MRI Knee Right [...] it. Electronically signed by: Abdiaziz Giang MD Narrative 07/11/2022 12:04 PM CDT EXAMINATION: 1. MRI [...] Diagnosis Mass of muscle of right lower extremity documented in this encounter Administered Medications Inactive Administered Medications - up to 3 most recent administrations Medication Order MAR Action Action Date Dose Rate Site gadoterate meglumine 0.5 mmol/mL injection 0.2 mL/kg 0.2 mL/kg, intravenous, Once in imaging, contrast, Starting on 07/11/22 at 0906, For 1 dose, Imaging Protocol Orders Contrast Given 07/11/2022 9:06 AM CDT 20 mL documented in this encounter Orders Medications Ordered That Baldomero ht Not Have Been Administered Count Last Ordered Date First Ordered Date gadoterate meglumine 0.5 mmo l/mL injection 0.2 mL/kg 1 07/11/2022 documented in this encounter Care Teams Policy Cancellation Clerk Relationship Specialty Start Date End Date Chan Daniel MD [address] [place] [address] PCP - General Internal Medicine 04/30/22 Chan Daniel MD [address] [place] [address] Referring Physician Internal Medicine 04/30/22 documented as of this encounter
--- OUTSIDE RECORDS SUMMARY | 2024-11-10 03:49 | XMS_ITS | Encounter Summary ---
Author Organization [facility] Address [address] [place] [address] Phone Care Team Providers Care Occupational Therapy Specialist Name Role Phone Chan Daniel MD Primary Care Provider + [phone] Chan Daniel MD Unavailable [phone] Myrtle Rivas MD Unavailable [phone] China Gee MD PhD Unavailable + Reason for Referral * Diagnostic Imaging (Routine) - Closed Specialty Diagnoses / Procedures Referred By Contac t Referred To Contact Radiology Diagnoses Neoplasm Procedures IR Biopsy Soft Tissue Mass Consult to Musculoskeletal Interventional Radiology China Gee MD PhD [address] [facility], [address] [place] [address] Phone: tel: fax: [address] [address] Referral ID Status Reason Start Date Expiration Date Visits Re quested Visits Authorized [id number] Closed 07/27/2022 08/26/2023 1 1 Reason for Visit * Oncology (Routine) - Closed Specialty Diagnoses / Procedures Referred By Contac t Referred To Contact Oncology Diagnoses Neoplasm Myrtle Rivas MD [address] [place] [address] Phone: tel: fax: China Gee MD PhD [address] [facility] [address] [place] [address] Phone: tel: fax: Referral ID Status Reason Start Date Expiration Date V isits Requested Visits Authorized [id number] Closed Specialty Services Required 07/14/2022 10/30/2023 99 99 Encounter Details Date Type Department Care Team (Late st Contact Info) Description 07/27/2022 2:00 PM CDT Office Visit [facility] Oncology [facility] 7th [place] [address] [place] [address] China Gee MD PhD [id number] [place] [address] Neoplasm Social History Tobacco Use Types Packs/Day Years Used Date Smoking Tobacco: Never Passive Smoke Exposure: Never Smokeless Tobacco: Never Tobacco Cessation:Counseling Given: Not Answered Comments Unknown Sex and Gender Information Value Date Recorded Sex Assigned at Not on file Legal Sex Female 4:01 PM CDT Gender Identity Not on file Sexual Orientation Not on file documented as of this encounter Last Filed Vital Signs Vital Sign Reading Time Taken Comments Blood Pressure 134/70 07/27/2022 1:34 PM CDT Pulse 77 07/27/2022 1:34 PM CDT Temperature 36.3 ??C (97.3 ??F) 07/27/2022 1:34 PM CD T Respiratory Rate 20 07/27/2022 1:34 PM CDT Oxygen Saturation 98% 07/27/2022 1:34 PM CDT Inhaled Oxygen Concentration - - Weight 115.8 kg (255 lb 6.4 oz) 07/27/2022 1:34 PM CDT Height 163 cm (5' 4.17 ) 07/27/2022 1:34 PM CDT Body Mass Index 43.6 07/27/2022 1:34 PM CDT documented in this encounter Progress Notes * China Gee MD PhD - 07/27/2022 2:00 PM CDT Mirna Thacker : 1975 TODAY'S DATE: 07/27/2022 Myrtle Rivas MD Oncology History Overview Note DIAGNOSIS: Knee Mass TREATMENT HISTORY: She presented with a right knee mass in summer 2021 MRI R Knee with and without contrast obtained on 07/11/22 demonstrated a 2.1x2.4x2.0cm mass with central necrosis 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 ECHO: HISTORY OF PRESENT ILLNESS Mirna Thacker is a 46 y.o. Non- female with a mass concerning for malignancy Past Medical History: Diagnosis Date ??? Hypertension Allergies Allergen Reactions ??? Penicillins Rash Current Outpatient Medications Medication Sig Dispense Refill ??? losartan (COZAAR) 100 mg tablet ??? Rod-Ye-Ighnyopw 0.18/0.215/0.25 mg-25 mcg per tablet ??? triamterene-hydroCHLOROthiazide 37.5-25 mg per tablet ??? ACETAMINOPHEN ORAL Take by mouth (Patient not taking: Reported on 07/27/2022) ??? multivitamin capsule Take 1 capsule by mouth daily (Patient not taking: Reported on 07/27/2022) ??? potassium chloride ER 20 mEq CR tablet (Patient not taking: Reported on 07/27/2022) No current facility-administered medications for this visit. Social History Tobacco Use ??? Smoking status: Never Passive exposure: Never ??? Smokeless tobacco: Never Substance and Sexual Activity ??? Drug use: Never ??? Sexual activity: Defer Alcohol Use: Not on file Alcohol Use: Not on file Substance and Sexual Activity Drug Use Never Social History Tobacco Use Smoking Status Never ??? Passive exposure: Never Smokeless Tobacco Never Cancer-related family history is not on file. Family History Problem Relation Age of Onset ??? Hypertension Mother ??? Hypertension Father ??? No Known Problems Brother ??? No Known Problems Maternal Grandmother ??? No Known Problems Maternal Grandfather ??? No Known Problems Paternal Grandmother ??? No Known Problems Paternal Grandfather REVIEW OF SYSTEMS: Review of Systems Constitutional: Negative. HENT: Negative. Eyes: Negative. Respiratory: Negative. Cardiovascular: Negative. Gastrointestinal: Negative. Endocrine: Negative. Genitourinary: Negative. Musculoskeletal: Leg pain Skin: Negative. Allergic/Immunologic: Negative. Neurological: Negative. Hematological: Negative. Psychiatric/Behavioral: The patient is nervous/anxious. Breast: Negative. VITALS SIGNS: Vitals: 07/27/22 1334 BP: 134/70 BP Location: Left arm Pulse: 77 Resp: 20 Temp: 36.3 ??C (97.3 ??F) TempSrc: Transdermal SpO2: 98% Weight: 115.8 kg (255 lb 6.4 oz) Height: 163 cm (5' 4.17 ) PHYSICAL EXAMINATION: Performance Status: ECOG 0. Physical Exam HENT: Head: Normocephalic and atraumatic. Eyes: Pupils: Pupils are equal, round, and reactive to light. Cardiovascular: Rate and Rhythm: Normal rate and regular rhythm. Pulses: Normal pulses. Heart sounds: Normal heart sounds. Pulmonary: Effort: Pulmonary effort is normal. Breath sounds: Normal breath sounds. Abdominal: General: Bowel sounds are normal. Palpations: Abdomen is soft. Musculoskeletal: General: Normal range of motion. Skin: General: Skin is warm and dry. Neurological: General: No focal deficit present. Mental Status: She is alert. Psychiatric: Mood and Affect: Mood normal. Behavior: Behavior normal. LABORATORY: No results found for this or any previous visit (from the past 24 hour(s)). ASSESSMENT AND PLAN: In summary, Mirna Thacker is a 46 y.o. Non- female with a newly diagnosed leg mass here todiscuss further workup and treatment. Based on MRI, there is concern for a malignant tumor arising from a peripheral nerve. We will obtain a biopsy and PET scan for staging. We will discuss her case in tumor board when we have all of the results and plan to call her with a definitive plan--hopefully within the next two weeks. documented in this encounter Plan of Treatment Not on file documented as of this encounter Results * IR Biopsy Soft [...] was obtained. ??Prior to beginning the procedure, Webb Protocol was performed to confirm the patient's [...] was obtained. Prior to beginning the procedure, Webb Protocol was performed to confirm the patient's [...] Electronically signed by: Gold Thorpe MD, PHD us China Gee MD PhD IMG IR PROCEDURES Final Result * (ABNORMAL) Comprehensive metabolic panel (07/27/2022 2:58 PM CDT) Sodium 139 135 - 145 mmol/L CERNER BJ Comment:Testing performed by : [facility], [address] [place] [phone] Potassium, pl 4.2 3.3 - 4.9 mmol/L CERNER BJ Comment:Testing performed by : [facility], [address] [place] [phone] Chloride 101 97 - 110 mmol/L CERNER BJ Comment:Testing performed by : [facility], [address] [place] [phone] CO2 30 22 - 32 mmol/L CERNER BJ Comment:Testing performed by : [facility], [address] [place] [phone] Anion gap 8 2 - 15 mmol/L CERNER BJ Comment:Testing performed by : [facility], [address] [place] [phone] BUN 18 8 - 25 mg/dL CERNER BJ Comment:Testing performed by : [facility], [address] [place] [phone] Creatinine 0.58(L) 0.60 - 1.10 mg/dL CERNER BJ Comment:Testing performed by : [facility], [address] [place] [phone] Glucose 116 70 - 199 mg/dL CERNER [...] was last revised 2017. Testing performed by: [facility], [address] [place] [phone] Calcium 9.8 8.5 - 10.3 mg/dL [facility] Comment:Testing performed by : [facility], [address] [place] [phone] Bilirubin, total 0.3 0.1 - 1.2 mg/dL [facility] Comment:Testing performed by : [facility], [address] [place] [phone] Protein, pl 8.1 6.5 - 8.5 g/dL [facility] Comment:Testing performed by : [facility], [address] [place] [phone] Albumin 4.5 3.5 - 5.0 g/dL [facility] Comment:Testing performed by : [facility], [address] [place] [phone] Alk phos 89 40 - 130 Units/L [facility] Comment:Testing performed by : [facility], [address] [place] [phone] ALT <5(L) 7 - 45 Units/L [facility] Comment:Testing performed by : [facility], [address] [place] [phone] AST 14 10 - 45 Units/L [facility] Comment:Testing performed by : [facility], [address] [place] [phone] Blood 07/27/2022 2:58 PM CDT 07/27/2022 3:01 PM CDT us China Gee MD PhD LAB BLOOD ORDERABL ES Final Result [facility] [place] [address] * (ABNORMAL) CBC with auto differential (07/27/2022 2:58 PM CDT) WBC 11.7(H) 3.8 - 9.8 K/cumm [facility] Comment:Testing performed by : [facility], [address] [place] [phone] Hgb 13.6 12.1 - 15.1 g/dL [facility] Comment:Testing performed by : [facility], [address] [place], [place] [id number] Hct 40.4 36.1 - 44.3 % CERARELI BJ Comment:Testing performed by : [facility], [address] [place], [place] [id number] Plt 443(H) 140 - 440 K/cumm CERARELI GUERRERO Comment:Testing performed by : [place] [id number] MPV 7.5 6.8 - 10.4 fL CERARELI BJ Comment:Testing performed by : [place] [address] RBC 4.40 3.90 - 5.00 M/cumm [facility] Comment:Testing performed by : [place] [address] MCV 91.8 80.0 - 97.6 fL [facility] Comment:Testing performed by : [place] [id number] MCH 30.9 26.7 - 33.7 pg [facility] Comment:Testing performed by : [place] [id number] MCHC 33.7 32.7 - 35.5 g/dL [facility] Comment:Testing performed by : [place] [id number] RDW CV 13.4 11.8 - 14.6 % [facility] Comment:Testing performed by : [place] [id number] NRBC abs 0.00 0.00 - 0.01 K/cumm [facility] Comment:Testing performed by : [place] [id number] Blood 07/27/2022 2:58 PM CDT 07/27/2022 3:01 PM CDT us China Gee MD PhD LAB BLOOD ORDERABL ES Final Result [facility] One [facility] [place] [address] documented in this encounter Visit Diagnoses Diagnosis Neoplasm Neoplasm of unspecified nature, site unspecified Neoplasm Neoplasm of unspecified nature, site unspecified documented in this encounter Orders Lab Orders Without Results Count Last Ordered D ate First Ordered Date ONCBCN STUDY LAB 1 1 07/27/2022 Outpatient Referral Count Last Ordered Date Fir st Ordered Date AMB REFERRAL TO ONCOLOGY 1 07/27/2022 Appointment Requests Count Last Ordered Date Fi rst Ordered Date ONCBCN LAB APPOINTMENT 1 07/27/2022 documented in this encounter Care Teams Occupational Therapy Specialist Relationship Specialty Start Date End Date Chan Daniel MD [address] [place] [address] PCP - General Internal Medicine 04/30/22 Chan Daniel MD [address] [place] [address] Referring Physician Internal Medicine 04/30/22 Myrtle Rivas MD [address] [facility] [address] [place] [address] Referring Physician Plastic Surgery 07/14/22 China Gee MD PhD [address] DIV IM MEDICAL ONCOLOGY, [address], [address] [place] [address] Medical Oncologist/[employer] Medical Oncology 07/14/22 documented as of this encounter
--- OUTSIDE RECORDS SUMMARY | 2024-11-10 03:49 | XMS_ITS | Encounter Summary ---
Author Organization [facility] Address [address] [place] [address] Phone Care Team Providers Care Auger Mill Operator Name Role Phone Chan Daniel MD Primary Care Provider [phone] Chan Daniel MD Unavailable [phone] Encounter Details Date Type Department Care Team (Late st Contact Info) Description 04/30/2022 Telephone [facility] Surgery [address] [facility] 6th [place] [address] [place] [address] Natalie Roy RN Social History [...] Telephone Encounter - Natalie Roy RN - 05/05/2022 10:51 AM CDT Ultrasound on 06/10/22 @ 7:45 am, arrive 7:15, 3rd floor CAM. CF to reschedule FELIBERTO appointment to follow. * Telephone Encounter - Natalie Roy RN - 04/30/2022 4:37 PM CDT Call to schedule US, left message to return call. documented in this encounter Plan of Treatment Not on file documented as of this encounter Visit Diagnoses Not on filedocumented in this encounter Care Teams Auger Mill Operator Relationship Specialty Start Date End Date Chan Daniel MD [address] [place] [address] PCP - General Internal Medicine 04/30/22 Chan Daniel MD [address] [place] [address] Referring Physician Internal Medicine 04/30/22 documented as of this encounter
--- OUTSIDE RECORDS SUMMARY | 2024-11-10 03:49 | XMS_ITS | Encounter Summary ---
Author Organization [facility] Address [address] [place] [address] Care Team Providers Care Milling Supervisor Name Role Phone Chan Daniel MD Primary Care Provider [phone] Chan Daniel MD Unavailable [phone] Reason for Referral * Diagnostic Imaging (Routine) - Closed Specialty Diagnoses / Procedures Referred By Hernan coreas Referred To Contact Diagnoses Mass of right knee Procedures US Lower Extremity Right Limited Myrtle Rivas MD [address] [place] [address] Phone: tel: fax: [address] [address] Referral ID Status Reason Start Date Expiration Date Visits Re quested Visits Authorized [id number] Closed 05/05/2022 06/04/2023 1 1 Reason for Visit * Diagnostic Imaging (Routine) - Closed Specialty Diagnoses / Procedures Referred By Hernan coreas Referred To Contact Diagnoses Mass of right knee Procedures US Lower Extremity Right Limited Myrtle Rivas MD [address] [place] [address] Phone: tel: fax: [address] [place] [address] Referral ID Status Reason Start Date Expiration Date Visits Re quested Visits Authorized [id number] Closed 05/05/2022 06/04/2023 1 1 Encounter Details Date Type Department Care Team (Latest Contact Info) Description 06/10/2022 7:16 AM CDT - 06/10/2022 11:59 PM CDT Hospital Encounter [facility] [address] [place] [address] Mass of right knee Discharge Disposition: Discharge to home or self [...] chloride ER 20 mEq CR tablet 05/04/2022 Zeq-Lc-Ndeaajbu 0.18/0.215/0.25 mg-25 mcg per tablet 05/29/2022 triamterene-hydro CHLOROthiazide 37.5-25 mg per tablet 05/13/2022 documented as of this encounter Discharge Disposition Disposition Code Departure Means Destination Discharge to home or self care documented in this encounter Plan of Treatment Not on file documented as of this encounter Procedures Procedure Name Priority Date/Time Associated Diagnosis Comments US LOWER EXTREMITY RIGHT LIMITED Schedule Routine, Read Routine (OP Routine) 06/10/2022 8:17 AM CDT Mass of right knee documented in this encounter Results * US Lower Extremity Right Limited (06/10/2022 8:17 AM CDT) Anatomical Region Laterality Modality Lower Extremities Right Ultrasound 06/10/2022 12:1 8 PM CDT Impressions 06/10/2022 12:18 PM CDT Heterogeneous hypoechoic solid lesion in the popliteal fossa, the tibial nerve is posterior indicating this is an eccentric lesion and almost certainly represents a nerve tumor. ??Given the eccentricity, schwannoma is likely. Electronically signed by: Yvonne Bay M.D. Narrative 06/10/2022 12:18 PM CDT EXAMINATION: Ultrasound lower extremity right limited HISTORY: 46-year-old female with an incidentally found mass in the right popliteal fossa. ??The patient had an outside MR; results unavailable. FINDINGS: In the right popliteal fossa at to slightly above the level of the joint is a slightly heterogeneous hypoechoic solid lesion that measures 2.0 x 2.0 x 2.7 cm. ??There is predominantly peripheral and minimal internal color Doppler flow. ??The tibial nerve was very difficult to identify due to the patient's body habitus but runs posterior to the lesion which is eccentric to the nerve. ?? Procedure Note Yvonne Bay MD - 06/10/2022 EXAMINATION: Ultrasound lower extremity right limited HISTORY: 46-year-old female with an incidentally found mass in the right popliteal fossa. The patient had an outside MR; results unavailable. FINDINGS: In the right popliteal fossa at to slightly above the level of the joint is a slightly heterogeneous hypoechoic solid lesion that measures 2.0 x 2.0 x 2.7 cm. There is predominantly peripheral and minimal internal color Doppler flow. The tibial nerve was very difficult to identify due to the patient's body habitus but runs posterior to the lesion which is eccentric to the nerve. IMPRESSION: Heterogeneous hypoechoic solid lesion in the popliteal fossa, the tibial nerve is posterior indicating this is an eccentric lesion and almost certainly represents a nerve tumor. Given the eccentricity, schwannoma is likely. Electronically signed by: Yvonne Bay M.D. us Myrtle Rivas MD IM US PROCEDURES Final Re sult documented in this encounter Visit Diagnoses Diagnosis Mass of right knee documented in this encounter Care Teams Milling Supervisor Relationship Specialty Start Date End Date Chan Daniel MD [address] [place] [address] PCP - General Internal Medicine 04/30/22 Chan Daniel MD [address] [place] [address] Referring Physician Internal Medicine 04/30/22 documented as of this encounter
--- OUTSIDE RECORDS SUMMARY | 2024-11-10 04:10 | XMS_ITS | Encounter Summary ---
Author Organization [facility] Address [address] [place] [address] Phone Care Team Providers Care Tour Coordinator Name Role Phone Chan Daniel MD Primary Care Provider + [phone] Chan Daniel MD Unavailable [phone] Myrtle Rivas MD Unavailable [phone] Nestor Gee MD PhD Unavailable + Reason for Referral * Oncology (Routine) - Closed Specialty Diagnoses / Procedures Referred By Contac t Referred To Contact Oncology Diagnoses Neoplasm Myrtle Rivas MD [address] [place] [address] Phone: tel: fax: Nestor Gee MD PhD [phone] [facility] [address] [place] [address] Phone: tel: fax: Referral ID Status Reason Start Date Expiration Date V isits Requested Visits Authorized [id number] Closed Specialty Services Required 07/14/2022 10/30/2023 99 99 Question Answer Please select the performing region: [facility] (All Locations) [[id number]] Please select the performing department: [facility] 7 [[id number]] Is this referral for Breast Health Multi-Disciplinary Clinic? No To provider: NESTOR GEE [[id number]] # of visits: 1 Comments Popliteal mass Encounter Details Date Type Department Care Team (Late st Contact Info) Description 07/14/2022 Orders Only [facility] Surgery [address] [facility] 6th [place] [address] [place] [address] Myrtle Rivas MD [address] [place], [place] [address] Neoplasm (Primary Dx) Social History Tobacco Use [...] unspecified documented in this encounter Care Teams Tour Coordinator Relationship Specialty Start Date End Date Chan Daniel MD [address] [place] [address] PCP - General Internal Medicine 04/30/22 Chan Daniel MD [address] [place] [address] Referring Physician Internal Medicine 04/30/22 Myrtle Rivas MD [address] [place] [address] Referring Physician Plastic Surgery 07/14/22 Nestor Gee MD PhD [address] [facility] DIV IM MEDICAL ONCOLOGY, [address] [place] [address] Medical Oncologist/Anglesmith Helper Medical Oncology 07/14/22 documented as of this encounter
--- OUTSIDE RECORDS SUMMARY | 2024-11-10 04:10 | XMS_ITS | Encounter Summary ---
Author Organization [facility] Address [address] [place] [address] Phone Care Team Providers Care Chief Meter Reader Name Role Phone Chan Daniel MD Primary Care Provider + [phone] Chan Daniel MD Unavailable [phone] Myrtle Rivas MD Unavailable [phone] China Gee MD PhD Unavailable + Encounter Details Date Type Department Care Team (Late st Contact Info) Description 07/27/2022 3:00 PM CDT Lab [facility] Oncology [facility] 7th [place] [address] [place] [address] Neoplasm Social History Tobacco Use [...] 07/27/2022 documented in this encounter Care Teams Chief Meter Reader Relationship Specialty Start Date End Date Chan Daniel MD [address] [place] [address] PCP - General Internal Medicine 04/30/22 Chan Daniel MD [address] [place] [address] Referring Physician Internal Medicine 04/30/22 Myrtle Rivas MD [address] [facility] [address] [place] [address] Referring Physician Plastic Surgery 07/14/22 China Gee MD PhD [address] DIV IM MEDICAL ONCOLOGY, [address] [place] [address] Medical Oncologist/Core Blower Operator Medical Oncology 07/14/22 documented as of this encounter
--- OUTSIDE RECORDS SUMMARY | 2024-11-10 04:10 | XMS_ITS | Encounter Summary ---
Author Organization [facility] Address [address] [place] [address] Phone Care Team Providers Care Campaign Assistant Name Role Phone Chan Daniel MD Primary Care Provider + [phone] Chan Daniel MD Unavailable [phone] Myrtle Rivas MD Unavailable [phone] China Gee MD PhD Unavailable + Encounter Details Date Type Department Care Team (Late st Contact Info) Description 07/14/2022 Telephone [facility] Surgery [address] [facility] 6th [place] [address] [place] [address] Ashley Mojica M.A. Social History [...] on filedocumented in this encounter Care Teams Campaign Assistant Relationship Specialty Start Date End Date Chan Daniel MD [address] [place] [address] PCP - General Internal Medicine 04/30/22 Chan Daniel MD [address] [place] [address] Referring Physician Internal Medicine 04/30/22 Myrtle Rivas MD [address] [facility] [address] [place] [address] Referring Physician Plastic Surgery 07/14/22 China Gee MD PhD [address] DIV IM MEDICAL ONCOLOGY, [address] [place] [address] Medical Oncologist/Junior Accountant Bookkeeper Medical Oncology 07/14/22 documented as of this encounter
--- OUTSIDE RECORDS SUMMARY | 2024-11-10 04:10 | XMS_ITS | Encounter Summary ---
Author Organization [facility] Address [address] [place] [address] Phone Care Team Providers Care Customer Success Director Name Role Phone Chan Daniel MD Primary Care Provider [phone] Chan Daniel MD Unavailable [phone] Encounter Details Date Type Department Care Team (Late st Contact Info) Description 06/10/2022 Telephone [facility] Surgery [address] [facility] 6th [place] [address] [place] [address] Natalie Roy RN Social History [...] on filedocumented in this encounter Care Teams Customer Success Director Relationship Specialty Start Date End Date Chan Daniel MD [address] [place] [address] PCP - General Internal Medicine 04/30/22 Chan Daniel MD [address] [place] [address] Referring Physician Internal Medicine 04/30/22 documented as of this encounter
--- OUTSIDE RECORDS SUMMARY | 2024-11-10 04:10 | XMS_ITS | Encounter Summary ---
Author Organization [facility] Address [address] [place] [address] Phone Care Team Providers Care Intellectual Property Legal Assistant Name Role Phone Chan Daniel MD Primary Care Provider [phone] Chan Daniel MD Unavailable [phone] Encounter Details Date Type Department Care Team (Late st Contact Info) Description 04/30/2022 Telephone [facility] Surgery [address] [facility] 6th [place] [address] [place] [address] Natalie Roy RN Social History [...] on filedocumented in this encounter Care Teams Intellectual Property Legal Assistant Relationship Specialty Start Date End Date Chan Daniel MD [address] [place] [address] PCP - General Internal Medicine 04/30/22 Chan Daniel MD [address] [place] [address] Referring Physician Internal Medicine 04/30/22 documented as of this encounter
--- OUTSIDE RECORDS SUMMARY | 2024-11-10 04:10 | XMS_ITS | Encounter Summary ---
Author Organization [facility] Healthcare Address [address] [place] [address] Care Team Providers Care Wedger And Gluer Name Role Phone Chan Daniel MD Primary Care Provider [phone] Chan Daniel MD Unavailable [phone] Reason for Referral * Diagnostic Imaging (Routine) - Closed Specialty Diagnoses / Procedures Referred By Hernan coreas Referred To Contact Diagnoses Mass of right knee Procedures US Lower Extremity Right Limited Myrtle Rivas MD [address] [place] [address] Phone: tel: fax: [address] [address] Referral ID Status Reason Start Date Expiration Date Visits Re quested Visits Authorized [id number] Closed 05/05/2022 06/04/2023 1 1 Reason for Visit * Diagnostic Imaging (Routine) - Closed Specialty Diagnoses / Procedures Referred By Hernan coreas Referred To Contact Diagnoses Mass of right knee Procedures US Lower Extremity Right Limited Myrtle Rivas MD [address] [place] [address] Phone: tel: fax: [address] [place] [address] Referral ID Status Reason Start Date Expiration Date Visits Re quested Visits Authorized [id number] Closed 05/05/2022 06/04/2023 1 1 Encounter Details Date Type Department Care Team (Latest Contact Info) Description 06/10/2022 7:16 AM CDT - 06/10/2022 11:59 PM CDT Hospital Encounter [facility] [address] [place] [id number] Mass of right knee Discharge Disposition: Discharge [...] chloride ER 20 mEq CR tablet 05/04/2022 Pcc-Wi-Hxhxwins 0.18/0.215/0.25 mg-25 mcg per tablet 05/29/2022 triamterene-hydro [...] knee documented in this encounter Care Teams Wedger And Gluer Relationship Specialty Start Date End Date Chan Dainel MD [address] [place] [address] PCP - General Internal Medicine 04/30/22 Chan Daniel MD [address] [place] [address] Referring Physician Internal Medicine 04/30/22 documented as of this encounter
--- OUTSIDE RECORDS SUMMARY | 2024-11-10 04:10 | XMS_ITS | Encounter Summary ---
Author Organization [facility] Address [address] [place] [address] Phone Care Team Providers Care Addiction Specialist Name Role Phone Chan Daniel MD Primary Care Provider [phone] Chan Daniel MD Unavailable [phone] Myrtle Rivas MD Unavailable [phone] China Gee MD PhD Unavailable + Reason for Referral * Diagnostic Imaging (Routine) - Closed Specialty Diagnoses / Procedures Referred By Contac t Referred To Contact Radiology Diagnoses Neoplasm Procedures IR Biopsy Soft Tissue Mass Consult to Musculoskeletal Interventional Radiology China Gee MD PhD [address] [facility], [address], [address], [address] [place] [address] Phone: tel: fax: [address] [address] Referral ID Status Reason Start Date Expiration Date Visits Re quested Visits Authorized [id number] Closed 07/27/2022 08/26/2023 1 1 Reason for Visit * Oncology (Routine) - Closed Specialty Diagnoses / Procedures Referred By Contac t Referred To Contact Oncology Diagnoses Neoplasm Myrtle Rivas MD [address] [place] [address] Phone: tel: fax: China Gee MD PhD [address] [facility] [address] [place] [address] Phone: tel: fax: Referral ID Status Reason Start Date Expiration Date V isits Requested Visits Authorized [id number] Closed Specialty Services Required 07/14/2022 10/30/2023 99 99 Encounter Details Date Type Department Care Team (Late st Contact Info) Description 07/27/2022 2:00 PM CDT Office Visit [facility] Oncology [facility] 7th [place] [address] [place] [address] China Gee MD PhD [id number] [place] [address] Neoplasm Social History Tobacco Use [...] ??? losartan (COZAAR) 100 mg tablet ??? Ezj-Xb-Tmtbhodq 0.18/0.215/0.25 mg-25 mcg per tablet ??? triamterene-hydroCHLOROthiazide [...] was obtained. ??Prior to beginning the procedure, [place] Protocol was performed to confirm the patient's [...] was obtained. Prior to beginning the procedure, [place] Protocol was performed to confirm the patient's [...] sent to surgical pathology. Dictated by: Ronny Torers M.D. The radiology attending physician has personally reviewed this study, and had reviewed and/or edited this written report and agrees with it. Electronically signed by: Gold Thorpe MD, PHD us China Gee MD PhD IMG IR PROCEDURES Final Result * (ABNORMAL) Comprehensive metabolic panel (07/27/2022 2:58 PM CDT) Sodium 139 135 - 145 mmol/L CERNER BJ Comment:Testing performed by : [facility], [address] [place] [phone] Potassium, pl 4.2 3.3 - 4.9 mmol/L CERNER BJ Comment:Testing performed by : [facility], [address] [place] [phone] Chloride 101 97 - 110 mmol/L CERNER BJ Comment:Testing performed by : [facility], [address] [place] [phone] CO2 30 22 - 32 mmol/L CERNER BJ Comment:Testing performed by : [facility], [address] [place] [phone] Anion gap 8 2 - 15 mmol/L CERNER BJ Comment:Testing performed by : [facility], [address] [place] [phone] BUN 18 8 - 25 mg/dL CERNER BJ Comment:Testing performed by : [facility], [address] [place] [phone] Creatinine 0.58(L) 0.60 - 1.10 mg/dL CERNER BJ Comment:Testing performed by : [facility], [address] [place] [phone] Glucose 116 70 - 199 mg/dL CERNER [...] was last revised 2017. Testing performed by: [facility], [address] [place] [phone] Calcium 9.8 8.5 - 10.3 mg/dL [facility] Comment:Testing performed by : [facility], [address] [place] [phone] Bilirubin, total 0.3 0.1 - 1.2 mg/dL [facility] Comment:Testing performed by : [facility], [address] [place] [phone] Protein, pl 8.1 6.5 - 8.5 g/dL [facility] Comment:Testing performed by : [facility], [address] [place] [phone] Albumin 4.5 3.5 - 5.0 g/dL [facility] Comment:Testing performed by : [facility], [address] [place] [phone] Alk phos 89 40 - 130 Units/L [facility] Comment:Testing performed by : [facility], [address] [place] [phone] ALT <5(L) 7 - 45 Units/L [facility] Comment:Testing performed by : [facility], [address] [place] [phone] AST 14 10 - 45 Units/L [facility] Comment:Testing performed by : [facility], [address] [place] [phone] Blood 07/27/2022 2:58 PM CDT 07/27/2022 3:01 PM CDT us China Gee MD PhD LAB BLOOD ORDERABL ES Final Result [facility] One [facility] Department [place] [address] * (ABNORMAL) CBC with auto differential (07/27/2022 2:58 PM CDT) WBC 11.7(H) 3.8 - 9.8 K/cumm [facility] Comment:Testing performed by : [facility], [address] [place] [phone] Hgb 13.6 12.1 - 15.1 g/dL [facility] Comment:Testing performed by : [facility], [address] [place], [place] [phone] Hct 40.4 36.1 - 44.3 % CERARELI BJ Comment:Testing performed by : [facility], [address] [place], [place] [phone] Plt 443(H) 140 - 440 K/cumm CERARELI GUERRERO Comment:Testing performed by : [place] [phone] MPV 7.5 6.8 - 10.4 fL CERARELI BJ Comment:Testing performed by : [place] [address] RBC 4.40 3.90 - 5.00 M/cumm RILEY GUERRERO Comment:Testing performed by : [place] [address] MCV 91.8 80.0 - 97.6 fL [facility] Comment:Testing performed by : [place] [phone] MCH 30.9 26.7 - 33.7 pg CERARELI [facility] Comment:Testing performed by : [place] [phone] MCHC 33.7 32.7 - 35.5 g/dL [facility] Comment:Testing performed by : [place] [phone] RDW CV 13.4 11.8 - 14.6 % [facility] Comment:Testing performed by : [place] [id number] NRBC abs 0.00 0.00 - 0.01 K/cumm [facility] Comment:Testing performed by : [place] [id number] Blood 07/27/2022 2:58 PM CDT 07/27/2022 3:01 PM CDT us China Gee MD PhD LAB BLOOD ORDERABL ES Final Result [facility] One [facility] Department [place] [address] documented in this encounter Visit Diagnoses Diagnosis [...] 07/27/2022 documented in this encounter Care Teams Addiction Specialist Relationship Specialty Start Date End Date Chan Daniel MD [address] [place] [address] PCP - General Internal Medicine 04/30/22 Chan Daniel MD [address] [place] [address] Referring Physician Internal Medicine 04/30/22 Myrtle Rivas MD [address] [facility] [address] [place] [address] Referring Physician Plastic Surgery 07/14/22 China Gee MD PhD [address] DIV IM MEDICAL ONCOLOGY, [address], [address], [address] [place] [address] Medical Oncologist/Building And Construction Manager Medical Oncology 07/14/22 documented as of this encounter
--- OUTSIDE RECORDS SUMMARY | 2024-11-10 04:10 | XMS_ITS | Encounter Summary ---
Author Organization [facility] Address [address] [place] [address] Phone Care Team Providers Care Energy Professional Name Role Phone Chan Daniel MD Primary Care Provider [phone] Chan Daniel MD Unavailable [phone] Encounter Details Date Type Department Care Team (Late st Contact Info) Description 05/05/2022 Telephone [facility] Surgery [address] [facility] 6th [place] [address] [place] [address] Ashley Mojica M.A. Social History [...] on filedocumented in this encounter Care Teams Energy Professional Relationship Specialty Start Date End Date Chan Daniel MD [address] [place] [address] PCP - General Internal Medicine 04/30/22 Chan Daniel MD [address] [place] [address] Referring Physician Internal Medicine 04/30/22 documented as of this encounter
--- OUTSIDE RECORDS SUMMARY | 2024-11-10 04:10 | XMS_ITS | Encounter Summary ---
Author Organization [facility] Address [address] [place] [address] Phone Care Team Providers Care Retort Unloader Name Role Phone Chan Daniel MD Primary Care Provider [phone] Chan Daniel MD Unavailable [phone] Encounter Details Date Type Department Care Team (Late st Contact Info) Description 04/30/2022 Telephone [facility] Surgery [address] [facility] 6th [place] [address] [place] [address] Ashley Mojica M.A. Social History [...] on filedocumented in this encounter Care Teams Retort Unloader Relationship Specialty Start Date End Date Chan Daniel MD [address] [place] [address] PCP - General Internal Medicine 04/30/22 Chan Daniel MD [address] [place] [address] Referring Physician Internal Medicine 04/30/22 documented as of this encounter
--- OUTSIDE RECORDS SUMMARY | 2024-11-10 04:10 | XMS_ITS | Encounter Summary ---
Author Organization [facility] Address [address] [place] [address] Phone Care Team Providers Care In House Cra Name Role Phone Chan Daniel MD Primary Care Provider [phone] Chan Daniel MD Unavailable [phone] Myrtle Rivas MD Unavailable [phone] China Gee MD PhD Unavailable + Encounter Details Date Type Department Care Team (Late st Contact Info) Description 08/17/2022 Orders Only [facility] Oncology [address] [facility] 7th [place] [address] [place] [address] Jose Armando Carrillo, JASPREET [address] [place] [address] Benign schwannoma (Primary Dx) Social History Tobacco [...] Primary documented in this encounter Care Teams In House Cra Relationship Specialty Start Date End Date Chan Daniel MD [address] [place] [address] PCP - General Internal Medicine 04/30/22 Chan Daniel MD [address] [place] [address] Referring Physician Internal Medicine 04/30/22 Myrtle Rivas MD [address] [facility] [address] [place] [address] Referring Physician Plastic Surgery 07/14/22 China Gee MD PhD [address] [facility] [address] DIV IM MEDICAL ONCOLOGY, [address], [address]B, [address] [place] [address] Medical Oncologist/Concrete Placement Equipment Operator Medical Oncology 07/14/22 documented as of this encounter
--- OUTSIDE RECORDS SUMMARY | 2024-11-10 04:10 | XMS_ITS | Encounter Summary ---
Author Organization [facility] Address [address] [place] [address]. [place] [address] [place] [address] Care Team Providers Care Formulator Compounder Name Role Phone Unavailable Primary Care Provider Unavailabl e Encounter Details Date Type Department Care Team (Late st Contact Info) Description 11/23/2013 [facility] [address] [place] [address] , Raven Garza MD Social History Tobacco [...]
--- OUTSIDE RECORDS SUMMARY | 2024-11-10 04:10 | XMS_ITS | Encounter Summary ---
Author Organization [facility] Healthcare Address [address] [place] [address] Care Team Providers Care Icu Clerk Name Role Phone Chan Daniel MD Primary Care Provider [phone] Chan Daniel MD Unavailable [phone] Myrtle Rivas MD Unavailable [phone] China Gee MD PhD Unavailable + Reason for Referral * Diagnostic Imaging (Routine) - Closed Specialty Diagnoses / Procedures Referred By Contac t Referred To Contact Radiology Diagnoses Neoplasm Procedures IR Biopsy Soft Tissue Mass Consult to Musculoskeletal Interventional Radiology China Gee MD PhD [address] DIV MEDICAL ONCOLOGY, [address], [address], [address] [place] [address] Phone: tel: fax: [facility] [address] [place] [address] Referral ID Status Reason Start Date Expiration Date Visits Re quested Visits Authorized [id number] Closed 07/27/2022 08/26/2023 1 1 Reason for Visit * Diagnostic Imaging (Routine) - Closed Specialty Diagnoses / Procedures Referred By Contac t Referred To Contact Radiology Diagnoses Neoplasm Procedures IR Biopsy Soft Tissue Mass Consult to Musculoskeletal Interventional Radiology China Gee MD PhD [address] [facility] DIV IM MEDICAL ONCOLOGY, [address], [address], [address] [place] [address] Phone: tel: fax: [facility] [address] [place] [address] Referral ID Status Reason Start Date Expiration Date Visits Re quested Visits Authorized [id number] Closed 07/27/2022 08/26/2023 1 1 Encounter Details Date Type Department Care Team (Late st Contact Info) Description 08/09/2022 11:36 AM CDT - 08/09/2022 11:59 PM CDT Hospital Encounter [facility] Radiology [address] [place], [place] [id number] Gold Thorpe MD PhD [address] [facility] [address] [place], [place] [id number] Neoplasm Discharge Disposition: Discharge to home or [...] Torres MD - 08/09/2022 1:57 PM CDT .[facility] Radiology Outpatient Discharge Instructions/Note Diagnosis: The encounter [...] Follow up care: [] Follow up with [facility] Radiology in 1 week with XRs on same day, prior to appointment. Nurse Coordinators will call to schedule the appointment. Please come to: [] 3rd Floor [facility] [] 10th floor [facility] [] [facility] [] [facility] To contact an [facility] Radiology at [facility] or [facility] call [phone] Tuesday through Tuesday from 7:30am-4:30pm. After hours emergencies, please contact: [phone]. Questions: During regular office hours, call your referring physician. Special instructions: Please call [facility] Radiology for any procedure related questions or problems including: Extreme swelling or bruising at the site. Unusual drainage or bleeding from procedure site. Fever of 101.5 F for more than 24 hours. Procedure related pain. If vomiting occurs more than 3 times, contact the vice president for philanthropy automation consultant at [phone] within 24 hours after surgery. Contact your [...] chloride ER 20 mEq CR tablet 05/04/2022 Zjs-Wj-Yfcwcdej 0.18/0.215/0.25 mg-25 mcg per tablet 05/29/2022 triamterene-hydro CHLOROthiazide 37.5-25 mg per tablet 05/13/2022 documented as of this encounter Discharge Disposition Disposition Code Departure Means Destination Discharge to home or self care documented in this encounter Miscellaneous Notes * Post-Procedure Note - Ronny Torres MD - 08/09/2022 1:00 PM CDT Radiology Brief Post Procedure Note Attending: Gold Thorpe Interactive Web Developer: Ronny Torres Sedation/Anesthesia: Min Sedation Pre-Op/Pre-Procedure Diagnosis: Right [...] been discussed with the patient and/or their liability claims representative. All questions answered and they agree [...] was obtained. ??Prior to beginning the procedure, [place] Protocol was performed to confirm the patient's [...] was obtained. Prior to beginning the procedure, [place] Protocol was performed to confirm the patient's [...] Soft Tiss ue Mass Biopsy Narrative PATHOLOGY [facility] - 08/12/2022 2:12 PM CDT EPIC results best viewed via link to PDF [facility] [place] [address] Note to Patients: This report may contain [...] Gender: ??F : ??1975 (Age: 46) Address: ??[address] [place] [address] ??[address] Hospital #: ??[id number] Taken:08/09/2022 Received:08/09/2022 Reported: 08/12/2022 Patient Type: [facility] [...] Surgical Pathology and Flow Cytometry Departments at [facility] as part of an ongoing quality liaison program and in compliance with federally mandated [...] Surgical Pathology and Flow Cytometry Departments of [facility]. ??It has not been cleared or approved by the U. S. Food and Drug Administration. IMAGES AND SCANNED DOCUMENTS, IF INCLUDED, ONLY VIEWABLE IN PDF VERSION OF REPORT China Gee MD PhD LAB PATHOLOGY ZELDA HAN Final Result PATHOLOGY [facility] 3rd Floor [place], [place] [phone] documented in this encounter Visit Diagnoses Diagnosis [...] 08/09/2022 documented in this encounter Care Teams Icu Clerk Relationship Specialty Start Date End Date Chan Daniel MD [address] [place] [address] PCP - General Internal Medicine 04/30/22 Chan Daniel MD [address] [place] [address] Referring Physician Internal Medicine 04/30/22 Myrtle Rivas MD [address] [facility] [address] [place] [address] Referring Physician Plastic Surgery 07/14/22 China Gee MD PhD [address] DIV IM MEDICAL ONCOLOGY, [address], [address], [address] [place] [address] Medical Oncologist/Acoustic Warfare Analyst Medical Oncology 07/14/22 documented as of this encounter
--- OUTSIDE RECORDS SUMMARY | 2024-11-10 04:10 | XMS_ITS | Encounter Summary ---
Author Organization [facility] Address [address] [place] [address] Phone Care Team Providers Care Assistant Professor Name Role Phone Chan Daniel MD Primary Care Provider [phone] Chan Daniel MD Unavailable [phone] Myrtle Rivas MD Unavailable [phone] China Gee MD PhD Unavailable + Encounter Details Date Type Department Care Team (Late st Contact Info) Description 08/11/2022 Telephone [facility] Oncology [address] [facility] 7th [place] [address] [place] [address] Rosamaria Mann RMA Social History [...] on filedocumented in this encounter Care Teams Assistant Professor Relationship Specialty Start Date End Date Chan Daniel MD [address] [place] [address] PCP - General Internal Medicine 04/30/22 Chan Daniel MD [address] [place] [address] Referring Physician Internal Medicine 04/30/22 Myrtle Rivas MD [address] [facility] [address] [place] [address] Referring Physician Plastic Surgery 07/14/22 China Gee MD PhD [address] [facility] DIV IM MEDICAL ONCOLOGY, [address], [address], [address] [place] [address] Medical Oncologist/Service Engineer Medical Oncology 07/14/22 documented as of this encounter
--- OUTSIDE RECORDS SUMMARY | 2024-11-10 04:10 | XMS_ITS | Encounter Summary ---
Author Organization [facility] Healthcare Address [address] [place] [address] Care Team Providers Care Military Science Teacher Name Role Phone Chan Daniel MD Primary Care Provider [phone] Chan Daniel MD Unavailable [phone] Reason for Referral * MRI/CAT/PET Scan (Routine) - Closed Specialty Diagnoses / Procedures Referred By Hernan coreas Referred To Contact Radiology Diagnoses Mass of muscle of right lower extremity Procedures MRI Knee Right W WO Contrast Myrtle Rivas MD [address] [place] [address] Phone: tel: fax: [address] [address] Referral ID Status Reason Start Date Expiration Date Visits Re quested Visits Authorized [id number] Closed 06/17/2022 06/17/2023 1 1 Reason for Visit * MRI/CAT/PET Scan (Routine) - Closed Specialty Diagnoses / Procedures Referred By Contac t Referred To Contact Radiology Diagnoses Mass of muscle of right lower extremity Procedures MRI Knee Right W WO Contrast Myrtle Rivas MD [address] [place] [address] Phone: tel: fax: [facility] [address] [facility] [place] [address] Referral ID Status Reason Start Date Expiration Date Visits Re quested Visits Authorized [id number] Closed 06/17/2022 06/17/2023 1 1 Encounter Details Date Type Department Care Team (Latest Contact Info) Description 07/11/2022 7:32 AM CDT - 07/11/2022 11:59 PM CDT Hospital Encounter [facility] [address] [place] [address] Myrtle Rivas MD [address] [place] [address] Mass of muscle of right lower extremity [...] chloride ER 20 mEq CR tablet 05/04/2022 Gfh-Jq-Tpnhgzex 0.18/0.215/0.25 mg-25 mcg per tablet 05/29/2022 triamterene-hydro [...] 07/11/2022 documented in this encounter Care Teams Military Science Teacher Relationship Specialty Start Date End Date Chan Daniel MD [address] [place] [address] PCP - General Internal Medicine 04/30/22 Chan Daniel MD [address] [place] [address] Referring Physician Internal Medicine 04/30/22 documented as of this encounter
--- OUTSIDE RECORDS SUMMARY | 2024-11-10 04:10 | XMS_ITS | Encounter Summary ---
Author Organization [facility] Address [address] [place] [address] Phone Care Team Providers Care Military Police Officer Name Role Phone Chan Daniel MD Primary Care Provider [phone] Chan Daniel MD Unavailable [phone] Encounter Details Date Type Department Care Team (Late st Contact Info) Description 05/10/2022 Telephone [facility] Surgery [address] [facility] 6th [place] [address] [place] [address] Ashley Mojica M.A. Social History [...] on filedocumented in this encounter Care Teams Military Police Officer Relationship Specialty Start Date End Date Chan Daniel MD [address] [place] [address] PCP - General Internal Medicine 04/30/22 Chan Daniel MD [address] [place] [address] Referring Physician Internal Medicine 04/30/22 documented as of this encounter
--- OUTSIDE RECORDS SUMMARY | 2024-11-10 04:10 | XMS_ITS | Encounter Summary ---
Author Organization [facility] Address [address] [place] [address] Care Team Providers Care Box Truck Washer Name Role Phone Chan Daniel MD Primary Care Provider + [phone] Chan Daniel MD Unavailable [phone] Myrtle Rivas MD Unavailable [phone] China Gee MD PhD Unavailable + Encounter Details Date Type Department Care Team (Late st Contact Info) Description 08/10/2022 Telephone [facility] Radiology [address] [place] [address] Zelda Mueller RN Social History Tobacco Use [...] Mueller RN - 08/10/2022 12:23 PM CDT [facility] Rad[facility]. Post procedure call DOS 08/09/22 Right [...] on filedocumented in this encounter Care Teams Box Truck Washer Relationship Specialty Start Date End Date Chan Daniel MD [address] [place] [address] PCP - General Internal Medicine 04/30/22 Chan Daniel MD [address] [place] [address] Referring Physician Internal Medicine 04/30/22 Myrtle Rivas MD [address] [place] [address] Referring Physician Plastic Surgery 07/14/22 China Gee MD PhD [address] DIV IM MEDICAL ONCOLOGY, [address]A, 7B, [address] [place] [address] Medical Oncologist/Sql Developer Medical Oncology 07/14/22 documented as of this encounter
--- OUTSIDE RECORDS SUMMARY | 2024-11-10 04:10 | XMS_ITS | Encounter Summary ---
Author Organization [facility] Address [address] [place] [address] Phone Care Team Providers Care Miter Sawyer Name Role Phone Chan Daniel MD Primary Care Provider + [phone] Chan Daniel MD Unavailable [phone] Myrtle Rivas MD Unavailable [phone] China Gee MD PhD Unavailable + Encounter Details Date Type Department Care Team (Late st Contact Info) Description 08/17/2022 Telephone [facility] Oncology [address] [facility] 7th [place] [address] [place] [address] Jose Armando Carrillo NP [address] [place] [address] Social History Tobacco Use Types Packs/Day Years [...] Patient in agreement. Jose Armando Carrillo, MSN, LAST CODE STRIPER, AGNP-C Nurse Practitioner, Medical Oncology [facility] documented in this encounter Plan of Treatment Not on file documented as of this encounter Visit Diagnoses Not on filedocumented in this encounter Care Teams Miter Sawyer Relationship Specialty Start Date End Date Chan Daniel MD [address] [place] [address] PCP - General Internal Medicine 04/30/22 Chan Daniel MD [address] [place] [address] Referring Physician Internal Medicine 04/30/22 Myrtle Rivas MD [address] [facility] [address] 6[address] [place] [address] Referring Physician Plastic Surgery 07/14/22 China Gee MD PhD [address] [facility] [address] DIV IM MEDICAL ONCOLOGY, [address], [address], [address] [place] [address] Medical Oncologist/Salt Machine Operator Medical Oncology 07/14/22 documented as of this encounter
--- OUTSIDE RECORDS SUMMARY | 2024-11-10 04:10 | XMS_ITS | Clinical Summary ---
Author Organization [facility] Address [address] [place] [address] Care Team Providers Care Domestic Freight Forwarder Name Role Phone Chan Daniel MD Primary Care Provider + [phone] Chan Daniel MD Unavailable [phone] Myrtle Rivas MD Unavailable [phone] China Gee MD PhD Unavailable + Allergies Active Allergy Reactions Criticality Noted Date Comments Penicillins Rash Medium 06/10/2022 Medications losartan (COZAAR) 100 mg tablet 05/13/2022 Active triamterene-hyd roCHLOROthiazid e 37.5-25 mg per tablet 05/13/2022 Active Hlp-Xg-Ijemakrx 0.18/0.215/0.25 mg-25 mcg per tablet 05/29/2022 Active [...] patient's age to complete this topic Insurance [facility] Care Teams Domestic Freight Forwarder Relationship Specialty Start Date End Date Chan Daniel MD [address] [place] [address] PCP - General Internal Medicine 04/30/22 Chan Daniel MD [address] [place] [address] Referring Physician Internal Medicine 04/30/22 Myrtle Rivas MD [address] [facility] [address] [place] [address] Referring Physician Plastic Surgery 07/14/22 China Gee MD PhD [address] [facility] DIV IM MEDICAL ONCOLOGY, [address]A, [address]B, [address] [place] [address] Medical Oncologist/Home Sales Service Professional Medical Oncology 07/14/22
--- OUTSIDE RECORDS SUMMARY | 2024-11-10 04:10 | XMS_ITS | Referral Summary ---
Author Organization [facility] Address [address] [place] [address] Care Team Providers Care Supervisor Type Bar And Segment Name Role Phone Chan Daniel MD Primary Care Provider + [phone] Chan Daniel MD Unavailable [phone] Myrtle Rivas MD Unavailable [phone] China Gee MD PhD Unavailable + Allergies Active Allergy Reactions Criticality Noted Date Comments Penicillins Rash Medium 06/10/2022 Medications losartan (COZAAR) 100 mg tablet 05/13/2022 Active triamterene-hyd roCHLOROthiazid e 37.5-25 mg per tablet 05/13/2022 Active Zrw-Ed-Nvvvhyqn 0.18/0.215/0.25 mg-25 mcg per tablet 05/29/2022 Active [...] Plan of Treatment Not on file Insurance [facility] Care Teams Supervisor Type Bar And Segment Relationship Specialty Start Date End Date Chan Daniel MD [address] [place] [address] PCP - General Internal Medicine 04/30/22 Chan Daniel MD [address] [place] [address] Referring Physician Internal Medicine 04/30/22 Myrtle Rivas MD [address] [place] [address] Referring Physician Plastic Surgery 07/14/22 China Gee MD PhD [address] DIV IM MEDICAL ONCOLOGY, [address]A, [address]B, [address] [place] [address] Medical Oncologist/Polish Compounder Medical Oncology 07/14/22
--- OUTSIDE RECORDS SUMMARY | 2024-11-10 04:10 | XMS_ITS | Clinical Summary ---
Author Organization [facility] Address [address] [place] [address]. [place], [place] [address] [place] [address] Care Team Providers Care Television Newscast Director Name Role Phone Unavailable Primary Care Provider [...]
--- OUTSIDE RECORDS SUMMARY | 2024-11-10 04:10 | XMS_ITS | Encounter Summary ---
Author Organization [facility] Address [address] [place] [address] Care Team Providers Care Electrical Apprentice Name Role Phone Chan Daniel MD Primary Care Provider + [phone] Chan Daniel MD Unavailable [phone] Myrtle Rivas MD Unavailable [phone] China Gee MD PhD Unavailable + Encounter Details Date Type Department Care Team (Late st Contact Info) Description 08/03/2022 Telephone [facility] Radiology 1 [place] [address] Zelda Mueller RN Social History Tobacco Use [...] home per pt request. Date scheduled:08/09/22 Location: [facility] admitting Registration time: 1130 Procedure time: 1300 Instructed on NPO instructions: NPO after 0500 Indicated power screwdriver operator (family/friend) required: Y power screwdriver operator required to accompany pt to scheduled appointment Anticoagulant/Antiplatelet use: N Insurance PA needed: [facility]- Requested insurance approval through ordering office, Dr. China Gee/ Tayla Anderson RN documented in this encounter Plan of Treatment Not on file documented as of this encounter Visit Diagnoses Not on filedocumented in this encounter Care Teams Electrical Apprentice Relationship Specialty Start Date End Date Chan Daniel MD [address] [place] [address] PCP - General Internal Medicine 04/30/22 Chan Daniel MD [address] [place] [address] Referring Physician Internal Medicine 04/30/22 Myrtle Rivas MD [address] [facility] [address] [place] [address] Referring Physician Plastic Surgery 07/14/22 China Gee MD PhD [address] [facility] DIV IM MEDICAL ONCOLOGY, [address]A, [address]B, [address] [place] [address] Medical Oncologist/Pony Ride Operator Medical Oncology 07/14/22 documented as of this encounter
--- OUTSIDE RECORDS SUMMARY | 2024-11-10 04:10 | XMS_ITS | Encounter Summary ---
Author Organization [facility] Healthcare Address [address] [place] [address] Care Team Providers Care Public Relations Player Name Role Phone Chan Daniel MD Primary Care Provider + [phone] Chna Daniel MD Unavailable [phone] Myrtle Rivas MD Unavailable [phone] China Gee MD PhD Unavailable + Encounter Details Date Type Department Care Team (Latest Contact Info) Description 07/27/2022 1:43 PM CDT - 07/27/2022 11:59 PM CDT Hospital Encounter [facility] [place] [facility] ([facility]) [address] [place] [address] Neoplasm Discharge Disposition: Discharge to home or [...] chloride ER 20 mEq CR tablet 05/04/2022 Hql-Vc-Hnuswdig 0.18/0.215/0.25 mg-25 mcg per tablet 05/29/2022 triamterene-hydro [...] >90 90 - 130 mL/min/1. 73 m2 [facility] Comment: Interpretive Data Reference Interval Normal ?>/= [...] was last reviewed 2021. Testing performed by: [facility], [address] [place] [phone] Blood 07/27/2022 2:58 PM CDT 07/27/2022 3:01 PM CDT China Gee MD PhD LAB BLOOD ORDERABL ES Final Result [facility] One [facility] [place] [address] * (ABNORMAL) Differential, auto (07/27/2022 2:58 PM CDT) Neutrophil abs 7.6(H) 1.8 - 6.6 K/cumm [facility] Comment:Testing performed by : [facility], [address] [place] [phone] Lymphocyte abs 2.6 1.2 - 3.3 K/cumm [facility] Comment:Testing performed by : [facility], [address] [place] [phone] Monocyte abs 1.2 0.2 - 1.2 K/cumm [facility] Comment:Testing performed by : [facility], [address] [place] [phone] Eosinophil abs 0.2 0.0 - 0.5 K/cumm [facility] Comment:Testing performed by : [facility], [address] [place] [phone] Basophil abs 0.1 0.0 - 0.2 K/cumm [facility] Comment:Testing performed by : [address] [phone] Neutrophil pct 64.6 % [facility] Comment: Interpretive Data Percent cell count reference ranges are not reported, since discordance with absolute values may lead to misinterpretation of CBC data. Current Interpretive Data was last revised on 2018. Testing performed by: [facility], [address] [place] [phone] Lymphocyte pct 22.3 % [facility] Comment: Interpretive Data Percent cell count reference ranges are not reported, since discordance with absolute values may lead to misinterpretation of CBC data. Current Interpretive Data was last revised on 2018. Testing performed by: [facility], [address] [place] [phone] Monocyte pct 10.1 % [facility] Comment:Testing performed by : [facility], [address] [place] [phone] Eosinophil pct 2.1 % [facility] Comment:Testing performed by : [facility], [address] [place] [phone] Basophil pct 0.9 % [facility] Comment:Testing performed by : [facility], [address] [place] [phone] Blood 07/27/2022 2:58 PM CDT 07/27/2022 3:01 PM CDT us China Gee MD PhD LAB BLOOD ORDERABL ES Final Result [facility] One [facility] [place] [address] * (ABNORMAL) CBC with auto differential (07/27/2022 2:58 PM CDT) WBC 11.7(H) 3.8 - 9.8 K/cumm [facility] Comment:Testing performed by : [facility], [address] [place] [phone] Hgb 13.6 12.1 - 15.1 g/dL [facility] Comment:Testing performed by : [facility], [address] [place] [phone] Hct 40.4 36.1 - 44.3 % [facility] Comment:Testing performed by : [address] [phone] Plt 443(H) 140 - 440 K/cumm [facility] Comment:Testing performed by : [facility], [address] [place] [phone] MPV 7.5 6.8 - 10.[address] [facility] Comment:Testing performed by : [facility], [address] [place], [place] [phone] RBC 4.40 3.90 - 5.00 M/cumm [facility]I [facility] Comment:Testing performed by : [facility], [address] [place], [place] [phone] MCV 91.8 80.0 - 97.6 fL [facility] Comment:Testing performed by : [facility], [address] [place] [address] MCH 30.9 26.7 - 33.[address] [facility] Comment:Testing performed by : [facility], [address] [place] [phone] MCHC 33.7 32.7 - 35.5 g/dL [facility] Comment:Testing performed by : [facility], [address] [place] [phone] RDW CV 13.4 11.8 - 14.6 % [facility] Comment:Testing performed by : [facility], [address] [place] [phone] NRBC abs 0.00 0.00 - 0.01 K/cumm [facility] Comment:Testing performed by : [facility], [address] [place] [phone] Blood 07/27/2022 2:58 PM CDT 07/27/2022 3:01 PM CDT us China Gee MD PhD LAB BLOOD ORDERABL ES Final Result [facility] One [facility] Department of Laboratories [place], [place] [id number] * (ABNORMAL) Comprehensive metabolic panel (07/27/2022 2:58 PM CDT) Sodium 139 135 - 145 mmol/L [facility] Comment:Testing performed by : [facility], [address] [place], [place] [phone] Potassium, pl 4.2 3.3 - 4.9 mmol/L [facility] Comment:Testing performed by : [facility], [address] [place] [phone] Chloride 101 97 - 110 mmol/L [facility] Comment:Testing performed by : [facility], [address] [place] [phone] CO2 30 22 - 32 mmol/L [facility] Comment:Testing performed by : [facility], [address] [place] [phone] Anion gap 8 2 - 15 mmol/L [facility] Comment:Testing performed by : [facility], [address] [place] [phone] BUN 18 8 - 25 mg/dL [facility] Comment:Testing performed by : [facility], [address] [place] [phone] Creatinine 0.58(L) 0.60 - 1.10 mg/dL [facility] Comment:Testing performed by : [facility], [address] [place] [phone] Glucose 116 70 - 199 mg/dL CERNER [...] was last revised 2017. Testing performed by: [facility], [address] [place] [phone] Calcium 9.8 8.5 - 10.3 mg/dL [facility] Comment:Testing performed by : [facility], [address] [place] [phone] Bilirubin, total 0.3 0.1 - 1.2 mg/dL [facility] Comment:Testing performed by : [facility], [address] [place] [phone] Protein, pl 8.1 6.5 - 8.5 g/dL [facility] Comment:Testing performed by : [facility], [address] [place] [phone] Albumin 4.5 3.5 - 5.0 g/dL [facility] Comment:Testing performed by : [facility], [address] [place] [phone] Alk phos 89 40 - 130 Units/L [facility] Comment:Testing performed by : [facility], [address] [place] [phone] ALT <5(L) 7 - 45 Units/L [facility] Comment:Testing performed by : [facility], [address] [place] [phone] AST 14 10 - 45 Units/L [facility] Comment:Testing performed by : [facility], [address] [place] [phone] Blood 07/27/2022 2:58 PM CDT 07/27/2022 3:01 PM CDT us China Gee MD PhD LAB BLOOD ORDERABL ES Final Result [facility] One [facility] [place] [address] documented in this encounter Visit Diagnoses Diagnosis Neoplasm Neoplasm of unspecified nature, site unspecified documented in this encounter Orders Lab Orders Without Results Count Last Ordered D ate First Ordered Date [facility] 1 07/27/2022 documented in this encounter Care Teams Public Relations Player Relationship Specialty Start Date End Date Chan Daniel MD [address] [place] [address] PCP - General Internal Medicine 04/30/22 Chan Daniel MD [address] [place] [address] Referring Physician Internal Medicine 04/30/22 Myrtle Rivas MD [address] [facility] [address] [place] [address] Referring Physician Plastic Surgery 07/14/22 China Gee MD PhD [address] [facility] [address] DIV IM MEDICAL ONCOLOGY, [address], [address], [address] [place] [address] Medical Oncologist/Tool Grinder Operator Surface Medical Oncology 07/14/22 documented as of this encounter
--- OUTSIDE RECORDS SUMMARY | 2024-11-10 04:10 | XMS_ITS | Encounter Summary ---
Author Organization [facility] Address [address] [place] [address] Phone Care Team Providers Care Creative Engagement Director Name Role Phone Chan Daniel MD Primary Care Provider [phone] Chan Daniel MD Unavailable [phone] Reason for Referral * MRI/CAT/PET Scan (Routine) - Closed Specialty Diagnoses / Procedures Referred By Contac t Referred To Contact Radiology Diagnoses Mass of muscle of right lower extremity Procedures MRI Knee Right W WO Contrast Myrtle Rivas MD [address] [place] [address] Phone: tel: fax: [facility] [address] [place] [address] Referral ID Status Reason Start Date Expiration Date Visits Re quested Visits Authorized [id number] Closed 06/17/2022 06/17/2023 1 1 Encounter Details Date Type Department Care Team (Late st Contact Info) Description 06/10/2022 Orders Only [facility] Surgery [address] [facility] Advanced [facility] 6th [place] [address] [place] [address] Myrtle Rivas MD [address] [place] [address] Mass of muscle of right lower extremity [...] extremity documented in this encounter Care Teams Creative Engagement Director Relationship Specialty Start Date End Date Chan Daniel MD [address] [place] [address] PCP - General Internal Medicine 04/30/22 Chan Daniel MD [address] [place] [address] Referring Physician Internal Medicine 04/30/22 documented as of this encounter
--- OUTSIDE RECORDS SUMMARY | 2024-11-10 04:10 | XMS_ITS | Encounter Summary ---
Author Organization [facility] Healthcare Address [address] [place] [address] Care Team Providers Care Torch Brazer Name Role Phone Chan Daniel MD Primary Care Provider + [phone] Chan Daniel MD Unavailable [phone] Myrtle Rivas MD Unavailable [phone] China Gee MD PhD Unavailable + Encounter Details Date Type Department Care Team (Late st Contact Info) Description 07/09/2022 Telephone [facility] [address] [place] [address] Myrtle Rivas MD [address] [facility] [address] [place], [place] [id number] Social History Tobacco Use Types Packs/Day Years [...] on filedocumented in this encounter Care Teams Torch Brazer Relationship Specialty Start Date End Date Chan Daniel MD [address] [place] [address] PCP - General Internal Medicine 04/30/22 Chan Daniel MD [address] [place] [address] Referring Physician Internal Medicine 04/30/22 Myrtle Rivas MD [address] [facility] [address] [place] [address] Referring Physician Plastic Surgery 07/14/22 China Gee MD PhD [address] [facility] DIV IM MEDICAL ONCOLOGY, [address] [place] [address] Medical Oncologist/Solar Sales Estimator Medical Oncology 07/14/22 documented as of this encounter
--- OUTSIDE RECORDS SUMMARY | 2024-11-10 04:10 | XMS_ITS | Encounter Summary ---
Author Organization [facility] Healthcare Address [address] [place] [address] Care Team Providers Care Track Service Person Name Role Phone Chan Daniel MD Primary Care Provider + [phone] Chan Daniel MD Unavailable [phone] Myrtle Rivas MD Unavailable [phone] China Gee MD PhD Unavailable + Encounter Details Date Type Department Care Team (Late st Contact Info) Description 07/30/2022 Telephone [facility] Radiology [address] [place] [address] Zelda Mueller RN Social History Tobacco Use [...] on filedocumented in this encounter Care Teams Track Service Person Relationship Specialty Start Date End Date Chan Daniel MD [address] [place] [address] PCP - General Internal Medicine 04/30/22 Chan Daniel MD [address] [place] [address] Referring Physician Internal Medicine 04/30/22 Myrtle Rivas MD [address] [place] [address] Referring Physician Plastic Surgery 07/14/22 China Gee MD PhD [address] DIV IM MEDICAL ONCOLOGY, [address]A, [address]B, [address] [place] [address] Medical Oncologist/Manager Spanish Medical Oncology 07/14/22 documented as of this encounter
--- OUTSIDE RECORDS SUMMARY | 2024-11-10 04:10 | XMS_ITS | Encounter Summary ---
Author Organization [facility] Address [address] [place] [address] Phone Care Team Providers Care Metal Work Duct Installer Name Role Phone Chan Daniel MD Primary Care Provider [phone] Chan Daniel MD Unavailable [phone] Encounter Details Date Type Department Care Team (Late st Contact Info) Description 05/05/2022 Telephone [facility] Surgery [address] [facility] 6th [place] [address] [place] [address] Ashley Mojica M.A. Social History [...] on filedocumented in this encounter Care Teams Metal Work Duct Installer Relationship Specialty Start Date End Date Chan Daniel MD [address] [place] [address] PCP - General Internal Medicine 04/30/22 Chan Daniel MD [address] [place] [address] Referring Physician Internal Medicine 04/30/22 documented as of this encounter
--- OUTSIDE RECORDS SUMMARY | 2024-11-10 04:10 | XMS_ITS | Encounter Summary ---
Author Organization [facility] Address [address] [place] [address] Phone Care Team Providers Care Hydrogeology Professor Name Role Phone Chan Daniel MD Primary Care Provider [phone] Chan Daniel MD Unavailable [phone] Encounter Details Date Type Department Care Team (Late st Contact Info) Description 04/30/2022 Orders Only [facility] Surgery [address] [facility] Advanced Medicine 6th [place] [address] [place] [address] Myrtle Rivas MD [address] [place], [place] [id number] Social History Tobacco Use Types Packs/Day Years [...] on filedocumented in this encounter Care Teams Hydrogeology Professor Relationship Specialty Start Date End Date Chan Daniel MD [address] [place] [address] PCP - General Internal Medicine 04/30/22 Chan Daniel MD [address] [place] [id number] Referring Physician Internal Medicine 04/30/22 documented as of this encounter
--- OUTSIDE RECORDS SUMMARY | 2024-11-10 04:10 | XMS_ITS | Encounter Summary ---
Author Organization [facility] Address [address] [place] [address] Phone Care Team Providers Care Flexible Shaft Winder Name Role Phone Chan Daniel MD Primary Care Provider [phone] Chan Daniel MD Unavailable [phone] Myrtle Rivas MD Unavailable [phone] China Gee MD PhD Unavailable + Reason for Visit * Consultation (Routine) - Closed Specialty Diagnoses / Procedures Referred By Contac t Referred To Contact Plastic Surgery Diagnoses Neoplasm Chan Daniel MD [address] [place] [address] Phone: tel: fax: [facility] (All Locations) Referral ID Status Reason Start Date Expiration Date V isits Requested Visits Authorized [id number] Closed Specialty Services Required 04/30/2022 05/30/2023 99 99 Encounter Details Date Type Department Care Team (Late st Contact Info) Description 07/15/2022 8:45 AM CDT Telemedicine [facility] Surgery [address] [facility] 6th [place] [address] [place] [address] Myrtle Rivas MD [address] [place] [address] Neoplasm (Primary Dx) Social History Tobacco Use [...] which took place via Real-time video connection (Zenkars, Zoom or similar).During the visit, I was located at home and the patient was located at home in the state [facility]. I was present for the [place] portions [...] MD DATE OF VISIT: 07/13/2022 Dear Chan Daniel MD, I was pleased to see Mirna [...] her questions were answered. Sincerely, Myrtle Rivas, Hat Steamer, [facility] Dr. Myrtle Rivas dictating using Fluency Direct. Assembly Riveter nonsensical variances may occur. ATTENDING ATTESTATION: Please [...] that above information collected. Myrtle Rivas M.D. Hat Steamer, [employer] [facility] Dr. Myrtle Rivas is dictating using Fluency Direct. Assembly Riveter nonsensical variances may occur. documented in this [...] unspecified documented in this encounter Care Teams Flexible Shaft Winder Relationship Specialty Start Date End Date Chan Daniel MD [address] [place] [address] PCP - General Internal Medicine 04/30/22 Chan Daniel MD [address] [place] [address] Referring Physician Internal Medicine 04/30/22 Myrtle Riavs MD [address] [place] [address] Referring Physician Plastic Surgery 07/14/22 China Gee MD PhD [address] DIV IM MEDICAL ONCOLOGY, [address]A, 7B, [address] [place] [address] Medical Oncologist/Oil Dipper Medical Oncology 07/14/22 documented as of this encounter
--- OUTSIDE RECORDS SUMMARY | 2024-11-10 04:10 | XMS_ITS | Encounter Summary ---
Author Organization [facility] Address [address] [place] [address]. [place] [address] [place] [address] Care Team Providers Care Wolf Hunter Name Role Phone Unavailable Primary Care Provider Unavailabl e Encounter Details Date Type Department Care Team (Late st Contact Info) Description 11/23/2013 Abstract [facility] [address] [place] [address] , Raven Garza MD Social History Tobacco [...]
--- OUTSIDE RECORDS SUMMARY | 2024-11-10 04:10 | XMS_ITS | Encounter Summary ---
Author Organization [facility] Address [address] [place] [address] Phone Care Team Providers Care Electrical Tech Name Role Phone Chan Daniel MD Primary Care Provider [phone] Chan Daniel MD Unavailable [phone] Reason for Visit * Consultation (Routine) - Closed Specialty Diagnoses / Procedures Referred By Contac t Referred To Contact Plastic Surgery Diagnoses Neoplasm Chan Daniel MD [address] [place] [address] Phone: tel: fax: [facility] (All Locations) Referral ID Status Reason Start Date Expiration Date V isits Requested Visits Authorized [id number] Closed Specialty Services Required 04/30/2022 05/30/2023 99 99 Encounter Details Date Type Department Care Team (Late st Contact Info) Description 06/10/2022 12:45 PM CDT Office Visit [facility] Surgery [address] [facility] Advanced [facility] 6th [place] [address] [place] [address] Myrtle Rivas MD [address] [place] [address] Neoplasm Social History Tobacco Use [...] HTN Surg Hx: None Meds: Sumitriptan, control lmi-hs-wccztfqp, triamterene-HCTZ, losartan All: Penicillins (pedal edema) SH: No tobacco/EtOH/IVDU. Employed at [employer] [address] [employer], engaged with 2 children. [employer] [facility] OSH BLE duplex 03/16/22 - No DVT. [...] to see her p.r.n.. Myrtle Rivas M.D. Transcription Manager, [facility] documented in this encounter Plan of Treatment Not on file documented as of this encounter Visit Diagnoses Diagnosis Neoplasm Neoplasm of unspecified nature, site unspecified documented in this encounter Historical Medications * This list may reflect changes made after this encounter. ACETAMINOPHEN ORAL Take by mouth multivitamin capsule Take 1 capsule by mouth daily potassium chloride ER 20 mEq CR tablet 05/04/2022 Omj-Wo-Ibklldru 0.18/0.215/0.25 mg-25 mcg per tablet 05/29/2022 triamterene-hydro CHLOROthiazide 37.5-25 mg per tablet 05/13/2022 losartan (COZAAR) 100 mg tablet 05/13/2022 added in this encounter Orders Outpatient Referral Count Last Ordered Date Fir st Ordered Date AMB REFERRAL TO PLASTIC SURGERY 1 2 documented in this encounter Care Teams Electrical Tech Relationship Specialty Start Date End Date Chan Daniel MD [address] [place] [address] PCP - General Internal Medicine 04/30/22 Chan Daniel MD [address] [place] [address] Referring Physician Internal Medicine 04/30/22 documented as of this encounter
--- OUTSIDE RECORDS SUMMARY | 2024-11-10 04:10 | XMS_ITS | Encounter Summary ---
Author Organization [facility] Healthcare Address [address] [place] [address] Care Team Providers Care Planer Off Bearer Name Role Phone Chan Daniel MD Primary Care Provider + [phone] Chan Daniel MD Unavailable [phone] Myrtle Rivas MD Unavailable [phone] China Gee MD PhD Unavailable + Encounter Details Date Type Department Care Team (Late st Contact Info) Description 08/06/2022 Telephone [facility] Radiology [address] [place] [address] Magui Deng RN Social History Tobacco Use [...] Verified: Yes (1130) Procedure Location Verified: Yes ([facility]) Medical History Reviewed: Yes NPO Status Reinforced: Yes (npo after 0500) Ride and Caregiver Arranged: Yes Is Patient on Blood Thinners?: No (denies) documented in this encounter Plan of Treatment Not on file documented as of this encounter Visit Diagnoses Not on filedocumented in this encounter Care Teams Planer Off Bearer Relationship Specialty Start Date End Date Chan Daniel MD [address] [place] [address] PCP - General Internal Medicine 04/30/22 Chan Daniel MD [address] [place] [address] Referring Physician Internal Medicine 04/30/22 Myrtle Rivas MD [address] [facility] [place] [address] [place] [address] Referring Physician Plastic Surgery 07/14/22 Chnia Gee MD PhD [address] [facility] [address] DIV IM MEDICAL ONCOLOGY, [address]A, [address]B, [address] [place] [address] Medical Oncologist/Clerk Of Scales Medical Oncology 07/14/22 documented as of this encounter
== END 2024-11-03 03:35 | disposition home or self-care (01) ==
LOC: CHSED 03:07
PROVIDERS: Emergency Provider Emergency Medicine; PCP Internal Medicine
DX: H60.311 Diffuse otitis externa, right ear (principal)
CPT/HCPCS: 99283; A9270

== ENCOUNTER 2025-01-26 07:13 | Outpatient (CLI) | payer OTHER, SELFPAY ==
--- OUTSIDE RECORDS SUMMARY | 2025-01-26 07:15 | XMS_ITS | Clinical Summary ---
Author Organization [facility] Address [facility] [place] [address] Care Team Providers Care Creative Strategist Name Role Phone Unavailable Primary Care Provider [...] season) 2024 Influenza Adult (#1) 2024 Meningococcal B Vaccine Aged Out No l onger eligible based on patient's age to complete this topic Meningococcal Vaccine Aged Out No joaquin loretta [...]
--- OUTSIDE RECORDS SUMMARY | 2025-01-26 07:15 | XMS_ITS | Encounter Summary ---
Author Organization [facility] Healthcare Address [address] [place] [address] Care Team Providers Care Bottle Inspector Name Role Phone Chan Daniel MD Primary Care Provider + [phone] Chan Daniel MD Unavailable [phone] Myrtle Rivas MD Unavailable [phone] China Gee MD PhD Unavailable + Encounter Details Date Type Department Care Team (Late st Contact Info) Description 07/09/2022 Telephone [facility] [address] [place] [address] Myrtle Rivas MD [address] [facility] [address] [place], [place] [id number] Social History Tobacco Use Types Packs/Day Years [...] on filedocumented in this encounter Care Teams Bottle Inspector Relationship Specialty Start Date End Date Chan Daniel MD [address] [place] [address] PCP - General Internal Medicine 04/30/22 Chan Daniel MD [address] [place] [address] Referring Physician Internal Medicine 04/30/22 Myrtle Rivas MD [address] [facility] [address] [place] [address] Referring Physician Plastic Surgery 07/14/22 China Gee MD PhD [address] [facility] DIV IM MEDICAL ONCOLOGY, [address]A, [address]B, [address] [place] [address] Medical Oncologist/Greaser Helper Medical Oncology 07/14/22 documented as of this encounter
--- OUTSIDE RECORDS SUMMARY | 2025-01-26 07:15 | XMS_ITS | Referral Summary ---
Author Organization [facility] Address [facility] [place] [address] Care Team Providers Care Rn Home Care Name Role Phone Chan Daniel MD Primary Care Provider + [phone] Chan Daniel MD Unavailable [phone] Myrtle Rivas MD Unavailable [phone] China Gee MD PhD Unavailable + Allergies Active Allergy Reactions Criticality Noted Date Comments Penicillins Rash Medium 06/10/2022 Medications losartan (COZAAR) 100 mg tablet 05/13/2022 Active triamterene-hyd roCHLOROthiazid e 37.5-25 mg per tablet 05/13/2022 Active Zxm-Vd-Kzfygixx 0.18/0.215/0.25 mg-25 mcg per tablet 05/29/2022 Active potassium chloride ER 20 mEq CR tablet 05/04/2022 Activ e multivitamin capsule Take 1 capsule by mouth daily Active ACETAMINOPHEN ORAL Take by mouth Active Active Problems Problem Noted Date Diagnosed Date Neoplasm 07/27/2022 Immunizations Immunization Administration Dates Next Due DTP 04/02/1981,06/15/1977,05/01/1976 ,02/29/1976,1975 [...] 66 08/09/2022 3:00 PM CDT Temperature 36.5 C (97.7 F) 08/09/2022 1:55 PM CDT Respiratory Rate 16 08/09/2022 3:00 PM CDT Oxygen Saturation 97% 08/09/2022 3:00 PM CDT Inhaled Oxygen Concentration - - Weight 116.1 kg (256 lb) 08/09/2022 12:25 PM CDT Height 162.6 cm (5' 4 ) 08/09/2022 12:25 PM CDT Body Mass Index 43.94 08/09/2022 12:25 PM CDT Plan of Treatment Not on file Insurance [facility] Care Teams Rn Home Care Relationship Specialty Start Date End Date Chan Daniel MD [address] [place] [address] PCP - General Internal Medicine 04/30/22 Chan Daniel MD [address] [place] [address] Referring Physician Internal Medicine 04/30/22 Myrtle Rivas MD [address] [facility] [address] [place] [address] Referring Physician Plastic Surgery 07/14/22 China Gee MD PhD [address] DIV IM MEDICAL ONCOLOGY, [address]A, 7B, [address] [place] [address] Medical Oncologist/Steam Boiler Fireman Medical Oncology 07/14/22
--- OUTSIDE RECORDS SUMMARY | 2025-01-26 07:15 | XMS_ITS | Clinical Summary ---
Author Organization [facility] Address [address] [place] [address] Care Team Providers Care Theater Usher Name Role Phone Chan Daniel MD Primary Care Provider + [phone] Chan Daniel MD Unavailable [phone] Myrtle Rivas MD Unavailable [phone] China Gee MD PhD Unavailable + Allergies Active Allergy Reactions Criticality Noted Date Comments Penicillins Rash Medium 06/10/2022 Medications losartan (COZAAR) 100 mg tablet 05/13/2022 Active triamterene-hyd roCHLOROthiazid e 37.5-25 mg per tablet 05/13/2022 Active Ldk-Ti-Xummjiwy 0.18/0.215/0.25 mg-25 mcg per tablet 05/29/2022 Active [...] Regular Well Visit/Exam 18-64 1993 Covid-19 Vaccine ( season) 2024 04/16/2022, 04/28/2021, 04/07/2021 Influenza Vaccine (#1) 2024 Pneumococcal vaccine <65 Aged Out No longer eligible based on patient's age to complete this topic Insurance Care Teams Theater Usher Relationship Specialty Start Date End Date Chan Daniel MD [address] [place] [address] PCP - General Internal Medicine 04/30/22 Chan Daniel MD [address] [place] [address] Referring Physician Internal Medicine 04/30/22 Myrtle Rivas MD [address] [facility] [address] [place] [address] Referring Physician Plastic Surgery 07/14/22 China Gee MD PhD [address] [facility] DIV IM MEDICAL ONCOLOGY, [address]A, [address]B, [address] [place] [address] Medical Oncologist/Police Surgeon Medical Oncology 07/14/22
[2025-01-26 07:34] LABS: Add Urine Microscopic? YES; Appearance Urine Sl Cloudy (Clear); Bilirubin Urine Negative (Negative); Blood Urine Trace-intact (Negative); Color Urine Yellow (Yellow); Glucose Urine UA Negative (Negative); Ketones Urine Negative (Negative); Leukocyte Esterase Ur 1+ (Negative); Nitrate Urine Negative (Negative); Protein Urine Trace (Negative); Specific Grav Ur 1.025 (1.010-1.020); Urobilinogen Urine 0.2 mg/dL (0.2-1.0)
[2025-01-26 07:39] LABS: Bacteria Urine 3+ /hpf; Mucus Urine Few /lpf; RBC Urine 0-2 /hpf (0-2); Squamous Epithelial Cell Urine Many /hpf (Few)
[2025-01-26 07:42] LABS: Hemoglobin A1C 5.6 % (<5.7)
[2025-01-26 08:21] LABS: Alanine Aminotransferase 9 U/L (14-59); Albumin Level 3.4 g/dL (3.4-5.0); Alkaline Phosphatase 89 U/L (46-116); Anion Gap 12 mmol/L (4-12); Aspartate Amino Transferase 12 U/L (15-37); Bilirubin,Total 0.5 mg/dL (0.00-1.00); Blood Urea Nitrogen 17 mg/dL (7-18); Calcium 9.4 mg/dL (8.5-10.1); Carbon Dioxide 29 mmol/L (21-32); Chloride 100 mmol/L (98-108); Cholesterol 217 mg/dL (0-200); Estimated Glomerular Filt Rate > 60; Glucose 91 mg/dL (70-99); HDL Direct 58 mg/dL (40-60); LDL Cholesterol Calculated 125 mg/dL (<130); Osmolality Calculated 293 mOsm/kg (285-295); Potassium 4.4 mmol/L (3.5-5.1); Sodium 141 mmol/L (136-145); Total Protein 7.3 g/dL (6.4-8.2); Triglycerides 171 mg/dL (0-150)
== END 2025-01-26 07:14 | disposition home or self-care (01) ==
LOC: CHSLAB 07:14
PROVIDERS: PCP Internal Medicine; Visit Provider Internal Medicine
DX: R73.01 Impaired fasting glucose (principal); I10 Essential (primary) hypertension; E78.2 Mixed hyperlipidemia
CPT/HCPCS: 36415; 80053; 80061; 81001; 83036

== ENCOUNTER 2025-02-18 11:46 | Outpatient (CLI) | payer OTHER, SELFPAY ==
--- NOTE | ~2025-02-18 | MM_ITS ---
EXAMINATION: MM screening leroy BI w lulu HISTORY: Screening TECHNIQUE: Craniocaudal and mediolateral oblique 3-D tomosynthesis images were obtained and synthetic 2-D images were generated. CAD analysis was submitted and interpreted. COMPARISON: 02/17/2024 and dating back to 02/08/2020 BREAST PARENCHYMAL COMPOSITION: There are scattered areas of fibroglandular density. FINDINGS: Stable parenchymal pattern without suspicious microcalcifications, architectural distortion, discrete masses or significant asymmetry. IMPRESSION: 1. No mammographic evidence of malignancy. 2. Recommend routine screening mammography in one year. BI-RADS Category 1: Negative Reviewed, dictated and finalized at location A.
--- OUTSIDE RECORDS SUMMARY | 2025-02-18 13:28 | XMS_ITS | Clinical Summary ---
Author Organization [facility] Address [facility] [place] [address] Care Team Providers Care Heater Mechanic Name Role Phone Unavailable Primary Care Provider [...] 2015 COVID-19 Vaccine (2023-2 5 season) 2024 Meningococcal B Vaccine Aged Out No l onger eligible based on patient's age to complete this topic Meningococcal Vaccine Aged Out No joaquin loretta eligible based on patient's age to complete this topic Pneumococcal Vaccine: Pediat rics (0 to 5 Years) and At-Risk Patients (6 to 49 Years) Aged Out No longer eligible b ased on patient's age to complete this topic RSV Immunizations Under 20 Months Aged Out No longer eligible based on patient's age to complete this topic
--- OUTSIDE RECORDS SUMMARY | 2025-02-18 13:28 | XMS_ITS | Encounter Summary ---
Author Organization [facility] Healthcare Address [address] [place] [address] Care Team Providers Care Scraper Burrer Name Role Phone Chan Daniel MD Primary Care Provider + [phone] Chan Daniel MD Unavailable [phone] Myrtle Rivas MD Unavailable [phone] China Gee MD PhD Unavailable + Encounter Details Date Type Department Care Team (Late st Contact Info) Description 07/09/2022 Telephone [facility] [address] [place] [address] Myrtle Rivas MD [address] [facility] [address] [place], [place] [address] Social History Tobacco Use Types Packs/Day Years [...] on filedocumented in this encounter Care Teams Scraper Burrer Relationship Specialty Start Date End Date Chan Daniel MD [address] [place] [address] PCP - General Internal Medicine 04/30/22 Chan Daniel MD [address] [place] [address] Referring Physician Internal Medicine 04/30/22 Myrtle Rivas MD [address] [facility] [address] [place] [address] Referring Physician Plastic Surgery 07/14/22 China Gee MD PhD [address] [facility] DIV IM MEDICAL ONCOLOGY, [address]A, 7B, [address] [place] [address] Medical Oncologist/Diathermy Equipment Repairer Medical Oncology 07/14/22 documented as of this encounter
--- OUTSIDE RECORDS SUMMARY | 2025-02-18 13:29 | XMS_ITS | Referral Summary ---
Author Organization [facility] Address [facility] [place] [address] Care Team Providers Care Batch Tester Name Role Phone Chan Daniel MD Primary Care Provider + [phone] Chan Daniel MD Unavailable [phone] Myrtle Rivas MD Unavailable [phone] China Gee MD PhD Unavailable + Allergies Active Allergy Reactions Criticality Noted Date Comments Penicillins Rash Medium 06/10/2022 Medications losartan (COZAAR) 100 mg tablet 05/13/2022 Active triamterene-hyd roCHLOROthiazid e 37.5-25 mg per tablet 05/13/2022 Active Bxh-Pa-Ikkzwygj 0.18/0.215/0.25 mg-25 mcg per tablet 05/29/2022 Active [...] Plan of Treatment Not on file Insurance [facility] Care Teams Batch Tester Relationship Specialty Start Date End Date Chan Daniel MD [address] [place] [address] PCP - General Internal Medicine 04/30/22 Chan Daniel MD [address] [place] [address] Referring Physician Internal Medicine 04/30/22 Myrtle Rivas MD [address] [facility] [address] [place] [address] Referring Physician Plastic Surgery 07/14/22 China Gee MD PhD [address] DIV IM MEDICAL ONCOLOGY, [address]A, [address]B, [address] [place] [address] Medical Oncologist/Hog Pusher Medical Oncology 07/14/22
--- OUTSIDE RECORDS SUMMARY | 2025-02-18 13:29 | XMS_ITS | Clinical Summary ---
Author Organization [facility] Address [address] [place] [address] Care Team Providers Care Reproduction Artist Name Role Phone Chan Daniel MD Primary Care Provider + [phone] Chan Daniel MD Unavailable [phone] Myrtle Rivas MD Unavailable [phone] China Gee MD PhD Unavailable + Allergies Active Allergy Reactions Criticality Noted Date Comments Penicillins Rash Medium 06/10/2022 Medications losartan (COZAAR) 100 mg tablet 05/13/2022 Active triamterene-hyd roCHLOROthiazid e 37.5-25 mg per tablet 05/13/2022 Active Bza-Ul-Sfzfbyga 0.18/0.215/0.25 mg-25 mcg per tablet 05/29/2022 Active [...] to complete this topic Insurance Care Teams Reproduction Artist Relationship Specialty Start Date End Date Chan Daniel MD [address] [place] [address] PCP - General Internal Medicine 04/30/22 Chan Daniel MD [address] [place] [address] Referring Physician Internal Medicine 04/30/22 Myrtle Rivas MD [address] [facility] [address] [place] [address] Referring Physician Plastic Surgery 07/14/22 China Gee MD PhD [address] [facility] DIV IM MEDICAL ONCOLOGY, [address]A, [address]B, [address] [place] [address] Medical Oncologist/Supervisor Coke Handling Medical Oncology 07/14/22
== END 2025-02-18 11:47 | disposition home or self-care (01) ==
LOC: CHSIMG 11:48
PROVIDERS: PCP Internal Medicine; Visit Provider Internal Medicine
DX: Z12.31 Encounter for screening mammogram for malignant neoplasm of breast (principal)
CPT/HCPCS: 77063; 77067

== ENCOUNTER 2025-03-30 17:21 | Emergency (ER) | payer OTHER, SELFPAY ==
--- NOTE | ~2025-03-30 | XR_ITS ---
XR finger 5th RT min 2V Ordering provider: Fredy Russo MD History: . right 5th finger pain after lifting injury . Comparison: None. FINDINGS: BONES: No acute fracture or dislocation. JOINT SPACES: Normal. SOFT TISSUES: Normal. IMPRESSION: No acute osseous abnormality. Reviewed, dictated and finalized at location A.
[2025-03-30 17:21] VITALS: BP 149/82; PULSE 76; RESP 18; TEMP 36.9; O2SAT 99
--- OUTSIDE RECORDS SUMMARY | 2025-03-30 17:28 | XMS_ITS | Clinical Summary ---
Author Organization [facility] Address [address] [place] [address] Care Team Providers Care Party Plan Sales Agent Name Role Phone Chan Daniel MD Primary Care Provider + [phone] Chan Daniel MD Unavailable [phone] Myrtle Rivas MD Unavailable [phone] China Gee MD PhD Unavailable + Allergies Active Allergy Reactions Criticality Noted Date Comments Penicillins Rash Medium 06/10/2022 Medications losartan (COZAAR) 100 mg tablet 05/13/2022 Active triamterene-hyd roCHLOROthiazid e 37.5-25 mg per tablet 05/13/2022 Active Ocf-To-Awlzmlzl 0.18/0.215/0.25 mg-25 mcg per tablet 05/29/2022 Active [...] 12:25 PM CDT Height 162.6 cm (5' 4) 08/09/2022 12:25 PM CDT Body Mass Index [...] season) 2024 04/16/2022, 04/28/2021, 04/07/2021 Influenza Vaccine (Season Ended) 2025 Pneumococcal vaccine <65 Aged Out No longer eligible based on patient's age to complete this topic Insurance Care Teams Party Plan Sales Agent Relationship Specialty Start Date End Date Chan Daniel MD [address] [place] [address] PCP - General Internal Medicine 04/30/22 Chan Daniel MD [address] [place] [address] Referring Physician Internal Medicine 04/30/22 Myrtle Rivas MD [address] [facility] [address] [place] [address] Referring Physician Plastic Surgery 07/14/22 China Gee MD PhD [address] [facility] DIV IM MEDICAL ONCOLOGY, [address]A, 7B, [address] [place] [address] Medical Oncologist/Order Checker Packer Processer Medical Oncology 07/14/22
--- OUTSIDE RECORDS SUMMARY | 2025-03-30 17:28 | XMS_ITS | Encounter Summary ---
Author Organization [facility] Healthcare Address [address] [place] [address] Care Team Providers Care Frame Runner Name Role Phone Chan Daniel MD Primary Care Provider + [phone] Chan Daniel MD Unavailable [phone] Myrtle Rivas MD Unavailable [phone] China Gee MD PhD Unavailable + Encounter Details Date Type Department Care Team (Late st Contact Info) Description 07/09/2022 Telephone [facility] [address] [place] [address] Myrtle Rivas MD [address] [facility] [address] [place], [place] [id number] Social History Tobacco Use Types Packs/Day Years [...] on filedocumented in this encounter Care Teams Frame Runner Relationship Specialty Start Date End Date Chan Daniel MD [address] [place] [address] PCP - General Internal Medicine 04/30/22 Chan Daniel MD [address] [place] [address] Referring Physician Internal Medicine 04/30/22 Myrtle Rivas MD [address] [facility] [address] [place] [address] Referring Physician Plastic Surgery 07/14/22 China Gee MD PhD [address] [facility] DIV IM MEDICAL ONCOLOGY, [address] [place] [address] Medical Oncologist/Wind Power Project Manager Medical Oncology 07/14/22 documented as of this encounter
--- OUTSIDE RECORDS SUMMARY | 2025-03-30 17:28 | XMS_ITS | Referral Summary ---
Author Organization [facility] Address [facility] [place] [address] Care Team Providers Care Supervisor General Name Role Phone Chan Daniel MD Primary Care Provider + [phone] Chan Daniel MD Unavailable [phone] Myrtle Rivas MD Unavailable [phone] China Gee MD PhD Unavailable + Allergies Active Allergy Reactions Criticality Noted Date Comments Penicillins Rash Medium 06/10/2022 Medications losartan (COZAAR) 100 mg tablet 05/13/2022 Active triamterene-hyd roCHLOROthiazid e 37.5-25 mg per tablet 05/13/2022 Active Zoz-Mn-Zkanbwsl 0.18/0.215/0.25 mg-25 mcg per tablet 05/29/2022 Active [...] Plan of Treatment Not on file Insurance [facility] Care Teams Supervisor General Relationship Specialty Start Date End Date Chan Daniel MD [address] [place] [address] PCP - General Internal Medicine 04/30/22 Chan Daniel MD [address] [place] [address] Referring Physician Internal Medicine 04/30/22 Myrtle Rivas MD [address] [facility] [address] [place] [address] Referring Physician Plastic Surgery 07/14/22 China Gee MD PhD [address] DIV IM MEDICAL ONCOLOGY, [address] [place] [address] Medical Oncologist/Farmworker [place] Medical Oncology 07/14/22
--- NOTE | 2025-03-30 18:45 | ED.UPPEXIN ---
HPI - Extremity Injury (Upper) General Chief Complaint: Extremity Injury, Upper Stated Complaint: right 5th finger injury Time Seen by Provider: 03/30/25 17:29 Source: patient Mode of arrival: ambulatory Limitations: no limitations History of Present Illness HPI narrative: this is a 49-year-old female with no significant past medical history was doing some moving of furniture and injured her right 5th finger causing bruising and pain with movement palpation no other injuries noted. complaint: injury to: left Onset (ago): hour(s) Other Extremity Injury: Left: fingers ( 5th finger of bruising and tenderness with palpation) Handedness: right Place: home Severity: mild Related Data Home Medications ?Medication ?Instructions ?Recorded ?Confirmed ?Last Taken ?Type norgestimate 0.18 mg/0.215mg/0.25 1 tablet PO DAILY 03/30/21 07/15/24 Unknown History mg-ethinyl estradiol 0.025 mg tablet (Bld-Tp-Wbidxvfh) losartan 100 mg tablet 100 mg PO DAILY 12/25/22 07/15/24 Unknown History triamterene 37.5 1 tablet PO DAILY 12/25/22 07/15/24 Unknown History mg-hydrochlorothiazide 25 mg tablet Allergies Allergy/AdvReac Type Severity Reaction Status Date / Time Penicillins Allergy Unknown Flushing Verified 07/15/24 02:01 Review of Systems Review of Systems: All systems reviewed & are unremarkable except as noted in HPI and below PMFSH Past Medical History Medical History Patient denies medical problems Exam Const: General: healthy appearing Nutritional Appearance: well nourished Orientation/consciousness: patient oriented x3 Limitations: no limitations HENMT: Head: normal to inspection Eyes: Conjunctivae: conjunctivae normal Pupils: Equal, round and reactive pupils present EOM: EOMs intact bilaterally Neck: Neck: normal visual inspection Chest: Chest palpation & inspection: normal inspection of the chest Resp: Effort & Inspection: normal respiratory effort Auscultation: clear to auscultation bilaterally Cardio: Rate: regular rate Rhythm: regular rhythm GI: GI Palp: Yes Soft to palpation Skin: General skin exam: normal color Wounds: wounds noted Other: Bruising and tenderness the left 5th distal finger Neuro: General: patient oriented x3, moves all extremities, no meningeal signs and no focal motor deficits Course Course Emergency Course: patient pain level is well controlled and declined any pain medicine x-ray performed shows no acute fractures. Vital Signs Vital signs: Vital Signs Temperature 36.9 C 03/30/25 17:21 Pulse Rate 76 03/30/25 17:21 Respiratory Rate 18 03/30/25 17:21 Blood Pressure 149/82 H 03/30/25 17:21 Pulse Oximetry 99 03/30/25 17:21 Oxygen Delivery Room Air 03/30/25 17:21 Temperature 36.9 C 03/30/25 17:21 Pulse Rate 76 03/30/25 17:21 Respiratory Rate 18 03/30/25 17:21 Blood Pressure 149/82 H 03/30/25 17:21 Pulse Oximetry 99 03/30/25 17:21 Oxygen Delivery Room Air 03/30/25 17:21 Critical Care Time Critical Care Time Critical Care Time: No Discharge Plan Discharge Clinical Impression: Finger sprain Qualifiers: Encounter type: initial encounter Finger: little finger Laterality: right Patient Disposition: Home Condition: Stable Instructions: Antibiotic Form, Finger Sprain (ED) Additional Instructions: can use a finger splint for finger protection follow with primary care physician within a week if symptoms persist or worsen take Tylenol or Motrin as needed. Patient Language: Peruvian Prescriptions: No Action norgestimate-ethinyl estradiol [Bnv-Zd-Vguadgdp] 0.18/0.215/0.25 mg-25 mcg tablet 1 tablet PO DAILY triamterene-hydrochlorothiazid 37.5-25 mg tablet 1 tablet PO DAILY losartan 100 mg tablet 100 mg PO DAILY prednisone 20 mg tablet 60 mg PO DAILY 6 Days Qty: 18 0RF pantoprazole [Protonix] [address] for susp in packet 40 mg PO DAILY 10 Days Qty: 10 0RF valacyclovir 1 gram tablet 1,000 mg PO Q8H 10 Days Qty: 30 0RF azithromycin [Zithromax Z-Stanislaw] 250 mg tablet See Rx Instructions .ROUTE .COMPLEX Qty: 6 0RF Rx Instructions: For 250 mg dose pack: take 500 mg today (day 1), then 250 mg for 4 days (days 2-5) fluticasone propionate [Flonase Allergy Relief] 50 mcg/actuation spray,suspension 2 spray intranasal DAILY Qty: 16 0RF Rx Instructions: administer into each nostril kxyuvzln-fuegqersv-VA 3.5-10,000-1 mg/mL-unit/mL-% drops,suspension 3 drp RIGHT EAR TID 7 Days Qty: 10 0RF Follow-up/Referrals: Chan Daniel MD [Primary Care Provider] -
[2025-03-30 18:54] VITALS: BP 148/85; PULSE 71; RESP 20; O2SAT 98
== END 2025-03-30 18:55 | disposition home or self-care (01) ==
PROVIDERS: Emergency Provider Emergency Medicine; PCP Internal Medicine
DX: S63.616A Unspecified sprain of right little finger, initial encounter (principal); X58.XXXA Exposure to other specified factors, initial encounter
CPT/HCPCS: 29130; 73140; 99283

== ENCOUNTER 2025-08-03 07:31 | Outpatient (CLI) | payer OTHER, SELFPAY ==
[2025-08-03 08:50] LABS: Alanine Aminotransferase 17 U/L (6-35); Albumin Level 4.3 g/dL (3.5-5.1); Alkaline Phosphatase 93 U/L (38-126); Anion Gap 13 mmol/L (4-12); Aspartate Amino Transferase 27 U/L (14-36); Bilirubin,Total 0.8 mg/dL (0.2-1.3); Blood Urea Nitrogen 18 mg/dL (7-17); Calcium 10.2 mg/dL (8.4-10.2); Carbon Dioxide 25 mmol/L (22-30); Chloride 102 mmol/L (98-107); Cholesterol 203 mg/dL (0-200); Estimated Glomerular Filt Rate > 60; Glucose 96 mg/dL (65-110); HDL Direct 42 mg/dL; Osmolality Calculated 291 mOsm/kg (285-295); Potassium 4.6 mmol/L (3.4-5.0); Sodium 140 mmol/L (137-145); Total Protein 8.0 g/dL (6.3-8.2); Triglycerides 174 mg/dL (<150)
[2025-08-03 08:55] LABS: Hemoglobin A1C 5.9 % (<5.7)
[2025-08-03 09:02] LABS: Appearance Urine Clear (Clear); Glucose Urine UA Negative (Negative); Leukocyte Esterase Ur 2+ LEU/UL (Negative); Nitrate Urine Negative (Negative); Specific Grav Ur 1.010 (1.010-1.020)
[2025-08-03 09:05] LABS: Free T3 4.73 pg/mL (2.18-3.98)
[2025-08-03 09:06] LABS: Free T4 Free Thyroxine 1.14 ng/dL (0.78-2.19)
[2025-08-03 09:09] LABS: Add Urine Microscopic? YES
[2025-08-03 09:20] LABS: Thyroid Stimulating Hormone 1.330 uIU/mL (0.465-4.680)
== END 2025-08-03 07:32 | disposition home or self-care (01) ==
LOC: CHSLAB 07:33
PROVIDERS: PCP Internal Medicine; Visit Provider Internal Medicine
DX: I10 Essential (primary) hypertension (principal); E78.2 Mixed hyperlipidemia; R73.01 Impaired fasting glucose; E03.4 Atrophy of thyroid (acquired)
CPT/HCPCS: 36415; 80053; 80061; 81001; 83036; 84439; 84443; 84481; 87086

== ENCOUNTER 2025-10-29 13:25 | Outpatient (CLI) | payer OTHER, SELFPAY ==
--- OUTSIDE RECORDS SUMMARY | 2025-10-29 13:41 | XMS_ITS | Clinical Summary ---
Author Organization [facility] Address [facility] [place] [address] Care Team Providers Care Shovel Log Loader Operator Name Role Phone Unavailable Primary Care Provider [...] HPV 2005 Mammogram Screening 2015 COVID-19 Vaccine (2024-2 6 season) 2025 Influenza Adult (#1) 2025 Hepatitis A Vaccines Aged Out No long er eligible based on patient's age to complete this topic Meningococcal B Vaccine Aged Out No l [...]
--- OUTSIDE RECORDS SUMMARY | 2025-10-29 13:41 | XMS_ITS | Clinical Summary ---
Author Organization [facility] Address [address] [place] [address] Care Team Providers Care Installation Superintendent Name Role Phone Chan Daniel MD Primary Care Provider [phone] Chan Daniel MD Unavailable [phone] Myrtle Rivas MD Unavailable [phone] China Gee MD PhD Unavailable + Allergies Active Allergy Reactions Criticality Noted Date Comments Penicillins Rash Medium 06/10/2022 Medications losartan (COZAAR) 100 mg tablet 05/13/2022 Active triamterene-hyd roCHLOROthiazid e 37.5-25 mg per tablet 05/13/2022 Active Njl-Th-Ltvwkecq 0.18/0.215/0.25 mg-25 mcg per tablet 05/29/2022 Active [...] Plan of Treatment Not on file Insurance [facility] Care Teams Installation Superintendent Relationship Specialty Start Date End Date Chan Daniel MD [address] [place] [address] PCP - General Internal Medicine 04/30/22 Chan Daniel MD [address] [place] [address] Referring Physician Internal Medicine 04/30/22 Myrtle Rivas MD [address] [place] [address] Referring Physician Plastic Surgery 07/14/22 China Gee MD PhD [address] [place] [address] Medical Oncologist/Steam Room Attendant Medical Oncology 07/14/22
--- OUTSIDE RECORDS SUMMARY | 2025-10-29 13:41 | XMS_ITS | Encounter Summary ---
Author Organization [facility] Healthcare Address [address] [place] [address] Care Team Providers Care Hook And Eye Machine Operator Name Role Phone Chan Daniel MD Primary Care Provider + [phone] Chan Daniel MD Unavailable [phone] Myrtle Rivas MD Unavailable [phone] China Gee MD PhD Unavailable + Encounter Details Date Type Department Care Team (Late st Contact Info) Description 07/09/2022 Telephone [facility]) [address] [place] [address] Myrtle Rivas MD [address] [facility] [address] [place], [place] [id number] Social History Tobacco Use Types Packs/Day Years [...] on filedocumented in this encounter Care Teams Hook And Eye Machine Operator Relationship Specialty Start Date End Date Chan Daniel MD [address] [place] [address] PCP - General Internal Medicine 04/30/22 Chan Daniel MD [address] [place] [address] Referring Physician Internal Medicine 04/30/22 Myrtle Rivas MD [address] [place] [address] Referring Physician Plastic Surgery 07/14/22 China Gee MD PhD [address] [place] [address] Medical Oncologist/Space Systems Operations Manager Medical Oncology 07/14/22 documented as of this encounter
[2025-10-29 14:06] LABS: Strep Group A RT-PCR NOT DETECTED (Negative)
[2025-10-29 14:18] LABS: Influenza A QL RT-PCR Negative (Negative); Influenza B QL RT-PCR Negative (Negative); RSV RNA, RT-PCR Negative (Negative); SARS-CoV-2 RNA PCR Positive (Negative)
== END 2025-10-29 13:26 | disposition home or self-care (01) ==
LOC: CHSLAB 13:27
PROVIDERS: PCP Internal Medicine; Visit Provider Nurse Practitioner Family
DX: U07.1 COVID-19 (principal); R05.9 Cough, unspecified; J02.9 Acute pharyngitis, unspecified
CPT/HCPCS: 87637; 87651